=== PATIENT | female | born 1990 | race Caucasian/White ===

== ENCOUNTER 2017-10-30 00:32 | Emergency (ER) | payer BC, SELFPAY ==
[2017-10-30 00:45] VITALS: BP 144/80; PULSE 97; RESP 18; TEMP 36.6; O2SAT 97; BMI 18.4
--- NOTE | 2017-10-30 01:12 | HMH.EDANX ---
ED Disposition Clinical Impression: Acute anxiety Disposition: Home, Self-Care Condition on Discharge: Good Instructions: Anxiety and Panic Attacks (Alternative Therapy) Additional Instructions: call pcp for follow up Referrals: Tho Glover MD [Primary Care Provider] - - Critical Care Critical Care Time: No Attestation: On 10/30/17, the high probability of a clinically significant, sudden or life threatening deterioration of the following system(s) required my full and direct attention, intervention and personal management. The time I documented below is in addition to time spent performing reported procedures but includes the following listed in this critical care notation. Medical Decision Making - Medical Records Medical records reviewed: Yes: I reviewed the patient's medical records. Vital Signs: 10/30/17 00:45 Temperature 97.8 F Temperature Source Oral Pulse Rate [Right Brachial] 97 H Respiratory Rate 18 Blood Pressure [Right Arm] 144/80 Blood Pressure Mean [Right Arm] 101 Blood Pressure Source [Right Arm] Automatic Cuff Blood Pressure Position [Right Arm] Sitting 02 Sat by Pulse Oximetry 97 Oxygen Delivery Method Room Air - Lab Data Lab results reviewed: Yes: I reviewed the patient's lab results. Orders (Tests/Meds): ED MEDICATIONS Discontinued Medications Generic Name Dose Route Start Last Admin Trade Name Freq PRN Reason Stop Dose Admin Ondansetron HCl 4 mg 10/30/17 00:53 10/30/17 00:54 Zofran 4mg Odt SL 10/30/17 00:54 4 mg ONCE ONE Administration - River Inquiry Pt receiving controlled substance: No Anxiety HPI - General Chief Complaint: Anxiety Stated Complaint: Panic Attacks Time Seen by Provider: 10/30/17 00:50 Mode of Arrival: Ambulatory Limitations: No Limitations Description of Symptoms (Recalled from ER Triage Doc. by RN): anxiety attack started 2 hours ago. started a new job today, reports she thinks that is what brought it on. - History of Present Illness HPI narrative: hx of anxiety with acute episode complaint: anxiety Onset (ago): hour(s) Severity: similar to previous episodes Place: home History of similar episodes: Yes Provoking factors: work/job stress - Related Data Home Medications: Home Medications Medication Instructions Recorded Confirmed Esomeprazole Magnesium [Nexium] 20 mg PO DAILY 10/30/17 10/30/17 Fluoxetine HCl [Prozac 20mg 20 mg PO DAILY 10/30/17 10/30/17 Capsule] Allergies/Adverse Reactions: Allergies Allergy/AdvReac Type Severity Reaction Status Date / Time No Known Allergies Allergy Verified 10/30/17 00:51 [facility] History I have reviewed the patient's past medical history: Yes Medical History: Denies:: Cancer, Diabetes Mellitus Type 1, Diabetes Mellitus Type 2, MRSA Amputation: No Fractures: No - Social History Educational Level: Completed College Smoking Status: Never smoker Alcohol Intake: never - Psychiatric History Expresses thoughts of harming self/others: None Suicide Plan Description: No Plan ROS Obtained: Yes All systems reviewed & no additional complaints - Constitutional Constitutional: Denies fever(s) - Eyes Eyes: Denies change in vision - ENT Ears, Nose, Mouth, and Throat: Denies sore throat - Cardiovascular Cardiovascular: Denies chest pain - Respiratory Respiratory: No chest congestion - Gastrointestinal Gastrointestingal: Denies: abdominal pain - Musculoskeletal Musculoskeletal: Denies joint pain - Integumentary/Breasts Skin/Breast: Denies rash - Neurologic Neurologic: Denies seizure-like activity Physical Exam - General General appearance: in no apparent distress, anxious - Head Head exam: normocephalic - Eye Eye exam: Present: PERRL, EOMI - ENT ENT exam: Present: mucous membranes moist - Neck Neck exam: Present: trachea midline - Respiratory Respiratory exam: Absent: respiratory distress - Cardiov
--- NOTE | 2017-10-30 01:16 | ED_ITS ---
ED Disposition Clinical Impression: Acute anxiety Disposition: Home, Self-Care Condition on Discharge: Good Instructions: Anxiety and Panic Attacks (Alternative Therapy) Additional Instructions: call pcp for follow up Referrals: Tho Glover MD [Primary Care Provider] - - Critical Care Critical Care Time: No Attestation: On 10/30/17, the high probability of a clinically significant, sudden or life threatening deterioration of the following system(s) required my full and direct attention, intervention and personal management. The time I documented below is in addition to time spent performing reported procedures but includes the following listed in this critical care notation. Medical Decision Making - Medical Records Medical records reviewed: Yes: I reviewed the patient's medical records. Vital Signs: 10/30/17 00:45 Temperature 97.8 F Temperature Source Oral Pulse Rate [Right Brachial] 97 H Respiratory Rate 18 Blood Pressure [Right Arm] 144/80 Blood Pressure Mean [Right Arm] 101 Blood Pressure Source [Right Arm] Automatic Cuff Blood Pressure Position [Right Arm] Sitting 02 Sat by Pulse Oximetry 97 Oxygen Delivery Method Room Air - Lab Data Lab results reviewed: Yes: I reviewed the patient's lab results. Orders (Tests/Meds): ED MEDICATIONS Discontinued Medications Generic Name Dose Route Start Last Admin Trade Name Freq PRN Reason Stop Dose Admin Ondansetron HCl 4 mg 10/30/17 00:53 10/30/17 00:54 Zofran 4mg Odt SL 10/30/17 00:54 4 mg ONCE ONE Administration - [facility] Inquiry Pt receiving controlled substance: No Anxiety HPI - General Chief Complaint: Anxiety Stated Complaint: Panic Attacks Time Seen by Provider: 10/30/17 00:50 Mode of Arrival: Ambulatory Limitations: No Limitations Description of Symptoms (Recalled from ER Triage Doc. by RN): anxiety attack started 2 hours ago. started a new job today, reports she thinks that is what brought it on. - History of Present Illness HPI narrative: hx of anxiety with acute episode complaint: anxiety Onset (ago): hour(s) Severity: similar to previous episodes Place: home History of similar episodes: Yes Provoking factors: work/job stress - Related Data Home Medications: Home Medications Medication Instructions Recorded Confirmed Esomeprazole Magnesium [Nexium] 20 mg PO DAILY 10/30/17 10/30/17 Fluoxetine HCl [Prozac 20mg 20 mg PO DAILY 10/30/17 10/30/17 Capsule] Allergies/Adverse Reactions: Allergies Allergy/AdvReac Type Severity Reaction Status Date / Time No Known Allergies Allergy Verified 10/30/17 00:51 [facility] History I have reviewed the patient's past medical history: Yes Medical History: Denies:: Cancer, Diabetes Mellitus Type 1, Diabetes Mellitus Type 2, MRSA Amputation: No Fractures: No - Social History Educational Level: Completed College Smoking Status: Never smoker Alcohol Intake: never - Psychiatric History Expresses thoughts of harming self/others: None Suicide Plan Description: No Plan ROS Obtained: Yes All systems reviewed & no additional complaints - Constitutional Constitutional: Denies fever(s) - Eyes Eyes: Denies change in vision
--- NOTE | 2017-10-30 01:58 | PC.NURSE ---
ativan ,phenergan im and take home pack verified by Melinda Cosme
[2017-10-30 02:12] VITALS: BP 124/78; PULSE 80; RESP 20; TEMP 36.6; O2SAT 100
== END 2017-10-30 02:15 | disposition home or self-care (01) ==
PROVIDERS: Emergency Provider Emergency Medicine; PCP Family Medicine
DX: F41.0 Panic disorder [episodic paroxysmal anxiety] (principal)
CPT/HCPCS: 96372; 99281

== ENCOUNTER 2019-06-25 10:05 | Outpatient (CLI) | payer BC, SELFPAY ==
[2019-06-25 10:25] VITALS: BP 102/58; PULSE 86; RESP 18; O2SAT 97
[2019-06-25 10:55] VITALS: BP 104/66; PULSE 78; RESP 18
[2019-06-25 11:25] VITALS: BP 114/65; PULSE 84; RESP 18
[2019-06-25 11:55] VITALS: BP 104/55; PULSE 77; RESP 16
[2019-06-25 12:25] VITALS: BP 105/53; PULSE 80; RESP 18
== END 2019-06-25 12:35 | disposition home or self-care (01) ==
LOC: INF 10:05
PROVIDERS: Visit Provider Internal Medicine Hematology & Oncology
DX: Z45.2 Encounter for adjustment and management of vascular access device (principal); C50.211 Malignant neoplasm of upper-inner quadrant of right female breast; F41.9 Anxiety disorder, unspecified; R19.7 Diarrhea, unspecified
CPT/HCPCS: 96360; 96361; J1642

== ENCOUNTER → 2020-11-26 12:04 | Outpatient (CLI) | payer BC, SELFPAY | PROVIDERS: PCP Family Medicine; Visit Provider Plastic Surgery | DX: Z01.818 Encounter for other preprocedural examination (principal); Z20.822 Contact with and (suspected) exposure to COVID-19 | CPT/HCPCS: U0003 ==

== ENCOUNTER 2021-05-19 15:16 | Emergency (ER) | payer BC, SELFPAY ==
[2021-05-19 15:50] VITALS: BP 128/68; PULSE 80; RESP 18; TEMP 36.9; O2SAT 98; BMI 21.5
--- NOTE | 2021-05-19 16:42 | HMH.EDUTC ---
[facility] [place] Clinical Impression: Strep throat Disposition: Home, Self-Care Condition on Discharge: Good Instructions: Strep Throat, DI for Strep Throat, DI for COVID-19 (Suspected or Confirmed ), Preventing the Spread of Coronavirus Discharge Instructions Additional Instructions: *Monitor Temp, Over the counter Motrin or Tylenol as directed/as needed Tylenol every 4 hours and Motrin every 6 hours (as long as your family doctor has told you that you can take it) for fever or pain. and straight to ER if unable to lower temp less than 101.0 after medication given *Warm salt water gargles may help to soothe the throat *Throat Lozenges *Warm fluids like tea with honey may help to soothe the throat *Sleep elevated *Humidifier/Vaporizer *If you did not take Penicillin shot or was unable to, start taking antibiotic immediately and make sure that you take it for the FULL length of time although you should start to feel better in 24-48 hours *change toothbrush and toothpaste 24-48 hours after starting to take antibiotics so you do not reinfect yourself Monitor Temp. Tylenol and/or Ibuprofen as needed. ER if fever is no less than 101 despite alternating Tylenol and Ibuprofen * Encourage fluids, water, Gatorade, powerade, pedialyte if /toddler/or child *Cold fluids, popsicles and ice cream may feel good on his throat Follow up IMMEDIATELY for new or worsening symptoms or no Noticeable improvement over the next 48-72 hours. 911 for difficulty breathing or swallowing You were tested for today for COVID19 your test result should be back in the next 24-48 hours, you may call to the [facility] to see if your test results are back in the next 48 hours [phone] [facility] hours are 9am-9pm You was given a handout with instructions for Self Quarantine and Self isolation for while you wait on test results and what to do if they are positive If you are positive the Health Dept will be contacting you also Make sure to take your Vitamins Vit. C Vit D and Zinc if you can take them Prescriptions: Amoxicillin [Amoxicillin 500mg Cap] 500 mg PO BID 10 Days #20 cap Transmission Status: Pending to [id number] Referrals: Justin Izquierdo [Primary Care Provider] - Forms: Work/School Release Time of Disposition: 16:46 Medical Decision Making - River Inquiry Pt receiving controlled substance: No River was queried for this patient: No Vital Signs: 05/19/21 15:50 Temperature 98.4 F Temperature Source Oral Pulse Rate [Right Brachial] 80 Respiratory Rate 18 Blood Pressure [Right Arm] 128/68 Blood Pressure Mean [Right Arm] 88 Blood Pressure Source [Right Arm] Automatic Cuff Blood Pressure Position [Right Arm] Sitting 02 Sat by Pulse Oximetry 98 Oxygen Delivery Method Room Air - Lab Data Lab results reviewed: Yes: I reviewed the patient's lab results. Orders (Tests/Meds): ORDERS Category Date Time Status Covid-19 Nasal PCR ([facility]) Routine Lab 05/19/21 16:34 Ordered [facility] [place] HPI - General Stated complaint: congestion, runny nose, sore throat, chills Time Seen by Provider: 05/19/21 16:42 Mode of Arrival: Ambulatory Source of Information: Patient Limitations: No Limitations Description of Symptoms (Recalled from Triage Doc. by RN): PATIENT C/O SORE THROAT HEENT Symptoms (Recalled from RN notes): Yes Resp Symptoms (Recalled from RN notes): No Skin Symptoms (Recalled from RN notes): No MS Symptoms (Recalled from RN notes): No Functional Status (Recalled from RN notes): WNL - History of Present Illness Provider Complaint: Patient states that she has not felt well for a couple of days State that she has been having sore throat, cough, headache and body aches State that she is not sure if she may have COVID or strep throat so she wanted to get checked for both - Related Data Home Medications Medication Instructions Recorded Confirmed Buspirone HCl [Buspar 10mg 10 mg PO BID 06/25/19 05/31/20 tablet] LORazepam [A
[2021-05-19 16:49] VITALS: BP 128/68; PULSE 80; RESP 18; TEMP 36.9; O2SAT 98
[2021-05-19 16:51] LABS: UTC Strep Screen (Rapid) Positive (Negative)
== END 2021-05-19 16:51 | disposition home or self-care (01) ==
PROVIDERS: Emergency Provider Nurse Practitioner; PCP Family Medicine
DX: J02.0 Streptococcal pharyngitis (principal); F41.8 Other specified anxiety disorders; Z20.822 Contact with and (suspected) exposure to COVID-19
CPT/HCPCS: 87880; 99203; G0463; U0003

== ENCOUNTER 2021-05-24 08:11 | Emergency (ER) | payer BC, SELFPAY ==
[2021-05-24 08:13] VITALS: BP 116/75; PULSE 113; RESP 18; TEMP 36.8; O2SAT 98; BMI 23.0
--- NOTE | 2021-05-24 08:35 | HMH.EDGENADL ---
ED Disposition Clinical Impression: Dog bite of arm Qualifiers: Encounter type: initial encounter Laterality: right Qualified Code(s): S41.151A - Open bite of right upper arm, initial encounter Disposition: Home, Self-Care Condition on Discharge: Good Prescriptions: Amoxicillin/Potassium Clav [Augmentin 875-125 Tablet] 1 tab PO Q12H #14 tab Transmission Status: Received by [id number] Referrals: Justin Izquierdo [Primary Care Provider] - Time of Disposition: 08:42 - Critical Care Critical Care Time: No Attestation: On , the high probability of a clinically significant, sudden or life threatening deterioration of the following system(s) required my full and direct attention, intervention and personal management. The time I documented below is in addition to time spent performing reported procedures but includes the following listed in this critical care notation. Medical Decision Making - Medical Records Medical records reviewed: Yes: I reviewed the patient's medical records. - River Inquiry Pt receiving controlled substance: No Vital Signs: 05/24/21 08:13 Temperature 98.2 F Temperature Source Oral Pulse Rate [Right Radial] 113 H Respiratory Rate 18 Blood Pressure [Right Arm] 116/75 Blood Pressure Mean [Right Arm] 88 Blood Pressure Source [Right Arm] Automatic Cuff Blood Pressure Position [Right Arm] Sitting 02 Sat by Pulse Oximetry 98 Oxygen Delivery Method Room Air Orders (Tests/Meds): ED MEDICATIONS Discontinued Medications Generic Name Dose Route Start Last Admin Trade Name Freq PRN Reason Stop Dose Admin Tetanus/Reduced Diphtheria/Acell Pertussis 0.5 ml 05/24/21 08:35 Tet/Diphth/Pert-Adult 0.5ml Syringe IM 05/24/21 08:36 .ONCE ONE Medical Decision Narrative: 30yo F evaluated for dog bite wounds to her right forearm. Patient no acute distress. Wounds are small and not actively bleeding. They were irrigated and reapproximated with Steri-Strips to allow for better drainage and lower risk of significant infection. Patient home on antibiotics. Follow-up with PCP 3 to 4 days. General Adult HPI - General Stated complaint: [id number] dog bite to right arm Time Seen by Provider: 05/24/21 08:35 Mode of Arrival: Ambulatory - History of Present Illness HPI narrative: 30yo F presents the emergency department after a dog bite to her right forearm. Patient has 2 dogs that she was attempting to hold apart from fighting when one slipped out of her hand and bit her arm. Both dogs are up-to-date on their shots. Patient does not know last time she got tetanus shot. No other complaints at this time. - Related Data Home Medications Medication Instructions Recorded Confirmed Buspirone HCl [Buspar 10mg 10 mg PO BID 06/25/19 05/31/20 tablet] LORazepam [Ativan 0.5mg 0.5 mg PO Q4HP PRN 06/25/19 05/31/20 tablet] tamoxifen 20 mg tablet mg PO 11/03/19 05/31/20 venlafaxine 75 mg capsule,extended mg PO 11/03/19 05/31/20 release 24 hr Previous Rx's Medication Instructions Recorded nitrofurantoin 100 mg PO Q12H PRN 5 Days #10 cap 05/31/20 monohydrate/macrocrystals 100 mg capsule Amoxicillin [Amoxicillin 500mg 500 mg PO BID 10 Days #20 cap 05/19/21 Cap] Amoxicillin/Potassium Clav 1 tab PO Q12H #14 tab 05/24/21 [Augmentin 875-125 Tablet] Allergies Allergy/AdvReac Type Severity Reaction Status Date / Time No Known Allergies Allergy Verified 05/31/20 18:24 [facility] History - Hepatitis A Screen Drug use history?: No Attestation statement:: This patient has been screened for Hepatitis A risk factors. I have reviewed the patient's past medical history: Yes Medical History: Reports:: Anxiety, Cancer, Depression Denies:: Diabetes Mellitus Type 1, Diabetes Mellitus Type 2, MRSA Other Medical History: Reports: Chemotherapy, Sinus Problems Other Surgeries: Yes: , Diagnostic Lap, EGD, Hysterectomy-Total Amputation: N
--- NOTE | 2021-05-24 08:50 | PC.NURSE ---
Faxed animal bite form to health dept
[2021-05-24 09:50] VITALS: BP 117/77; PULSE 99; RESP 20; TEMP 36.8; O2SAT 98
== END 2021-05-24 09:51 | disposition home or self-care (01) ==
PROVIDERS: Emergency Provider Family Medicine; PCP Family Medicine
DX: S41.151A Open bite of right upper arm, initial encounter (principal); W54.0XXA Bitten by dog, initial encounter; Z23 Encounter for immunization; F41.8 Other specified anxiety disorders
CPT/HCPCS: 90471; 90715; 99281

== ENCOUNTER → 2021-10-03 15:05 | Outpatient (CLI) | payer BC, SELFPAY | PROVIDERS: Visit Provider Nurse Practitioner | DX: U07.1 COVID-19 (principal) | CPT/HCPCS: C9803; U0003; U0005 ==

== ENCOUNTER → 2022-12-20 13:11 | Outpatient (CLI) | payer BC, SELFPAY ==
[2022-12-20 15:32] LABS: 25-OH Vitamin D, Total 61.5 ng/mL (30-100)
[2022-12-20 16:33] LABS: Vitamin B12 278 pg/mL (239-931)
[2022-12-20 17:10] LABS: Iron 122 ug/dL (37-170)
[2022-12-20 17:57] LABS: Ferritin 34.6 ng/ml (6.24-137)
[2022-12-20 18:39] LABS: Total Iron Binding Capacity 349 ug/dL (265-497)
== END ==
PROVIDERS: PCP Family Medicine; Visit Provider Internal Medicine Hematology & Oncology
DX: D70.9 Neutropenia, unspecified (principal)
CPT/HCPCS: 36415; 82306; 82607; 82728; 82746; 83540; 83550

== ENCOUNTER → 2023-04-17 08:34 | Outpatient (POV) | payer BC, SELFPAY | PROVIDERS: Visit Provider Dermatology | DX: Z00.00 Encounter for general adult medical examination without abnormal findings (principal) ==

== ENCOUNTER 2023-06-10 17:37 | Emergency (ER) | payer BC, SELFPAY ==
[2023-06-10] VITALS (7 sets, daily range): BP systolic 119–147; BP diastolic 57–79; PULSE 61–96; RESP 18–20; TEMP 37.2; O2SAT 99–100; BMI 22.5
--- NOTE | 2023-06-10 17:57 | CT_ITS ---
PROCEDURE INFORMATION: Exam: CT Abdomen And Pelvis With Contrast Exam date and time: 06/10/2023 6:50 PM Age: 32 years old Clinical indication: Abdominal pain; Additional info: Epigastric/ruq pain TECHNIQUE: Imaging protocol: Computed tomography of the abdomen and pelvis with contrast. Radiation optimization: All CT scans at this facility use at least one of these dose optimization techniques: automated exposure control; mA and/or kV adjustment per patient size (includes targeted exams where dose is matched to clinical indication); or iterative reconstruction. Contrast material: ISOVUE; Contrast volume: 75 ml; Contrast route: IV; REPORTING DATA: Count of CT and Cardiac NM exams in prior 12 months: This patient has received 0 known CTs and 0 known cardiac nuclear medicine studies in the 12 months prior to the current study. COMPARISON: CR [id number] XR ribs LT min 3V w CXR1V 05/21/2018 9:03 PM FINDINGS: Lungs: There are areas of subpleural reticulation throughout the visualized lungs which are nonspecific. Liver: Normal. No mass. Gallbladder and bile ducts: There is cholelithiasis within an otherwise normal gallbladder. Pancreas: Normal. No ductal dilation. Spleen: Normal. No splenomegaly. Adrenal glands: Normal. No mass. Kidneys and ureters: There is a 2.1 x 1.7 cm lesion emanating from the upper pole of the left kidney (image 25 series 3), concerning for soft tissue mass. Stomach and bowel: Unremarkable. No obstruction. No mucosal thickening. Appendix: No evidence of appendicitis. Intraperitoneal space: Unremarkable. No free air. No significant fluid collection. Vasculature: Unremarkable. No abdominal aortic aneurysm. Lymph nodes: Unremarkable. No enlarged lymph nodes. Urinary bladder: Unremarkable as visualized. Reproductive: The patient has undergone prior hysterectomy. 1.7 cm left ovarian cyst. Bones/joints: Unremarkable. No acute fracture. Soft tissues: There are bilateral breast implants. There is a small fat containing umbilical hernia. IMPRESSION: 1. 2.1 cm left upper pole renal lesion. 2. Cholelithiasis without CT evidence for acute cholecystitis. COMMENTS: Consistent with the [place]'s Incidental Findings Committee white paper (J Am Jannie Radiol 2018): Any incidental renal lesion less than 1 cm or classified as too small to characterize, or any incidental cystic renal lesion characterized as simple-appearing, is likely benign. No follow-up imaging is recommended for these lesions per consensus recommendations based on imaging criteria.
--- NOTE | 2023-06-10 17:59 | XR_ITS ---
PROCEDURE INFORMATION: Exam: XR Chest Exam date and time: 06/10/2023 7:01 PM Age: 32 years old Clinical indication: Pain; Chest pressure; Additional info: Chest/epigastric pain TECHNIQUE: Imaging protocol: Radiologic exam of the chest. Views: 1 view. COMPARISON: CR [id number] XR ribs LT min 3V w CXR1V 05/21/2018 9:03 PM FINDINGS: Limitations: The patient is wearing a bra which minimally limits the study. Lungs: Unremarkable. No consolidation. Pleural spaces: Unremarkable. No pleural effusion. No pneumothorax. Heart/Mediastinum: Unremarkable. No cardiomegaly. Bones/joints: Unremarkable for patient age. IMPRESSION: No dense parenchymal consolidation, pleural effusion, or pneumothorax.
--- NOTE | 2023-06-10 18:07 | HMH.EDGENADL ---
Discharge Plan Disposition Patient Disposition: Home, Self-Care Condition: Good Prescriptions Prescriptions: New pantoprazole 40 mg tablet,delayed release (DR/EC) 40 mg PO DAILY Qty: 30 0RF famotidine [Pepcid] 20 mg tablet 20 mg PO BID Qty: 60 0RF No Action tamoxifen 20 mg tablet PO Patient Comments: TAKE 1 TABLET BY MOUTH ONCE DAILY venlafaxine 75 mg capsule,extended release 24hr PO Patient Comments: TAKE 1 CAPSULE BY MOUTH ONCE DAILY nitrofurantoin monohyd/m-cryst 100 mg capsule 100 mg PO Q12H PRN (Reason: uti) 5 Days Qty: 10 0RF Rx Instructions: must administer with a meal/food lorazepam 0.5 MG tablet 0.5 mg PO Q4HP PRN (Reason: Anxiety) buspirone 10 MG tablet 10 mg PO BID amoxicillin 500 MG capsule 500 mg PO BID 10 Days Qty: 20 0RF amoxicillin-pot clavulanate 1 EACH tablet 1 tab PO Q12H Qty: 14 0RF Referrals Follow up/Referrals: Justin Izquierdo [Primary Care Provider] - See instructions Activity Restrictions/Add. Instructions Additional Instructions/Restrictions: You were evaluated in the emergency department today. Please bead picker your prescriptions at the pharmacy and take them as prescribed. Stop taking your omeprazole. Follow-up closely with your primary care provider. I also recommend close follow-up with gastroenterology for management of your acid reflux. It may be worthwhile to be evaluated by a surgeon for evaluation of your hiatal hernia as well. You do have a lesion on your left kidney noted on CT scan. We are unsure what this is at this time, however I recommend following up with your oncologist and primary care provider for further work-up of this. Please return to the emergency department for any new or worsening symptoms. Clinical Impressions Clinical Impression: Hiatal hernia with GERD, Elevated lipase, Left kidney mass, Cholelithiasis Instructions Patient Instructions: DI for Gastroesophageal Reflux Disease (GERD) Discharge ED Provider: Samantha Hendricks General Adult HPI General Chief complaint: PAIN Stated complaint: Middle Abd Pain Time Seen by Provider: 06/10/23 17:48 History of Present Illness HPI narrative: This patient is a 32-year-old female with a history of hiatal hernia, GERD, breast cancer status post surgery as well as chemo/radiation, and hysterectomy who presented to the emergency department for evaluation with concern for epigastric pain, nausea, frequent belching, and loss of appetite. This has been going on for approximate 2 months now but is acutely worsened over the last 4 days. She states that she has been on omeprazole and has been trying Carafate at home without significant improvement. She denies any fevers, chills, vomiting, chest pain, shortness of breath, dysuria, or other concerns, but she does note that she has had nausea as well as diarrhea. Nothing seems to make her symptoms better or worse. Related Data Home Medications Medication Instructions Recorded Confirmed buspirone 10 mg tablet 10 mg PO BID Depression 06/25/19 05/31/20 lorazepam 0.5 mg tablet 0.5 mg PO Q4HP PRN Anxiety 06/25/19 05/31/20 tamoxifen 20 mg tablet mg PO 11/03/19 05/31/20 venlafaxine 75 mg capsule,extended mg PO 11/03/19 05/31/20 release 24 hr Previous Rx's Medication Instructions Recorded nitrofurantoin 100 mg PO Q12H PRN uti 5 days #10 05/31/20 monohydrate/macrocrystals 100 mg caps capsule amoxicillin 500 mg capsule 500 mg PO BID 10 days #20 caps 05/19/21 amoxicillin 875 mg-potassium 1 tab PO Q12H #14 tabs 05/24/21 clavulanate 125 mg tablet famotidine 20 mg tablet (Pepcid) 20 mg PO BID #60 tabs 06/10/23 pantoprazole 40 mg tablet,delayed 40 mg PO DAILY #30 tabs 06/10/23 release Allergies Allergy/AdvReac Type Severity Reaction Status Date / Time No Known Allergies Allergy Verified 05/31/20 18:24 [facility] Disclaimer: The information contained in this section may have been u
--- NOTE | 2023-06-10 18:09 | ECG_ITS ---
APPROVED REPORT Exam: Resting ECG HR:98 bpm ECG Measurements Heart Rate 98 AXES AK 120 P 56 QRSd 84 QRS 80 QT 383 T 54 QTc 438 Conclusion SINUS RHYTHM NORMAL ECG UNCONFIRMED REPORT Electronically signed by : Louis Mayo MD 06/11/2023 17:09:47
[2023-06-10 18:36] LABS: Alanine Aminotransferase 47 U/L (12-78); Albumin Level 4.9 g/dl (3.5-5.0); Albumin/Globulin Ratio 1.5 (1.1-1.8); Alkaline Phosphatase 39 U/L (38-126); Anion Gap 17.1 mEq/L (5-15); Aspartate Amino Transferase 50 U/L (14-36); Bilirubin,Total 1.1 mg/dl (0.2-1.3); Blood Urea Nitrogen 14 mg/dl (7-17); Calcium 9.4 mg/dl (8.4-10.2); Carbon Dioxide 21 mmol/L (22.0-30.0); Chloride 107 mmol/L (98-107); Creatinine Clearance Estimated 104 mL/min (50-200); Estimated Glomerular Filt Rate 83 ml/min (>60); GFR (African American) 101 ML/MIN (>60); Globulin 3.3 g/dL (1.3-3.2); Glucose 95 mg/dl (74-100); Lipase 362 U/L (23-300); Potassium 4.1 mmoL/L (3.5-5.1); Sodium 141 mmol/L (136-145); Total Protein,Serum 8.2 g/dl (6.3-8.2)
[2023-06-10 18:46] LABS: Basophils % 0.5 % (0.1-2.0); Eosinophils # 0.1 K/mm3 (0.0-0.4); Eosinophils % 2.2 % (0.1-12.0); Hematocrit 41.2 % (37.0-47.0); Hemoglobin 13.1 g/dL (12.2-16.2); Lymphocytes % 37.4 % (10-50); Mean Corpuscular HGB Conc 31.9 g/dL (31.8-35.4); Mean Corpuscular Hemoglobin 29.6 pg (27.0-31.2); Mean Corpuscular Volume 93.1 fl (81-99); Mean Platelet Volume 8.3 fl (7.4-10.4); Monocytes # 0.3 K/mm3 (0.1-1.0); Monocytes % 6.2 % (1.7-9.3); Neutrophils # 2.8 K/mm3 (1.8-7.8); Neutrophils % 53.7 % (37.0-80.0); Platelet Count 236 K/mm3 (142-424); Red Blood Count 4.43 M/mm3 (4.20-5.40); Red Cell Distribution Width 12.1 % (11.5-17.5); White Blood Count 5.3 K/mm3 (4.8-10.8)
== END 2023-06-10 20:17 | disposition home or self-care (01) ==
PROVIDERS: Emergency Provider Emergency Medicine; PCP Family Medicine
DX: K80.20 Calculus of gallbladder without cholecystitis without obstruction (principal); N28.9 Disorder of kidney and ureter, unspecified; K21.9 Gastro-esophageal reflux disease without esophagitis; K44.9 Diaphragmatic hernia without obstruction or gangrene; Z85.3 Personal history of malignant neoplasm of breast
CPT/HCPCS: 71045; 74177; 80053; 83690; 85025; 93005; 96361; 96374; 96375; 99285; J2405; Q9967

== ENCOUNTER 2024-07-22 14:15 | Outpatient (CLI) | payer BC, SELFPAY ==
[2024-07-22 15:01] LABS: Basophils # 0.1 K/mm3 (0-0.2); Eosinophils # 0.1 K/mm3 (0.0-0.4); Eosinophils % 1.7 % (0.1-12.0); Hematocrit 42.3 % (37.0-47.0); Hemoglobin 14.1 g/dL (12.2-16.2); Lymphocytes # 1.9 K/mm3 (0.7-4.5); Lymphocytes % 34.4 % (10-50); Mean Corpuscular HGB Conc 33.3 g/dL (31.8-35.4); Mean Corpuscular Hemoglobin 31.9 pg (27.0-31.2); Mean Corpuscular Volume 95.8 fl (81-99); Mean Platelet Volume 7.8 fl (7.4-10.4); Monocytes # 0.3 K/mm3 (0.1-1.0); Monocytes % 5.7 % (1.7-9.3); Neutrophils # 3.1 K/mm3 (1.8-7.8); Neutrophils % 57.2 % (37.0-80.0); Platelet Count 187 K/mm3 (142-424); Red Blood Count 4.41 M/mm3 (4.20-5.40); Red Cell Distribution Width 12.5 % (11.5-17.5); White Blood Count 5.5 K/mm3 (4.8-10.8)
[2024-07-22 15:10] LABS: Alanine Aminotransferase 15 U/L (12-78); Albumin Level 4.8 g/dl (3.5-5.0); Albumin/Globulin Ratio 1.8 (1.1-1.8); Alkaline Phosphatase 50 U/L (38-126); Amylase 74 U/L (30-110); Anion Gap 0.4 mEq/L (5-15); Aspartate Amino Transferase 27 U/L (14-36); Bilirubin,Total 0.7 mg/dl (0.2-1.3); Blood Urea Nitrogen 10 mg/dl (7-17); Calcium 9.3 mg/dl (8.4-10.2); Carbon Dioxide 28 mmol/L (22.0-30.0); Chloride 114 mmol/L (98-107); Estimated Glomerular Filt Rate 83 ml/min (>60); GFR (African American) 100 ML/MIN (>60); Globulin 2.6 g/dL (1.3-3.2); Glucose 87 mg/dl (74-100); Lipase 70 U/L (23-300); Potassium 3.4 mmoL/L (3.5-5.1); Sodium 139 mmol/L (136-145); Total Protein,Serum 7.4 g/dl (6.3-8.2)
[2024-07-22 15:20] LABS: Total Iron Binding Capacity 281 ug/dL (265-497)
[2024-07-22 15:45] LABS: Ferritin 42.3 ng/ml (6.24-137)
[2024-07-22 15:59] LABS: Vitamin B12 271 pg/mL (239-931)
[2024-07-22 16:12] LABS: Iron 127 ug/dL (37-170)
[2024-07-23 16:18] LABS: Deamidated Gliadin Abs, IgA 10 units (0-19); Deamidated Gliadin Abs, IgG 2 units (0-19); Endomysial IgA Antibody Negative (Negative); Tissue Transglutaminase IgA Ab <2 U/mL (0-3); Tissue Transglutaminase IgG Ab <2 U/mL (0-5)
[2024-07-25 08:22] LABS: Reticulin IgA Antibody Negative titer (Neg:<1:2.5)
[2024-08-06 06:19] LABS: 1,25 Dihydroxy Vitamin D 48 pg/mL (.); 1,25-Dihydroxy, Vitamin D-2 <10 pg/mL (.); 1,25-Dihydroxy, Vitamin D-3 48 pg/mL (.)
== END 2024-07-22 23:59 | disposition home or self-care (01) ==
LOC: LAB 14:16
PROVIDERS: PCP Nurse Practitioner; Visit Provider Internal Medicine Gastroenterology
DX: K85.90 Acute pancreatitis without necrosis or infection, unspecified (principal); R10.13 Epigastric pain; R14.0 Abdominal distension (gaseous); K74.69 Other cirrhosis of liver; B19.20 Unspecified viral hepatitis C without hepatic coma
CPT/HCPCS: 36415; 80053; 82150; 82607; 82652; 82728; 83516; 83540; 83550; 83690; 85025; 86255; 86256

== ENCOUNTER 2024-08-03 12:45 | Outpatient (CLI) | payer BC, SELFPAY ==
[2024-08-05 17:10] LABS: Pancreatic Elastase, Fecal >800 (>200)
== END 2024-08-03 23:59 | disposition home or self-care (01) ==
LOC: LAB 12:47
PROVIDERS: PCP Nurse Practitioner; Visit Provider Internal Medicine Gastroenterology
DX: K85.90 Acute pancreatitis without necrosis or infection, unspecified (principal); R10.13 Epigastric pain; R14.0 Abdominal distension (gaseous)
CPT/HCPCS: 82656

== ENCOUNTER 2024-08-19 13:48 | Outpatient (CLI) | payer BC, SELFPAY ==
[2024-08-19 14:42] VITALS: BMI 19.0
== END 2024-08-19 23:59 | disposition home or self-care (01) ==
LOC: DIETICIAN 13:48
PROVIDERS: PCP Nurse Practitioner; Visit Provider Internal Medicine Gastroenterology
DX: E74.31 Sucrase-isomaltase deficiency (principal)
CPT/HCPCS: 97802

== ENCOUNTER 2025-06-12 13:00 | Outpatient (CLI) | payer BC, SELFPAY ==
--- OUTSIDE RECORDS SUMMARY | 2025-06-12 13:03 | XMS_ITS | Encounter Summary ---
Author Organization [employer] ([place], [place], [place], [place]) Address [address] [place] [address] Care Team Providers Care Electroneurodiagnostic Technologist Name Role Phone Ida Manzo MD Primary Care Provider [phone] Encounter Details Date Type Department Care Team (Late st Contact Info) Description 08/17/2019 Transcribed Document [facility] [address] [place] [address] Feliz Goldberg MD [address] [facility] [place] [address] Social History Tobacco Use Types Packs/Day Years Used Date Smoking Tobacco: Never Assessed Comments Unknown Sex and Gender Information Value Date Recorded Sex Assigned at Not on file Legal Sex Female 6:39 PM CDT Gender Identity Not on file Sexual Orientation Not on file documented as of this encounter Miscellaneous Notes * Cerner Conversion Note - Feliz Goldberg MD - 08/17/2019 4:14 PM EST Electronically signed by Pato Jovel Conversion Family And Divorce Legal Assistant Cerner at 12/24/2022 11:29 PM CDT documented in this encounter Plan of Treatment Upcoming Encounters Date Type Department Care Team (Late st Contact Info) Description 06/15/2025 3:00 PM EDT Appointment [facility] Breast [facility] [address] [facility] [address] [place] [address] 08/10/2025 1:15 PM EST Office [facility] [address] [place] [phone] Ida Manzo MD [facility] [address] [place] [address] documented as of this encounter Visit Diagnoses Not on filedocumented in this encounter Care Teams Electroneurodiagnostic Technologist Relationship Specialty Start Date End Date Ida Manzo MD [facility] [address] [place] [address] PCP - General Hematology and Oncology 10/13/22 documented as of this encounter
--- OUTSIDE RECORDS SUMMARY | 2025-06-12 13:03 | XMS_ITS | Encounter Summary ---
Author Organization [employer] ([place], [place], [place], [place]) Address [address] [place] [address] Care Team Providers Care Merchandise Distributor Name Role Phone Ida Manzo MD Primary Care Provider [phone] Encounter Details Date Type Department Care Team (Late st Contact Info) Description 08/18/2019 Transcribed Document [facility] [place] [place] Family Medicine [facility] [place] [address] ProviderAdy MD [address] [place] [address] Social History Tobacco Use Types Packs/Day Years Used Date Smoking Tobacco: Never Assessed Comments Unknown Sex and Gender Information Value Date Recorded Sex Assigned at Not on file Legal Sex Female 6:39 PM CDT Gender Identity Not on file Sexual Orientation Not on file documented as of this encounter Miscellaneous Notes * Cerner Conversion Note - Historical ProviderMD - 08/18/2019 12:02 AM DIRECTOR OF STUDENT FINANCIAL SERVICES CR Chest 1 Vw Portable Ordered: 08/17/2019 Modified Reason for Exam: cp 08/17/2019 13:54 08/18/2019 00:02 (Steff Jacobs, Bulk Sugar Handler) No further action required documented in this encounter Plan of Treatment Upcoming Encounters Date Type Department Care Team (Late st Contact Info) Description 06/15/2025 3:00 PM EDT Appointment [address] [address] 08/10/2025 1:15 PM EST Office Visit [facility] - Vicki [address] [facility] [address] [place] [address] Ida Manzo MD [facility] [address] [place] [phone] documented as of this encounter Visit Diagnoses Not on filedocumented in this encounter Care Teams Merchandise Distributor Relationship Specialty Start Date End Date Ida Manzo MD [address] [facility] [address] [place] [address] PCP - General Hematology and Oncology 10/13/22 documented as of this encounter
--- OUTSIDE RECORDS SUMMARY | 2025-06-12 13:03 | XMS_ITS | Encounter Summary ---
Author Organization [employer] ([place], [place], [place], [place]) Address [address] [place] [address] Care Team Providers Care Reserve Officer Name Role Phone Ida Manzo MD Primary Care Provider [phone] Encounter Details Date Type Department Care Team (Late st Contact Info) Description 09/24/2019 Transcribed Document [facility] Surgery - [place] [place] [address] Travis Small MD [address] [place] [address] Social History Tobacco Use Types Packs/Day Years Used Date Smoking Tobacco: Never Assessed Comments Unknown Sex and Gender Information Value Date Recorded Sex Assigned at Not on file Legal Sex Female 6:39 PM CDT Gender Identity Not on file Sexual Orientation Not on file documented as of this encounter Miscellaneous Notes * Cerner Conversion Note - Travis Small MD - 09/24/2019 1:18 PM EST DATE OF PROCEDURE: 09/24/2019 SURGEON: Travis Small MD PREOPERATIVE DIAGNOSIS: Right breast cancer. POSTOPERATIVE DIAGNOSIS: Right breast cancer. PROCEDURE PERFORMED: 1. Right needle localized partial mastectomy. 2. Right axillary sentinel lymph node biopsy. ANESTHESIA: General. ESTIMATED BLOOD LOSS: Minimal. COMPLICATIONS: None. OPERATIVE INDICATIONS: Ms. Pollack is a 29-year-old female patient, who has recently completed neoadjuvant chemotherapy for an invasive right breast cancer. She has had an excellent clinical response. She requested breast conserving surgery and after the risks and benefits of operative intervention were explained to her, she wished to proceed. OPERATIVE FINDINGS: 1. She had a residual breast cancer and biopsy clip needle localized on the right. 2. The deep margin of the specimen was taken to the level of the pectoralis major muscle. 3. A single deep axillary sentinel lymph node was removed and sent to Pathology. OPERATIVE DESCRIPTION: After obtaining informed consent, Ms. Pollack was taken to the operative room, placed in supine position. General anesthesia was induced. Her right breast was prepped and draped in usual sterile fashion. Attention was turned to the needle localization wire. A small skin incision was made adjacent to the wire and dissection down into the breast tissue was achieved using electrocautery. Electrocautery was then used to excise the breast tissue surrounding the needle localization wire circumferentially and with adequate margins. The deep margin of the specimen was taken down to the level of the pectoralis major muscle. The implant capsule was not adjacent to this or in the area. The specimen was removed and oriented with a short stitch superiorly and a long stitch laterally. It was further marked with black ink deep and passed off to the Breast Center for specimen mammogram. Intraoperative confirmation confirmed that the residual abnormality and biopsy clip were contained within the specimen. Meticulous hemostasis was ensured using electrocautery. Attention was then turned to the right axilla where the gamma probe was used to identify the area of greatest uptake. A small skin incision was made overlying this area and dissection into the axillary tissue was achieved using electrocautery. Next, the gamma probe was used to identify single deep axillary sentinel lymph node. It was removed using electrocautery and surgical clips. It was passed off and sent to Pathology. There was no other significant uptake in the axilla. Meticulous hemostasis was ensured using electrocautery. Both skin incisions were then closed in 2 layers, followed by Dermabond. All sponge, needle, and instrument counts were correct at the end of the procedure. There were no complications. Ms. Pollack tolerated the procedure well. Finally, Ms. Pollack was extubated and taken to PACU in stable condition. /[id number] MD IDA Moe/AQ / IDA / MODL /[id number] CC: [facility] MD Travis Steele MD documented in this encounter Plan of Treatment Upcoming Encounters Date Type Department Care Team (Late st Contact Info) Description 06/15/2025 3:00 PM EDT Appointment [facility] [address] [facility] [address] [place] [address] 08/10/2025 1:15 PM EST [facility] [address] [place] [phone] Ida Manzo MD [address] [place] [address] [address] [place] [address] documented as of this encounter Visit Diagnoses Not on filedocumented in this encounter Care Teams Reserve Officer Relationship Specialty Start Date End Date Ida Manzo MD [address] [place] [address] [address] [place] [phone] PCP - General Hematology and Oncology 10/13/22 documented as of this encounter
--- OUTSIDE RECORDS SUMMARY | 2025-06-12 13:03 | XMS_ITS | Encounter Summary ---
Author Organization [employer] ([place], [place], [place], [place]) Address [address] [place] [address] Care Team Providers Care Corporate Technical Recruiter Name Role Phone Ida Manzo MD Primary Care Provider [phone] Encounter Details Date Type Department Care Team (Late st Contact Info) Description 09/24/2019 Transcribed Document [facility] [place] [address] ProviderAdy MD [address] [place], [place] [address] Social History Tobacco Use Types Packs/Day Years Used Date Smoking Tobacco: Never Assessed Comments Unknown Sex and Gender Information Value Date Recorded Sex Assigned at Not on file Legal Sex Female 6:39 PM CDT Gender Identity Not on file Sexual Orientation Not on file documented as of this encounter Miscellaneous Notes * Cerner Conversion Note - Ady ProviderMD - 09/24/2019 11:17 AM [facility] Main OR PostOp Summary Primary Physician: JULIA ESCALANTE MD-SUR Finalized Date/Time: 09/24/19 14:16:41 Pt. Name: MAGGI POLLACKDENISE Edwards D.O.B./Sex: 1990 Female Med Rec #: [id number] Physician: JULIA ESCALANTE MD-SUR Financial #: [id number] Pt. Type: O Room/Bed: [facility]/ Admit/Disch: 09/24/19 06:38:00 - Institution: [facility] Main OR PostOp Case Times Entry 1 In PACU II 09/24/19 13:02:00 Ready for PACU II 09/24/19 14:00:00 Discharge Discharge from PACU 09/24/19 14:00:00 II Last Modified By: Michelle Crain RN 09/24/19 14:16:38 [facility] Main OR PostOp Case Times Audit 09/24/19 14:16:38 Swamper: [id number] Modifier: [id number] <+> 1 Ready for PACU II Discharge <+> 1 Discharge from PACU II Finalized By: Michelle Crain, RN Document Signatures Signed By: Michelle Crain RN 09/24/19 14:16 documented in this encounter Plan of Treatment Upcoming Encounters Date Type Department Care Team (Late st Contact Info) Description 06/15/2025 3:00 PM EDT Appointment [address] [place] [address] 08/10/2025 1:15 PM EST Office Visit [place] [facility] - Vicki [facility] V[facility] [address] [place] [phone] Ida Manzo MD [address] [place] [address] [address] [place] [address] documented as of this encounter Visit Diagnoses Not on filedocumented in this encounter Care Teams Corporate Technical Recruiter Relationship Specialty Start Date End Date Ida Manzo MD [address] [place] [address] PCP - General Hematology and Oncology 10/13/22 documented as of this encounter
--- OUTSIDE RECORDS SUMMARY | 2025-06-12 13:03 | XMS_ITS | Encounter Summary ---
Author Organization [employer] ([place], [place], [place], [place]) Address [address] [place] [address] Care Team Providers Care Tanning Wheel Filler Name Role Phone Gregor Manzo MD Primary Care Provider [phone] Encounter Details Date Type Department Care Team (Late st Contact Info) Description 08/17/2019 Transcribed Document [facility] Family [place] [address] ProviderAdy MD [address] [place] [address] Social History Tobacco Use Types Packs/Day Years Used Date Smoking Tobacco: Never Assessed Comments Unknown Sex and Gender Information Value Date Recorded Sex Assigned at Not on file Legal Sex Female 6:39 PM CDT Gender Identity Not on file Sexual Orientation Not on file documented as of this encounter Miscellaneous Notes * Cerner Conversion Note - Ady Casillas MD - 08/17/2019 3:36 PM PEDIATRIC CARE COORDINATOR [address] [address] ARAM POLLACK :1990 Visit Time:08/17/2019 Your Visit Summary Your Care Team Primary Provider: ALKA ANNE Secondary Provider: Your Diagnosis Breast cancer Cough Fever Fever Medical Information You may obtain a copy of your Emergency Department visit from Medical Records by calling the hospital phone number listed above and asking to be directed to the Medical Records Department. If you had special tests, such as EKG???s or X-rays, the interpretation of your tests given to you by the Emergency Department Physician is a preliminary report. Some fractures and illnesses fail to show up on preliminary tests. These will be reviewed again and we will call you if there are any new suggestions. If your symptoms continue notify your physician. After you leave, you should follow the instructions provided. What to do next Follow-Up Appointments Follow Up with GREGOR MANZO When Within 2 to 3 days Where: [address] [place] [address]- [facility] (1) Follow Up with KATHRYN KIM When Within 2 to 3 days Where: [address] [place] [address]- [facility] (1) Allergies No Known Medication Allergies Immunizations This Visit No Immunizations Found Medications What How Much When Instructions Next Dose New azithromycin (Azithromycin 5 Day Dose Pack 250 mg oral tablet) See instructions as directed on package labeling Printed Prescription The home medications listed are only as accurate as the information you provided. Please continue taking all of your medications prescribed by your Primary Care Provider unless specifically told to change or discontinue the medication. Please direct any questions regarding your home medications to your Primary Care Provider. Take your medications faithfully. Do NOT skip medication. Do NOT stop taking medications without the direction of a physician. Carry a list of your medications with you at all times, and take this medication list with you to your first follow up visit. Report any side effects. Avoid herbal remedies unless discussed with your physician. As part of your treatment plan, your physician may have prescribed a limited course of a controlled substance. This medication may be given to help people with moderate or severe pain or for other medical conditions, but there are risks involved with treatment. Common side effects may include nausea, constipation, drowsiness, sweating, itching, dry mouth, and rash. More serious side effects may include cognitive and motor impairment, like problems with thinking, concentrating, alertness, and movement (e.g. slowed reflexes), and driving and operating heavy machinery can be dangerous. It is important for you to talk to your physician if you have these side effects or questions. These controlled substances can produce physical dependence and be habit-forming if taken for an extended period of time, which means that the body has gotten used to them and may experience withdrawal symptoms if they are abruptly stopped. Withdrawal symptoms can include runny nose, sweating, goose bumps, diarrhea, abdominal cramping, rapid heartbeat, difficulty sleeping, and nervousness. Please dispose of unused and medications per pharmacy guidance. Test Results Laboratory or Other Results This Visit (last charted value for your 08/17/2019 visit) Hematology 08/17/2019 1:00 PM WBC: 9.4 K/uL -- Normal range between ( 3.9 and 10.0 ) RBC: 3.40 Million/uL -- Normal range between ( 3.93 and 5.22 ) Hct: 35.8 % -- Normal range between ( 34.1 and 44.9 ) Hgb: 11.9 Gram/dL -- Normal range between ( 11.2 and 15.7 ) Platelet Count: 84 K/uL -- Normal range between ( 163 and 369 ) MCH: 35.0 pg -- Normal range between ( 25.6 and 32.2 ) MCHC: 33.2 Gram/dL -- Normal range between ( 32.3 and 36.5 ) MCV: 105.3 fL -- Normal range between ( 79.0 and 94.8 ) Slide Review: No Eos %: 0.0 % -- Normal range between ( 1.0 and 7.0 ) [place] #: 0.11 K/uL -- Normal range between ( 0.24 and 0.82 ) Eos #: 0.00 K/uL -- Normal range between ( 0.04 and 0.54 ) [place] %: 1.2 % -- Normal range between ( 4.7 and 12.5 ) Baso %: 0.1 % -- Normal range between ( 0.0 and 1.0 ) Baso #: 0.01 K/uL -- Normal range between ( 0.01 and 0.08 ) RDW: 15.1 % -- Normal range between ( 11.6 and 14.4 ) Neut %: 96.7 % -- Normal range between ( 34.0 and 71.0 ) Neut #: 9.04 K/uL -- Normal range between ( 1.56 and 6.13 ) Lymph %: 1.8 % -- Normal range between ( 19.3 and 53.0 ) Lymph #: 0.17 K/uL -- Normal range between ( 1.18 and 3.74 ) MPV: 10.4 fL -- Normal range between ( 9.4 and 12.4 ) IG#: 0 x10(3)/uL IG%: 0 % -- Normal range between ( 0 and 1 ) Immature Plt Fraction: 2.8 % -- Normal range between ( 1.0 and 7.0 ) Microbiology 08/17/2019 12:54 PM Influenza A: Not Detected Mycoplasma pneumoniae by PCR: Not Detected Respiratory Syncytial Virus: Not Detected Influenza B: Not Detected Influenza A H3: Not Detected Parainfluenza 3: Not Detected Influenza A H1: Not Detected Rhinovirus/Enterovirus: Not Detected Human Metapneumovirus: Not Detected Parainfluenza 1: Not Detected Parainfluenza 2: Not Detected Adenovirus: Not Detected Parainfluenza 4: Not Detected Coronavirus HKU1: Not Detected Coronavirus NL63: Not Detected Coronavirus OC43: Not Detected Coronavirus 229E: Not Detected Influenza A 2008 H1N1: Not Detected General Chemistry 08/17/2019 1:00 PM Creatinine Level: 0.66 mg/dL -- Normal range between ( 0.55 and 1.02 ) Sodium Level: 136 mmol/L -- Normal range between ( 136 and 146 ) Potassium Level: 3.1 mmol/L -- Normal range between ( 3.5 and 5.1 ) Chloride Level: 106 mmol/L -- Normal range between ( 102 and 112 ) Carbon Dioxide Level: 27 mmol/L -- Normal range between ( 21 and 32 ) Anion Gap: 6 -- Normal range between ( 9 and 20 ) Bilirubin Total: 0.6 mg/dL -- Normal range between ( 0.2 and 1.3 ) A/G Ratio: 1.1 -- Normal range between ( 1.1 and 2.5 ) ALT: 32 Units/Liter -- Normal range between ( 12 and 78 ) AST: 18 Units/Liter -- Normal range between ( 5 and 37 ) Globulin: 3.3 Gram/dL -- Normal range between ( 1.5 and 4.5 ) Alk Phos: 77 Units/Liter -- Normal range between ( 27 and 136 ) Bun/Creatinine: 19.7 -- Normal range between ( 8.0 and 20.0 ) Calcium Level: 8.9 mg/dL -- Normal range between ( 8.5 and 10.1 ) eGFR : >60 mL/min/1.73m2 eGFR NonAfrican: >60 mL/min/1.73m2 Glucose Level: 109 mg/dL -- Normal range between ( 74 and 106 ) Blood Urea Nitrogen: 13 mg/dL -- Normal range between ( 7 and 22 ) Lactic Acid Level: 1.0 mmol/L -- Normal range between ( 0.4 and 2.0 ) Protein Total: 6.9 Gram/dL -- Normal range between ( 6.4 and 8.2 ) Albumin Level: 3.6 Gram/dL -- Normal range between ( 3.4 and 5.0 ) Cardiac Specific Markers 08/17/2019 1:00 PM Troponin I Ultra: <0.015 ng/mL -- Normal range between ( 0.015 and 0.045 ) ProBNP: 56 pg/mL -- Normal range between ( 0 and 125 ) Infectious Disease 08/17/2019 12:54 PM Chlamydophila pneumoniae DNA PCR: Not Detected B. pertussis DNA: Not Detected Molecular Testing 08/17/2019 12:54 PM Group A Strep PCR: Negative Group C/G Strep PCR: Negative Diagnostic Radiology 08/17/2019 1:19 PM CR Chest 1 Vw Portable: CR Chest 1 Vw Portable Education Materials Thrombocytopenia Thrombocytopenia means that you have a low number of platelets in your blood. Platelets are tiny cells in the blood. When you bleed, they clump together at the cut or injury to stop the bleeding. This is called blood clotting. Not having enough platelets can cause bleeding problems. Follow these instructions at home: General instructions ??? Check your skin and inside your mouth for bruises or blood as told by your doctor. ??? Check to see if there is blood in your spit (sputum), pee (urine), and poop (stool). Do this as told by your doctor. ??? Ask your doctor if you can drink alcohol. ??? Take cdbk-awx-zzboqbz and prescription medicines only as told by your doctor. ??? Tell all of your doctors that you have this condition. Be sure to tell your dentist and eye doctor too. Activity ??? Do not do activities that can cause bumps or bruises until your doctor says it is okay. ??? Be careful not to cut yourself: ? When you shave. ? When you use scissors, needles, knives, or other tools. ??? Be careful not to burn yourself: ? When you use an iron. ? When you cook. Contact a doctor if: ??? You have bruises and you do not know why. Get help right away if: ??? You are bleeding anywhere on your body. ??? You have blood in your spit, pee, or poop. This information is not intended to replace advice given to you by your health care provider. Make sure you discuss any questions you have with your health care provider. Document Released: 08/15/2012 Document Revised: 04/29/2017 Document Reviewed: 02/28/2016 [employer] Patient Education ?? 2019 [employer]. Blood Culture Test Why am I having this test? A blood culture test is performed to see if you have an infection in your blood (septicemia). This test may be ordered if you have fever, chills, nausea, or fatigue, and your health care provider suspects septicemia. What is being tested? Your sample will be tested for the presence of bacteria or fungi that can cause septicemia. What kind of sample is taken? At least two blood samples from two different veins are required for this test. The blood samples are usually collected by inserting a needle into a blood vessel. Two samples are taken because: ??? There is a better chance of finding the infection with more than one sample. ??? There is a better chance of ruling out a false-positive result. Despite good cleaning, germs can remain on the skin where the blood is collected. This will result in a false-positive blood culture. How do I prepare for this test? Tell your health care provider if you are taking antibiotic medicine. It is recommended that blood samples be collected before starting this medicine. If blood cultures are performed while you are on an antibiotic, the blood samples should be collected shortly before you take a dose of the medicine. How are the results reported? Your test results will be reported as either positive or negative. For this test, a normal finding is a negative blood culture. A false-positive result can occur. A false positive is incorrect because it indicates that a condition is present when it is not. A false-negative result can occur. A false negative is incorrect because it indicates that a condition is not present when it is. What do the results mean? A positive blood culture test may mean that you have septicemia. Septicemia can indicate a serious infection. Talk with your health care provider about what your results mean. Questions to ask your health care provider Ask your health care provider, or the department that is doing the test: ??? When will my results be ready? How will I get my results? What are my treatment options? What other tests do I need? What are my next steps? Summary ??? A blood culture test is performed to see if you have an infection in your blood (septicemia). ??? At least two blood samples from two different veins are required for this test. This gives a better chance of finding an infection and ruling out a false-positive result. ??? The normal result for this test is a negative blood culture. A positive result may mean that you have septicemia. ??? Talk with your health care provider about what your results mean. This information is not intended to replace advice given to you by your health care provider. Make sure you discuss any questions you have with your health care provider. Document Released: 09/19/2005 Document Revised: 05/07/2018 Document Reviewed: 05/07/2018 [employer] Patient Education ?? 2019 [employer] Upper Respiratory Infection, Adult An upper respiratory infection (URI) affects the nose, throat, and upper air passages. URIs are caused by germs (viruses). The most common type of URI is often called the common cold. Medicines cannot cure URIs, but you can do things at home to relieve your symptoms. URIs usually get better within 7???10 days. Follow these instructions at home: Activity ??? Rest as needed. ??? If you have a fever, stay home from work or school until your fever is gone, or until your doctor says you may return to work or school. ? You should stay home until you cannot spread the infection anymore (you are not contagious). ? Your doctor may have you wear a face mask so you have less risk of spreading the infection. Relieving symptoms ??? Gargle with a salt-water mixture 3???4 times a day or as needed. To make a salt-water mixture, completely dissolve ?1 tsp of salt in 1 cup of warm water. ??? Use a cool-mist humidifier to add moisture to the air. This can help you breathe more easily. Eating and drinking ??? Drink enough fluid to keep your pee (urine) pale yellow. ??? Eat soups and other clear broths. General instructions ??? Take vnmc-oqa-xfnoecy and prescription medicines only as told by your doctor. These include cold medicines, fever reducers, and cough suppressants. ??? Do not use any products that contain nicotine or tobacco. These include cigarettes and e-cigarettes. If you need help quitting, ask your doctor. ??? Avoid being where people are smoking (avoid secondhand smoke). ??? Make sure you get regular shots and get the flu shot every year. ??? Keep all follow-up visits as told by your doctor. This is important. How to avoid spreading infection to others ??? Wash your hands often with soap and water. If you do not have soap and water, use hand brownfield redevelopment site manager. ??? Avoid touching your mouth, face, eyes, or nose. ??? Cough or sneeze into a tissue or your sleeve or elbow. Do not cough or sneeze into your hand or into the air. Contact a doctor if: ??? You are getting worse, not better. ??? You have any of these: ? A fever. ? Chills. ? Brown or red mucus in your nose. ? Yellow or brown fluid (discharge)coming from your nose. ? Pain in your face, especially when you bend forward. ? Swollen neck glands. ? Pain with swallowing. ? White areas in the back of your throat. Get help right away if: ??? You have shortness of breath that gets worse. ??? You have very bad or constant: ? Headache. ? Ear pain. ? Pain in your forehead, behind your eyes, and over your cheekbones (sinus pain). ? Chest pain. ??? You have long-lasting (chronic) lung disease along with any of these: ? Wheezing. ? Long-lasting cough. ? Coughing up blood. ? A change in your usual mucus. ??? You have a stiff neck. ??? You have changes in your: ? Vision. ? Hearing. ? Thinking. ? Mood. Summary ??? An upper respiratory infection (URI) is caused by a germ called a virus. The most common type of URI is often called the common cold. ??? URIs usually get better within 7???10 days. ??? Take bgbu-rds-moqzaqg and prescription medicines only as told by your doctor. This information is not intended to replace advice given to you by your health care provider. Make sure you discuss any questions you have with your health care provider. Document Released: 02/12/2009 Document Revised: 04/19/2018 Document Reviewed: 04/19/2018 [employer] Patient Education ?? 2019 [employer]. Emergency Awareness and Preventative Care STROKE is an EMERGENCY Every Minute Counts Act FAST and Check for these signs: FACE Does the face look uneven? ARM Does one arm drift down? SPEECH Does their speech sound strange? TIME Call at any sign of stroke Stroke Risk Factors Atrial Fibrillation (irregular heartbeat) Diabetes Family history of stroke Heart Disease Heavy alcohol use High Blood Pressure High Cholesterol Physical inactivity and obesity Smoking Cigarette Smoking The facts are clear, cigarette smoking will shorten your life. Smoking can cause many illnesses along the way. As a healthcare provider, we recommend that you stop smoking. Assistance with quitting is available by contacting 3-779-PZKG-NOW. This is a free resource providing counseling, support, and referral. Or you may contact your personal physician. National Suicide Prevention Lifeline: The National Suicide Prevention Lifeline is a national network of local crisis centers that provides free and confidential emotional support to people in suicidal crisis or emotional distress 24 hours a day, 7 days a week. Don't Wait! Stop a Heart Attack Before it Starts What is a heart attack? A heart attack is damage or to a part of the heart from severely decreased or lack of blood flow to the heart. Over time, arteries can become narrow from the buildup of fat and cholesterol, which is called plaque. The plaque can rupture causing a blood clot to form. When the blood clot forms, the artery can become severely narrowed or completely blocked, causing a heart attack. Heart attack is the leading cause of in the [place]. 85% of muscle damage occurs within the first 2 hours. Delay in the recognition of heart attack symptoms increases the chances of . Know the early symptoms of a heart attack: Nausea Feeling of fullness in chest Jaw Pain Pain that travels down one or both arms Fatigue/being tired Anxiety Back Pain Chest pressure, squeezing, or discomfort Shortness of breath Sweating, or a cold sweat Feeling of impending doom There are unusual signs of a heart attack, too! Women, the elderly, and diabetics may present with atypical symptoms: Fainting/dizziness Weakness Confusion Risk Factors for a Heart Attack Some heart disease risk factors, such as age and family history, cannot be changed. Others, like smoking and lack of exercise, can be changed. Smoking High Cholesterol High Blood Pressure Family History Obesity Age Gender (Males are at higher risk) Lack of Exercise Diabetes Diet Stress Excessive Alcohol Intake If you or someone you know is experiencing the signs and symptoms of a heart attack, DON???T DELAY. Call immediately and seek help. If someone collapses, perform CPR! Do not attempt to drive if you are having symptoms of heart attack. Hands-Only CPR Why Hands-Only CPR? Hands-Only CPR has been shown to be as effective as conventional CPR for cardiac arrests that occur outside of a hospital. Survival depends on immediately receiving CPR from someone nearby. How do you perform Hands-Only CPR? There are two easy steps: Call if you see a teen or adult collapse Push hard and fast in the center of the chest at a beat of 100 beats per minute. Save a life! 4 WAYS TO GET AHEAD OF SEPSIS SEPSIS is a MEDICAL EMERGENCY. Time matters! Infections put you and your family at risk for a life-threatening condition called sepsis. Sepsis is the body's extreme response to an infection. It is life-threatening, and without timely treatment, sepsis can rapidly lead to tissue damage, organ failure, and . Sepsis happens when an infection you already have-in your skin, lungs, urinary tract or somewhere else-triggers a chain reaction throughout your body. 1 PREVENT INFECTIONS Take good care of chronic conditions. Talk to your doctor about getting the recommended vaccines. 2 PRACTICE GOOD HYGIENE Wash your hands frequently. Keep cuts or open sores clean and covered until they are healed. 3 KNOW THE SYMPTOMS Confusion or disorientation Shortness of breath High heart rate Fever, shivering, or feeling very cold Extreme pain or discomfort Clammy or sweaty skin 4 ACT FAST Get medical care IMMEDIATELY if you suspect sepsis or if you have an infection that is not getting better or is getting worse. To learn more about sepsis and how to prevent infections, visit www.cdc.gov/sepsis. The examination and treatment you have received in the Emergency Department has been done to provide an appropriate evaluation and stabilizing treatment on an emergency basis only. Given the limited resources, it is not meant to be a substitute for complete medical care. The follow-up doctor you named will receive a copy of your records and all test reports. IT IS IMPORTANT THAT YOU SCHEDULE A FOLLOW-UP APPOINTMENT AND ARE RE-EVALUATED. You should report any new complaints, symptoms, or remaining problems at that time. IT IS IMPOSSIBLE FOR THE EMERGENCY DEPARTMENT TO RECOGNIZE AND TREAT ALL ELEMENTS OF INJURY OR ILLNESS IN A SINGLE VISIT. If you have been referred to a specialist physician, it means that we believe you may have a condition that requires the expertise of a specialist. These physicians work in partnership with the hospital and have agreed to see referred patients in their office for further evaluation. KEEP IN MIND THAT THE SPECIALIST HAS HIS/HER OWN OFFICE POLICIES WHICH MAY REQUIRE PROPER INSURANCE OR PAYMENT UP FRONT BEFORE THE SPECIALIST WILL SEE YOU. It is your responsibility to call the specialist physician to make an appointment. We do not have the ability to refer patients to specialists/physicians that work with specific insurance companies. Please be advised that all financial charges or billing practices are determined by that practice, not the hospital. If your insurance company requires that you see a specialist from their approved list, it is your responsibility to contact your insurance company to make those arrangements. It is also your responsibility to follow any other requirements of your insurance company necessary to obtain coverage for claims submitted. We will bill your insurance; however, you are responsible today for any co-pay amounts. You will receive a separate bill for any services you may have received including: emergency, radiology, or pathology physicians. Patient Name:KYMBERLY POLLACKYLAN Grace I have received this information and was given the opportunity to ask questions. Patient/Network Contract Manager Name: Patient/Network Contract Manager Signature: Relationship to Patient: Clinician/Hospital Network Contract Manager Signature: Please Provide a Telephone Number Where You Can Be Reached: Is it Permissible To Leave a Message? Date: documented in this encounter Plan of Treatment Upcoming Encounters Date Type Department Care Team (Late st Contact Info) Description 06/15/2025 3:00 PM EDT Appointment [address] [place] [address] 08/10/2025 1:15 PM EST Office Visit [place] [facility] - Vicki GUNDERSON [facility] [address] [place] [phone] Gregor Manzo MD [address] [place] [address] documented as of this encounter Visit Diagnoses Not on filedocumented in this encounter Care Teams Tanning Wheel Filler Relationship Specialty Start Date End Date Croley, Gregor, MD [address] [id number] PCP - General Hematology and Oncology 10/13/22 documented as of this encounter
--- OUTSIDE RECORDS SUMMARY | 2025-06-12 13:03 | XMS_ITS | Encounter Summary ---
Author Organization [employer] ([place], [place], [place], [place]) Address [address] [place] [address] Care Team Providers Care Hat Model Name Role Phone Ida Manzo MD Primary Care Provider [phone] Encounter Details Date Type Department Care Team (Late st Contact Info) Description 09/24/2019 Transcribed Document [facility] [place] Medicine [address] [place] [address] ProviderAdy MD [address] [place] [address] Social History Tobacco Use Types Packs/Day Years Used Date Smoking Tobacco: Never Assessed Comments Unknown Sex and Gender Information Value Date Recorded Sex Assigned at Not on file Legal Sex Female 6:39 PM CDT Gender Identity Not on file Sexual Orientation Not on file documented as of this encounter Miscellaneous Notes * Cerner Conversion Note - Historical ProviderMD - 09/24/2019 7:41 AM SWITCHBOARD WIRER Pediatric Growth Entered On: 09/24/2019 7:41 EST Performed On: 09/24/2019 7:41 EST by Salma Barlow Auto Wrecker-Health Unit Coord Height and Weight, Clinical Dosing Weight Source : Standing scale Weight Entry Format : [place] Clinical Dosing Weight : 54.09 kg Weight, Pounds : 119 lb Salma Barlow Auto Wrecker-Health Unit Coord - 09/24/2019 7:41 EST Electronically signed by [facility] Conversion Fitting Room Checker Cerner at 12/24/2022 11:50 PM CDT documented in this encounter Plan of Treatment Upcoming Encounters Date Type Department Care Team (Late st Contact Info) Description 06/15/2025 3:00 PM EDT Appointment [facility] Breast [facility] [place] [address] [place] [address] 08/10/2025 1:15 PM EST Office Visit [facility] - [facility] [address] [facility] [address] [place] [id number] Ida Manzo MD [address] [place] [address] [address] [place] [address] documented as of this encounter Visit Diagnoses Not on filedocumented in this encounter Care Teams Hat Model Relationship Specialty Start Date End Date Ida Manzo MD [address] [place] [address] [address] [place] [address] PCP - General Hematology and Oncology 10/13/22 documented as of this encounter
--- OUTSIDE RECORDS SUMMARY | 2025-06-12 13:03 | XMS_ITS | Encounter Summary ---
Author Organization [employer] ([place], [place], [place], [place]) Address [address] [place] [address] Care Team Providers Care Tensioning Machine Operator Name Role Phone Grgeor Manzo MD Primary Care Provider [phone] Encounter Details Date Type Department Care Team (Late st Contact Info) Description 08/17/2019 Transcribed Document [facility] Radiology [address] [place] [address] Feliz Anne MD [address] [place] [address] Dept. of Emergency Medicine [place] [id number] Social History Tobacco Use Types Packs/Day Years Used Date Smoking Tobacco: Never Assessed Comments Unknown Sex and Gender Information Value Date Recorded Sex Assigned at Not on file Legal Sex Female 6:39 PM CDT Gender Identity Not on file Sexual Orientation Not on file documented as of this encounter Miscellaneous Notes * Cerner Conversion Note - Feliz Anne MD - 08/17/2019 1:48 PM EST Patient: ARAM POLLACK Age: 28 years Sex: Female : 1990 Associated Diagnoses: Fever; Cough; Fever; Breast cancer Author: FELIZ ANNE MD-EMR Basic Information Additional information: Chief Complaint from Nursing Triage Note : Chief Complaint 08/17/2019 12:37 EST Chief Complaint PT statrted getting cold like symptoms 2 days ago and developed 100.5 temp this morning, ocologist told her to come to ED, is supposed to have chemo tomorrow . History of Present Illness The patient presents with fever and cough. The onset was 2 days ago and She is undergoing chemotherapy treatments for breast cancer, she has had a cough, dry, with bronchitis-type chest discomfort with cough, for 2-3 days, also temperature 100.5 this a.m. She called her physician's office and was advised to come to the emergency room. Therapy treatment tomorrow.. The course/duration of symptoms is constant. Associated symptoms: none. Risk factors consist of none. Prior episodes: none. Therapy today: none. Additional history: none. Review of Systems Additional review of systems information: All other systems reviewed and otherwise negative. Health Status Allergies: Allergic Reactions (Selected) No Known Medication Allergies. Medications: (Selected) Inpatient Medications Ordered Lactated Ringers Injection intravenous solution 1,000 mL: 20 mL/Hr, IntraVENous NaCl 0.9% bolus: 1,000 mL, 1,000 mL/Hr, IV Piggyback, 1-Time PACU fentaNYL: 25 mcg, IV Push, Q10Min, PRN: Pain (Severe 7-10) PACU morphine: 2 mg, IV Push, Q10Min, PRN: Pain (Severe 7-10) Percocet 5/325 oral tablet: 1 Tab, Oral, Q30Min, PRN: Pain (Moderate 4-6) Phenergan: 12.5 mg, Rectal, 1-Time, PRN: Nausea Transderm-Scop 1.5 mg transdermal film, extended release: 1 Patch, TransDermal, 1-Time, PRN: Motion Sickness Tylenol: 650 mg, Oral, 1-Time, PRN: Pain (Mild 1-3) lidocaine 1% injectable solution: 0.5 mL, IntraDermal, 1-Time, PRN: Other (See Comment) Documented Medications Documented LORazepam 0.5 mg oral tablet: 1 Tab, Oral, TID, 0 Refill(s) ZyrTEC 10 mg oral tablet: 1 Tab, Oral, Daily, 0 Refill(s) busPIRone 10 mg oral tablet: 1 Tab, Oral, BID, 0 Refill(s) multivitamin: Daily, 0 Refill(s) sertraline 100 mg oral tablet: 1 Tab, Oral, Daily, 0 Refill(s). Past Medical/ Family/ Social History Medical history Reviewed as documented in chart. Surgical history: breast augmentation. breast biopsy. cervical loop procedure. . exploratory lap. hysterectomy.. Family history: No family history items have been selected or recorded.. Social history: Social & Psychosocial Habits Alcohol 05/02/2019 Alcohol Use History, Social Habits No Substance Abuse 05/02/2019 Recreational Drug Use History No Recreational Drug Use Last 12 Months No Tobacco 05/02/2019 Smoking Status Never (less than 100 in l , Reviewed as documented in chart. Problem list: Per nurse's notes. Physical Examination Vital Signs Vital Signs/Vital Measures 08/17/2019 12:37 EST Systolic Blood Pressure 105 mmHg Diastolic Blood Pressure 58 mmHg LOW Temperature Source Oral Temperature Mode Fahrenheit Temperature, Fahrenheit 99.2 Deg F Clinical Temperature, C 37.3 Deg C Peripheral Pulse Rate 106 bpm HI Respiratory Rate 18 Breaths/Min Oxygen Saturation 100 % . Measurements 08/17/2019 12:37 EST Height Source Stated Height Entry Format [place] Height/Length, INDONESIAN (ft) 5 ft Height/Length INDONESIAN 7 Inch CLINICALHEIGHT 170.18 cm [place] Body Weight 61.16 kg Weight Source, ED Standing scale Weight Entry Format [place] Weight Taiwanese lb 128 lb CLINICALWEIGHT 58.18 kg Body Surface Area (BSA) 1.67 m2 Body Mass Index 20.1 kg/m2 . Oxygen Saturation 08/17/2019 12:37 EST Oxygen Saturation 100 % . General: No acute distress. Skin: No rash. Head: Normocephalic. Neck: Supple, trachea midline, no tenderness. Eye: Normal conjunctiva, vision grossly normal. Ears, nose, mouth and throat: Oral mucosa moist. Cardiovascular: Regular rate and rhythm, Normal peripheral perfusion. Respiratory: Lungs are clear to auscultation. Chest wall: No tenderness. Back: Nontender. Musculoskeletal: Normal ROM. Gastrointestinal: Soft, Tenderness: Mild, Guarding: Negative. Genitourinary: No tenderness. Neurological: Alert and oriented to person, place, time, and situation. Lymphatics: No lymphadenopathy. Psychiatric: Cooperative. Medical Decision Making Notes: Chest x-ray shows no pneumonia, respiratory panel is negative for influenza and other tested pathogens, her white blood cell count is 9, I was called by the lab due to abnormal clumping in the blood tubes, however I reviewed the CBC with Dr. Sibley and her platelets being 84 could be rechecked were reviewed and her clinic follow-up appointment. I did contact oncology on-call and spoke with Dr. Sibley, and we agreed that I would laced the patient on azithromycin for coverage for committing acquired pneumonia or atypical organisms., MIPS Bronchitis Antibiotics Avoidance of Antibiotic Treatment in Adults With Acute Bronchitis in patients 18-64 unless documented indication such as (f) Other documented reason= chemotherapy, pneumonia coverage. Impression and Plan Diagnosis Complaint of Fever - Reason For Visit, Emergency medicine, Medical Cough - Discharge, Emergency medicine, Medical Fever - Discharge, Emergency medicine, Medical Breast cancer - Discharge, Emergency medicine, Medical Plan Condition: Stable. Disposition: Discharged Pharmacy: Azithromycin 5 Day Dose Pack 250 mg oral tablet (Prescribe): See Instructions, as directed on package labeling, 6 Tab, 0 Refill(s) Admit/Transfer/Discharge: Discharge (Order): Start: 08/17/2019 15:13 EST, Discharge to: Home. Patient was given the following educational materials: Upper Respiratory Infection, Adult, [id number], Blood Culture Test, Thrombocytopenia, [id number]. Follow up with: KATHRYN KIM Within 2 to 3 days; GREGOR MANZO Within 2 to 3 days. Electronically signed by Pato Jovel Conversion Set Up Mechanic [employer] Machines Cerner at 12/24/2022 11:34 PM CDT documented in this encounter Plan of Treatment Upcoming Encounters Date Type Department Care Team (Late st Contact Info) Description 06/15/2025 3:00 PM EDT Appointment [address] [place] [address] 08/10/2025 1:15 PM EST Office [facility] [address] [place] [address] Gregor Manzo MD [facility] [address] [place] [address] documented as of this encounter Visit Diagnoses Not on filedocumented in this encounter Care Teams Tensioning Machine Operator Relationship Specialty Start Date End Date Gregor Manzo MD [facility] [address] [place] [address] PCP - General Hematology and Oncology 10/13/22 documented as of this encounter
--- OUTSIDE RECORDS SUMMARY | 2025-06-12 13:03 | XMS_ITS | Encounter Summary ---
Author Organization [employer] ([place], [place], [place], [place]) Address [address] [place] [address] Care Team Providers Care Longwall Machine Operator Helper Name Role Phone Ida Manzo MD Primary Care Provider [phone] Encounter Details Date Type Department Care Team (Late st Contact Info) Description 05/02/2019 Transcribed Document [facility] [place] [address] ProviderAdy MD [address] [place] [address] Social History Tobacco Use Types Packs/Day Years Used Date Smoking Tobacco: Never Assessed Comments Unknown Sex and Gender Information Value Date Recorded Sex Assigned at Not on file Legal Sex Female 6:39 PM CDT Gender Identity Not on file Sexual Orientation Not on file documented as of this encounter Miscellaneous Notes * Cerner Conversion Note - Ady ProviderMD - 05/02/2019 12:21 PM CDT [facility] Main OR IntraOp Summary Primary Physician: JULIA RAY MD-SUR Finalized Date/Time: 05/03/19 18:35:21 Pt. Name: MAGGI POLLACKDENISE Edwards D.O.B./Sex: 1990 Female Med Rec #: [id number] Physician: JULIA RAY MD-SUR Financial #: [id number] Pt. Type: O Room/Bed: Admit/Disch: 05/02/19 10:09:00 - Institution: [facility] IntraOp Case Attendance Entry 1 Entry 2 Entry 3 Case Attendee JULIA RAY MD-BRUNO GUERRERO CRNA BOWEN, JON B, MD Role Performed Surgeon/Proceduralist, COOKER LOADER/Nurse Accounting Methods Analyst Anesthesiologist of First Record Time In 05/02/19 12:04:00 05/02/19 12:04:00 05/02/19 12:04:00 Time Out 05/02/19 12:58:00 05/02/19 12:58:00 05/02/19 12:58:00 Procedure Vascular Access Vascular Access Vascular Access Insertion Insertion Insertion Other Attendee Superficial Wound Closed By: Last Modified By: Jose Rafael Oswald, Jose Rafael Friedman, Jose Rafael Friedman, BIANCA 05/02/19 12:58:26 05/02/19 12:58:26 05/02/19 12:58:26 Entry 4 Entry 5 Case Attendee Jose Rafael Oswald, Alexia Pratt, Edger Operator Role Performed Paper Folder, First Scrub, First Time In 05/02/19 12:04:00 05/02/19 12:04:00 Time Out 05/02/19 12:58:00 05/02/19 12:58:00 Procedure Vascular Access Vascular Access Insertion Insertion Other Attendee Superficial Wound Closed By: Last Modified By: Jose Rafael Oswald, Jose Rafael Friedman, BIANCA 05/02/19 12:58:26 05/02/19 12:58:26 [facility] IntraOp Case Attendance Audit 05/02/19 12:58:26 Manager Quality: SHERMAN Modifier: PANTANOS 1 <+> Time In 1 <+> Time Out 1 <*> Procedure Vascular Access Insertion 2 <+> Time In 2 <+> Time Out 2 <*> Procedure Vascular Access Insertion 3 <+> Time In 3 <+> Time Out 3 <*> Procedure Vascular Access Insertion 4 <+> Time In 4 <+> Time Out 4 <*> Procedure Vascular Access Insertion 5 <+> Time In 5 <+> Time Out 5 <*> Procedure Vascular Access Insertion 05/02/19 11:48:59 Manager Quality: SHERMAN Modifier: PANTANOS <+> 1 Procedure 2 <*> Procedure Vascular Access Insertion 3 <*> Procedure Vascular Access Insertion 4 <*> Procedure Vascular Access Insertion 5 <*> Procedure Vascular Access Insertion [facility] IntraOp Case Times Entry 1 Patient In Room Time 05/02/19 12:04:00 Out Room Time 05/02/19 12:58:00 Anesthesia Start Time 05/02/19 12:04:00 Stop Time 05/02/19 12:58:00 Surgery / Procedure Times Start Time 05/02/19 12:21:00 Stop Time 05/02/19 12:54:00 Last Modified By: Jose Rafael Oswald RN 05/02/19 12:58:11 [facility] IntraOp Case Times Audit 05/02/19 12:58:11 Manager Quality: PANTANOS Modifier: PANTANOS <+> 1 Out Room Time <+> 1 Stop Time <+> 1 Stop Time 05/02/19 12:21:56 Manager Quality: PANTANOS Modifier: PANTANOS <+> 1 Start Time [facility] IntraOp Cautery Entry 1 ESU Identification Cautery Type Monopolar ESU ID Number [id number] ID Type Hospital Number Cautery Settings Cut Setting 30 Coag Setting 30 ESU Grounding Pad Ground Pad Type Adult Grounding Pad Site Right thigh Grounding Pad Jose Rafael Oswald RN Applied By Grounding Pad Site Intact Skin Condition Before Cautery Grounding Pad Site Intact Skin Condition After Cautery Last Modified By: Jose Rafael Oswald RN 05/02/19 12:19:46 [facility] IntraOp Cautery Audit 05/02/19 12:19:46 Manager Quality: PANTANOS Modifier: PANTANOS <+> 1 ID Number [facility] IntraOp Communication Entry 1 Communication To Family/Significant other Communication By Jose Rafael Oswald RN Last Modified By: Jose Rafael Oswald RN 05/02/19 11:45:05 [facility] IntraOp Counts Verification Entry 1 Procedure Vascular Access Insertion Count Info Count Type Sponge, Sharps, Miscellaneous Counts Verification Baseline/pre-procedure Sequence Count Results Correct, surgeon notified Counts Performed By Count Performed By Alexia Rodriguez (Scrub) Edger Operator Count Performed By Jose Rafael Oswald RN (RN) Last Modified By: Jose Rafael Oswald RN 05/02/19 11:46:49 [facility] IntraOp Counts Final Entry 1 Procedure Vascular Access Insertion Final Count Info Count Type Sponge, Sharps, Miscellaneous Counts Verification Skin Closure/end of Sequence procedure Count Results Correct, surgeon notified Counts Performed By Count Performed By Alexia Rodriguez (Scrub) Edger Operator Count Performed By Jose Rafael Oswald RN (RN) Last Modified By: Jose Rafael Oswald RN 05/02/19 11:48:44 [facility] IntraOp Departure from OR Entry 1 Integumentary Assessment Transfer/Handoff Transfer to Ambulatory unit, Phase II Handoff Method Bedside/Face to face, Online nursing summary Post-op Transport Stretcher/Gurney Via Patient Transport Jose Rafael Oswald RN Accompanied by Last Modified By: Jose Rafael Oswald RN 05/02/19 11:53:05 [facility] IntraOp Dressing and Packing Entry 1 Type Dressing Location OPSITE Wound Dressing Item Skin Closure Glue Applied By JULIA RAY MD-CHRISTIANO Last Modified By: Jose Rafael Oswald RN 05/02/19 11:48:53 [facility] IntraOp Fire Risk Assessment Entry 1 Fire Info Surgical Site or 1- Yes Incision Above the Xyphoid Open O2 Source 1- Yes (Mask or Cannula) Available Ignition 1- Yes (ESU, Laser, Light Source) Fire Risk 3 Assessment Score Fire Score Fire Risk Yes Assessment Complete Fire Risk Jose Rafael Oswald RN Assessment Verified By Fire Risk 05/02/19 11:45:00 Assessment Verified Date/Time Fire Risk High Risk Protocol Yes Implemented Standard Fire Yes Safety Precautions Followed Last Modified By: Jose Rafael Oswald RN 05/02/19 11:46:24 [facility] IntraOp Fire Risk Assessment Audit 05/02/19 11:46:24 Manager Quality: PANTANOS Modifier: PANTANOS <+> 1 Fire Risk Assessment Complete [facility] IntraOp General Case Arboriculturist 1 Case Information OR OR 01 [facility] Case Level 1 Room Verified Yes Wound Class I - Clean Specialty SN General Anesthesia Type MAC ASA Class 2 Diagnosis Preop Diagnosis right breast ca Postop Same As Preop Yes Postop Diagnosis right breast ca Last Modified By: Jose Rafael Oswald RN 05/02/19 12:44:55 [facility] IntraOp General Case Data Audit 05/02/19 12:44:55 Manager Quality: PANTANOS Modifier: PANTANOS <+> 1 ASA Class 05/02/19 12:40:34 Manager Quality: PANTANOS Modifier: PANTANOS 1 <*> Preop Diagnosis breast ca 1 <*> Postop Diagnosis breast ca [facility] IntraOp Implant Log Entry 1 Type Implant (Synthetic) Implant Log Implant Type Catheter(s) Implant PORT POWER 9.5 Identification [id number] Description Implant Quantity 1 Implant Site left chest Implant [id number] Identification Lot Number Implant Cr Bard:Access Sys Identification Internal Grinder Set Up Operator Name: Implant [id number] Identification Catalog Number Implant Has an Yes Expiration Date Implant Expiration 08/09/20 Date Tissue Implant Last Modified By: Jose Rafael Oswald RN 05/02/19 12:27:53 [facility] IntraOp Intraoperative Assessment Entry 1 Handoff Method Bedside/Face to face, Online nursing summary Valid History / Yes Physical in Chart Preoperative Yes Checklist Reviewed/Evaluated Allergies Reviewed Yes Patient is Latex No Sensitive Level of WDL Consciousness (WDL = Alert, Oriented to Person, Place, and Time) Skin Assessment Yes Verified Present Upon IVs Arrival to OR Last Modified By: Jose Rafael Oswald RN 05/02/19 11:46:18 [facility] IntraOp Intraoperative Equipment Entry 1 Type Monitoring Equipment Intraop Monitoring Electrocardiogram Three lead placement (ECG) Electrode Placement Blood Pressure Non-Invasive BP Device Source Blood Pressure Arm, left upper Location Pulse Oximeter Hand, right Probe Site Antiembolic Devices Scopes Photo/Video Documentation Last Modified By: Jose Rafael Oswald RN 05/02/19 11:47:59 [facility] IntraOp Medication Admin Entry 1 Medication/Irrigant LIDOCAINE 1% WITH EPI 1:100,000 Time Administered 05/02/19 12:19:00 Route of LOCAL Administration Dose Dose 35 Unit of Measure ml Administered By JULIA RAY MD-SUR Procedure Irrigation Last Modified By: Jose Rafael Oswald RN 05/02/19 12:39:33 [facility] IntraOp Medication Admin Audit 05/02/19 12:39:33 Manager Quality: SHERMAN Modifier: SHERMAN <+> 1 Dose [facility] IntraOp Patient Positioning Entry 1 Procedure Vascular Access Insertion Body Position Supine Left Arm Position Tucked and padded at side Right Arm Position Tucked and padded at side Left Leg Position Uncrossed, parallel Right Leg Position Uncrossed, parallel Feet Uncrossed Yes Pressure Points Yes Checked Positioning Devices Head Rest, Safety Strap, Thighs, Roll, Shoulder Device Position UNP'S Positioned By JULIA RAY MD-SUR, BRUNO RENAE CRNA, Jose Rafael Oswald RN Position Verified Positioning Yes Verified by Anesthesia Positioning Yes Verified by Surgeon Last Modified By: Jose Rafael Oswald RN 05/02/19 12:40:00 [facility] IntraOp Patient Positioning Audit 05/02/19 12:40:00 Manager Quality: SHERMAN Modifier: PANTANOS 1 <*> Body Position Supine 1 <*> Right Arm Position Tucked and padded at side 1 <*> Left Arm Position Tucked and padded at side 1 <*> Right Leg Position Uncrossed, parallel 1 <*> Left Leg Position Uncrossed, parallel 1 <*> Feet Uncrossed Yes 1 <*> Pressure Points Checked Yes 1 <*> Procedure Vascular Access Insertion 1 <*> Positioning Devices Head Rest, Safety Strap, Thighs, Roll, Shoulder 1 <*> Device Position UNP'S 1 <*> Positioning Verified by Anesthesia Yes 1 <*> Positioning Verified by Surgeon Yes 1 <+> Positioned By Entry 2 was deleted. Higher numbered entries shifted one position to fill the gap. <-> 2 Body Position Prone <-> 2 Right Arm Position Tucked and padded at side <-> 2 Left Arm Position Tucked and padded at side <-> 2 Right Leg Position Uncrossed, parallel <-> 2 Left Leg Position Uncrossed, parallel <-> 2 Feet Uncrossed Yes <-> 2 Pressure Points Checked Yes <-> 2 Procedure Vascular Access Insertion <-> 2 Positioning Devices Pad, Elbow, Head Rest, Safety Strap, Thighs <-> 2 Positioning Verified by Anesthesia Yes <-> 2 Positioning Verified by Surgeon Yes <-> 2 Positioned By Jose Rafael Oswald RN 05/02/19 11:50:56 Manager Quality: SHERMAN Modifier: RYLANANOS <+> 2 Body Position <+> 2 Right Arm Position <+> 2 Left Arm Position <+> 2 Right Leg Position <+> 2 Left Leg Position <+> 2 Feet Uncrossed <+> 2 Pressure Points Checked <+> 2 Procedure <+> 2 Positioning Devices <+> 2 Positioning Verified by Anesthesia <+> 2 Positioning Verified by Surgeon <+> 2 Positioned By [facility] IntraOp Sign In Entry 1 Patient, Site, Yes Procedure Identified Surgical Consent Yes Confirmed Relevant Surgical Yes Documents Available Surgical Site N/A Marked by person performing procedure Anesthesia Machine Yes Check Completed Medication Checks Yes Completed Allergies No Airway Difficult Yes Airway/Aspiration Risk Difficult Yes Airway/Aspiration Intervention Equipment Available Blood Loss Risk No Blood Loss Yes Intervention Equipment Prepared and Ready Blood Identifiers Not applicable Verified Per Policy Hypothermia Risk Yes Warming Measures Yes Taken Last Modified By: Jose Rafael Oswald RN 05/02/19 11:51:11 [facility] IntraOp Sign Out Entry 1 RN Confirmation Surgical Yes Procedure(s) Identified Instrument, Sponge Yes and Sharps Counts Correct/Documented Equipment Problems N/A Documented Specimen Labeled N/A Correctly Urinary Catheter N/A Documented in IView Lugo Patient Yes Recovery Concerns Reviewed with Anesthesia Provider, Surgeon and RN Lugo Patient Yes Management Concerns Reviewed with Anesthesia Provider, Surgeon and RN Safety Checklist Yes Elements Complete? RN Sign Out Jose Rafael Oswald RN Signature RN Sign Out 05/02/19 12:58:00 Signature Date/Time Plan of Care Outcome - Fire Risk OUTCOME STATEMENT: Goal met Patient is free from injury related to surgical fire Plan of Care Outcome - Pt Positioning OUTCOME STATEMENT: Goal met Absence of signs and symptoms of positioning injury. Plan of Care Outcome - Skin Prep OUTCOME STATEMENT: Goal met Intraoperative care is consistent with measures to prevent infection Plan of Care Outcome - Xray/Images OUTCOME STATEMENT: Goal met Absence of observable signs or symptoms of radiation injury Plan of Care Outcome - Counts OUTCOME STATEMENT: Goal met Absence of signs and symptoms of injury related to extraneous objects Last Modified By: Jose Rafael Oswald RN 05/02/19 12:58:23 [facility] IntraOp Sign Out Audit 05/02/19 12:58:23 Manager Quality: SHERMAN Modifier: PANTANOS <+> 1 RN Sign Out Signature Date/Time [facility] IntraOp Skin Prep Entry 1 Procedure Vascular Access Insertion Prescribed N/A Pre-Surgical Prep Completed Prep Area CHIN THRU CHEST INCLUDE BILATERAL SHOULDERS Intraop Prep Integumentary WDL Assessment WDL Prep Agents Chloraprep Prep by JULIA RAY MD-CHRISTIANO Hair Removal Last Modified By: Jose Rafael Oswald RN 05/02/19 12:43:17 [facility] IntraOp Skin Prep Audit 05/02/19 12:43:17 Manager Quality: ADAS Modifier: PANTANOS 1 <*> Procedure Vascular Access Insertion 1 <+> Prep by 05/02/19 12:43:03 Manager Quality: SHERMAN Modifier: PANTANOS 1 <*> Procedure Vascular Access Insertion 1 <+> Integumentary Assessment WDL [facility] IntraOp Surgical Procedures Entry 1 Procedure Vascular Access Insertion Additional (LT SUBCLAVIAN POWER Procedure PORT PLACEMENT) Description Primary Procedure Yes Primary Surgeon JULIA RAY MD-CHRISTIANO Start 05/02/19 12:21:00 Stop 05/02/19 12:54:00 Anesthesia Type MAC Specialty SN General Wound Class I - Clean Last Modified By: Jose Rafael Oswald RN 05/02/19 12:58:16 [facility] IntraOp Surgical Procedures Audit 05/02/19 12:58:16 Manager Quality: SHERMAN Modifier: PANTANOS <+> 1 Stop 05/02/19 12:40:03 Manager Quality: SHERMAN Modifier: RYLANANOS <+> 1 Start [facility] IntraOp Temp Regulation Devices Entry 1 Temp Regulation Temperature Warm blankets Regulation Device Temperature Full body Regulation Site Last Modified By: Jose Rafael Oswald RN 05/02/19 11:48:05 [facility] IntraOP Time Out Entry 1 Procedure to be Vascular Access Performed Insertion Time Out Time Out Pause Time 05/02/19 12:21:00 All activity Yes suspended (unless life threatening emergency) Team Verbally Correct patient Confirms Information identity, Correct side and site are marked, Consent form is present and accurate, Agreement on the procedure to be done, Correct patient position, Relevant images/results properly labeled/appropriately displayed, Confirm antibiotics have been administered, Confirm the skin prep has dried, Confirm prosthesis/implant/devic e is present, Performed in location of procedure after prepped/draped Antibiotic Yes Prophylaxis Administered Or In Progress Within the Last 60 Minutes Beta Coco N/A Administered Venous N/A Thromboembolism Prophylaxis Required Anticipated Critical Events Surgeon None expected, Critical or unexpected steps, Anticipated blood loss, Special equipment need Anesthesia Provider Patient specific concerns, None expected Nursing Assures Sterility of instruments, Equipment concerns or issues, Implant Availability Essential Imaging Yes Labeled and Displayed Last Modified By: Jose Rafael Oswald RN 05/02/19 12:22:46 [facility] IntraOP Time Out Audit 05/02/19 12:22:46 Manager Quality: SHERMAN Modifier: SHERMAN 1 <+> Time Out Pause Time 1 <*> Procedure to be Performed Vascular Access Insertion [facility] IntraOp X-Ray and Images Entry 1 X-Ray/Imaging Type Fluoroscopy Fluoroscopy Type C-Arm Site chest/abdomen Investment Underwriter Name PB KAPLAN Protective Devices Yes Used Exposure Time 3min Last Modified By: Jose Rafael Oswald RN 05/02/19 12:44:43 Case Comments <None> Finalized By: GINA KOROMA Document Signatures Signed By: Jose Rafael Oswald RN 05/02/19 12:58 KOROMAGINA 05/03/19 18:34 KOROMAGINA 05/03/19 18:35 Unfinalized History Date/Time Username Reason for Unfinalizing Freetext Reason for Unfinalizing 05/03/19 18:34 WATTSDR Correct Documentation 05/03/19 18:34 WATTSDR Correct Billing Electronically signed by Med, [facility] Conversion Airport Security Screener Cerner at 12/24/2022 11:20 PM CDT documented in this encounter Plan of Treatment Upcoming Encounters Date Type Department Care Team (Late st Contact Info) Description 06/15/2025 3:00 PM EDT Appointment [address] [place] [address] 08/10/2025 1:15 PM EST Office Visit [facility] [address] [facility] [address] [place] [address] Ida Manzo MD [address] [place] [address] [address] [place] [address] documented as of this encounter Visit Diagnoses Not on filedocumented in this encounter Care Teams Longwall Machine Operator Helper Relationship Specialty Start Date End Date Ida Manzo MD [address] [place] [address] [address] [place] [id number] PCP - General Hematology and Oncology 10/13/22 documented as of this encounter
--- OUTSIDE RECORDS SUMMARY | 2025-06-12 13:03 | XMS_ITS | Encounter Summary ---
Author Organization [employer] ([place], [place], [place], [place]) Address [address] [place] [address] Care Team Providers Care Broadcast Operations Director Name Role Phone Ida Manzo MD Primary Care Provider [phone] Encounter Details Date Type Department Care Team (Late st Contact Info) Description 09/24/2019 Transcribed Document [facility] [place] [address] Ady Casillas MD [address] [place], [place] [id number] Social History Tobacco Use Types Packs/Day Years Used Date Smoking Tobacco: Never Assessed Comments Unknown Sex and Gender Information Value Date Recorded Sex Assigned at Not on file Legal Sex Female 6:39 PM CDT Gender Identity Not on file Sexual Orientation Not on file documented as of this encounter Miscellaneous Notes * Cerner Conversion Note - Ady Casillas MD - 09/24/2019 12:59 PM [employer]SH [employer] Patient Education Materials Follows: General Anesthesia, Adult, Care After This sheet gives you information about how to care for yourself after your procedure. Your health care provider may also give you more specific instructions. If you have problems or questions, contact your health care provider. What can I expect after the procedure? After the procedure, the following side effects are common: ??? Pain or discomfort at the IV site. ??? Nausea. ??? Vomiting. ??? Sore throat. ??? Trouble concentrating. ??? Feeling cold or chills. ??? Weak or tired. ??? Sleepiness and fatigue. ??? Soreness and body aches. These side effects can affect parts of the body that were not involved in surgery. Follow these instructions at home: For at least 24 hours after the procedure: ??? Have a responsible adult stay with you. It is important to have someone help care for you until you are awake and alert. ??? Rest as needed. ??? Do not: ? Participate in activities in which you could fall or become injured. ? Drive. ? Use heavy machinery. ? Drink alcohol. ? Take sleeping pills or medicines that cause drowsiness. ? Make important decisions or sign legal documents. ? Take care of children on your own. Eating and drinking ??? Follow any instructions from your health care provider about eating or drinking restrictions. ??? When you feel hungry, start by eating small amounts of foods that are soft and easy to digest (bland), such as toast. Gradually return to your regular diet. ??? Drink enough fluid to keep your urine pale yellow. ??? If you vomit, rehydrate by drinking water, juice, or clear broth. General instructions ??? If you have sleep apnea, surgery and certain medicines can increase your risk for breathing problems. Follow instructions from your health care provider about wearing your sleep device: ? Anytime you are sleeping, including during daytime naps. ? While taking prescription pain medicines, sleeping medicines, or medicines that make you drowsy. ??? Return to your normal activities as told by your health care provider. Ask your health care provider what activities are safe for you. ??? Take shgc-ufe-xhubhre and prescription medicines only as told by your health care provider. ??? If you smoke, do not smoke without supervision. ??? Keep all follow-up visits as told by your health care provider. This is important. Contact a health care provider if: ??? You have nausea or vomiting that does not get better with medicine. ??? You cannot eat or drink without vomiting. ??? You have pain that does not get better with medicine. ??? You are unable to pass urine. ??? You develop a skin rash. ??? You have a fever. ??? You have redness around your IV site that gets worse. Get help right away if: ??? You have difficulty breathing. ??? You have chest pain. ??? You have blood in your urine or stool, or you vomit blood. Summary ??? After the procedure, it is common to have a sore throat or nausea. It is also common to feel tired. ??? Have a responsible adult stay with you for the first 24 hours after general anesthesia. It is important to have someone help care for you until you are awake and alert. ??? When you feel hungry, start by eating small amounts of foods that are soft and easy to digest (bland), such as toast. Gradually return to your regular diet. ??? Drink enough fluid to keep your urine pale yellow. ??? Return to your normal activities as told by your health care provider. Ask your health care provider what activities are safe for you. This information is not intended to replace advice given to you by your health care provider. Make sure you discuss any questions you have with your health care provider. Document Released: 12/03/2001 Document Revised: 04/12/2018 Document Reviewed: 04/12/2018 [employer] Interactive Patient Education ? 2019 [employer]. Lumpectomy, Care After This sheet gives you information about how to care for yourself after your procedure. Your health care provider may also give you more specific instructions. If you have problems or questions, contact your health care provider. What can I expect after the procedure? After the procedure, it is common to have: ??? Breast swelling. ??? Breast tenderness. ??? Stiffness in your arm or shoulder. ??? A change in the shape and feel of your breast. ??? Scar tissue that feels hard to the touch in the area where the lump was removed. Follow these instructions at home: Bathing ??? Take sponge baths until your health care provider says that you can start showering or bathing. ??? Do not take baths, swim, or use a hot tub until your health care provider approves. Incision care ??? Follow instructions from your health care provider about how to take care of your incision. Make sure you: ? Wash your hands with soap and water before you change your bandage (dressing). If soap and water are not available, use hand grooving machine operator. ? Change your dressing as told by your health care provider. ? Leave stitches (sutures), skin glue, or adhesive strips in place. These skin closures may need to stay in place for 2 weeks or longer. If adhesive strip edges start to loosen and curl up, you may trim the loose edges. Do not remove adhesive strips completely unless your health care provider tells you to do that. ??? Check your incision area every day for signs of infection. Check for: ? More redness, swelling, or pain. ? More fluid or blood. ? Warmth. ? Pus or a bad smell. ??? Keep your dressing clean and dry. ??? If you were sent home with a surgical drain in place, follow instructions from your health care provider about emptying it. Activity ??? Return to your normal activities as told by your health care provider. Ask your health care provider what activities are safe for you. ??? Avoid activities that require a lot of energy (are strenuous). ??? Be careful to avoid any activities that could cause an injury to your arm on the side of your surgery. ??? Do not lift anything that is heavier than 10 lb (4.5 kg). Avoid lifting with the arm that is on the side of your surgery. ??? Do not carry heavy objects on your shoulder. ??? After your drain is removed, you should perform exercises to keep your arm from getting stiff and swollen. Talk with your health care provider about which exercises are safe for you. General instructions ??? Take tbgx-pmj-cxyeefd and prescription medicines only as told by your health care provider. ??? You may eat what you usually do. ??? Wear a supportive bra as told by your health care provider. ??? Raise (elevate) your arm above the level of your heart while you are sitting or lying down. ??? Do not wear tight jewelry on your arm, wrist, or fingers on the side of your surgery. Follow-up ??? Keep all follow-up visits as told by your health care provider. This is important. ??? You may need to be screened for extra fluid around the lymph nodes (lymphedema). Follow instructions from your health care provider about how often you should be checked. ??? If you had any lymph nodes removed during your procedure, be sure to tell all of your health care providers. This is important information to share before you are involved in certain procedures, such as giving blood or having your blood pressure taken. Contact a health care provider if: ??? You develop a rash. ??? You have a fever. ??? Your pain medicine is not working. ??? Your swelling, weakness, or numbness in your arm has not improved after a few weeks. ??? You have new swelling in your breast or arm. ??? You have more redness, swelling, or pain in your incision area. ??? You have more fluid or blood coming from your incision. ??? Your incision feels warm to the touch. ??? You have pus or a bad smell coming from your incision. Get help right away if: ??? You have very bad pain in your breast or arm. ??? You have chest pain. ??? You have difficulty breathing. This information is not intended to replace advice given to you by your health care provider. Make sure you discuss any questions you have with your health care provider. Document Released: 09/12/2007 Document Revised: 05/09/2017 Document Reviewed: 05/09/2017 [employer] Interactive Patient Education ? 2019 [employer]. documented in this encounter Plan of Treatment Upcoming Encounters Date Type Department Care Team (Late st Contact Info) Description 06/15/2025 3:00 PM EDT Appointment [facility] [address] [facility] [address] [place] [address] 08/10/2025 1:15 PM EST Office Visit [facility] [place] [address] [facility] [address] [place] [phone] Ida Manzo MD [address] [place] [address] [address] [place] [address] documented as of this encounter Visit Diagnoses Not on filedocumented in this encounter Care Teams Broadcast Operations Director Relationship Specialty Start Date End Date Ida Manzo MD [address] [facility] [address] [place] [address] PCP - General Hematology and Oncology 10/13/22 documented as of this encounter
--- OUTSIDE RECORDS SUMMARY | 2025-06-12 13:03 | XMS_ITS | Encounter Summary ---
Author Organization [employer] ([place], [place], [place], [place]) Address [address] [place] [address] Care Team Providers Care Photonics Engineering Technician Name Role Phone Ida Manzo MD Primary Care Provider [phone] Encounter Details Date Type Department Care Team (Late st Contact Info) Description 09/24/2019 Transcribed Document [facility] [place] Family Medicine [address] [place] [address] ProviderAdy MD [address] [place] [address] Social History Tobacco Use Types Packs/Day Years Used Date Smoking Tobacco: Never Assessed Comments Unknown Sex and Gender Information Value Date Recorded Sex Assigned at Not on file Legal Sex Female 6:39 PM CDT Gender Identity Not on file Sexual Orientation Not on file documented as of this encounter Miscellaneous Notes * Cerner Conversion Note - Ady ProviderMD - 09/24/2019 1:28 PM SHOP LEAD [address] [address] ARAM POLLACK :1990 Visit Time:09/24/2019 What to do next Your Diagnosis Malignant neoplasm of upper-inner quadrant of right female breast, Malignant neoplasm of upper-inner quadrant of right female breast Instructions From Your Care Team May shower in 24 hours, no tub baths. Wear supportive bra without wires until follow-up appointment. Usual diet and activity as tolerated. Percocet 5/325 mg 1-2 tablets every 4 hours as needed for pain, next dose due @ 4:45 pm today 09/24/19, take with food. Follow-Up Appointments Follow Up with JULIA ESCALANTE MD-CHRISTIANO When 10/02/2019 11:45 AM EST Where: Medications What How Much When Instructions Next Dose biotin (Hair, Skin & Nails) 1 Tablet(s) Oral Every Day busPIRone (busPIRone 10 mg oral tablet) 1 Tablet(s) Oral Two Times A Day cetirizine (ZyrTEC 10 mg oral tablet) 1 Tablet(s) Oral Every Day LORazepam (LORazepam 0.5 mg oral tablet) 1 Tablet(s) Oral Three Times A Day prn multivitamin Every Day venlafaxine (Effexor XR 37.5 mg oral capsule, extended release) 1 Capsule(s) Oral Every Day Take your medications faithfully. Do NOT skip [...] of unused and medications per pharmacy guidance. Education Materials General Anesthesia, Adult, Care After This sheet [...] activities are safe for you. ??? Take tmle-bdr-oywznaq and prescription medicines only as told by [...] 12/03/2001 Document Revised: 04/12/2018 Document Reviewed: 04/12/2018 [employer] Interactive Patient Education ?? 2019 [employer] Lumpectomy, Care After This sheet gives you [...] and water are not available, use hand head golf professional. ? Change your dressing as told by [...] safe for you. General instructions ??? Take pjjz-tnp-itenyoo and prescription medicines only as told by [...] 09/12/2007 Document Revised: 05/09/2017 Document Reviewed: 05/09/2017 [employer] Interactive Patient Education ?? 2019 [employer]. acetaminophen and oxycodone (a SEET a MIN oh fen and OX i KOE done) Endocet 10/325, Endocet 2.5/325, Endocet 5/325, Endocet 7.5/325, Nalocet, Percocet 10/325, Percocet 2.5/325, Percocet 5/325, Percocet 7.5/325, Primalev, Primlev, Roxicet, Xartemis XR What is the most important information I should know about acetaminophen and oxycodone? MISUSE OF OPIOID MEDICINE CAN CAUSE ADDICTION, OVERDOSE, OR . Keep the medication in a place where others cannot get to it. An overdose of acetaminophen can damage your liver or cause . Call your doctor at once if you have pain in your upper stomach, loss of appetite, dark urine, or jaundice (yellowing of your skin or eyes). Taking opioid medicine during may cause life-threatening withdrawal symptoms in the . Fatal side effects can occur if you use opioid medicine with alcohol, or with other drugs that cause drowsiness or slow your breathing. Stop taking this medicine and call your doctor right away if you have skin redness or a rash that spreads and causes blistering and peeling. What is acetaminophen and oxycodone? Oxycodone is an opioid pain medication, sometimes called a narcotic. Acetaminophen is a less potent pain reliever that increases the effects of oxycodone. Acetaminophen and oxycodone is a combination medicine used to relieve moderate to severe pain. Acetaminophen and oxycodone may also be used for purposes not listed in this medication guide. What should I discuss with my healthcare provider before taking acetaminophen and oxycodone? You should not use this medicine if you are allergic to acetaminophen or oxycodone, or if you have: ?? severe asthma or breathing problems; or ?? a blockage in your stomach or intestines. Tell your doctor if you have ever had: ?? liver disease; ?? a drug or alcohol addiction; ?? kidney disease; ?? a head injury or seizures; ?? urination problems; or ?? problems with your thyroid, pancreas, or gallbladder. If you use opioid medicine while you are , your baby could become dependent on the drug. This can cause life-threatening withdrawal symptoms in the baby after it is born. Babies born dependent on opioids may need medical treatment for several weeks. Do not breast-feed. This medicine can pass into breast milk and cause drowsiness, breathing problems, or in a nursing baby. How should I take acetaminophen and oxycodone? Follow all directions on your prescription label. Never take this medicine in larger amounts, or for longer than prescribed. An overdose can damage your liver or cause . Tell your doctor if the medicine seems to stop working as well in relieving your pain. Never share this medicine with another person, especially someone with a history of drug abuse or addiction. MISUSE CAN CAUSE ADDICTION, OVERDOSE, OR . Keep the medicine in a place where others cannot get to it. Selling or giving away acetaminophen and oxycodone is against the law. Measure liquid medicine carefully. Use the dosing syringe provided, or use a medicine dose-measuring device (not a kitchen spoon). If you need surgery or medical tests, tell the doctor ahead of time that you are using this medicine. You should not stop using this medicine suddenly. Follow your doctor's instructions about tapering your dose. Store at room temperature away from moisture and heat. Keep track of your medicine. You should be aware if anyone is using it improperly or without a prescription. Do not keep leftover opioid medication. Just one dose can cause in someone using this medicine accidentally or improperly. Ask your pharmacist where to locate a drug take-back disposal program. If there is no take-back program, flush the unused medicine down the toilet. What happens if I miss a dose? Since this medicine is used for pain, you are not likely to miss a dose. Skip any missed dose if it is almost time for your next dose. Do not use two doses at one time. What happens if I overdose? Seek emergency medical attention or call the Poison Help line at . An overdose of acetaminophen and oxycodone can be fatal. The first signs of an acetaminophen overdose include loss of appetite, nausea, vomiting, stomach pain, sweating, and confusion or weakness. Later symptoms may include pain in your upper stomach, dark urine, and yellowing of your skin or the whites of your eyes. Overdose can also cause severe muscle weakness, pinpoint pupils, very slow breathing, extreme drowsiness, or coma. What should I avoid while taking acetaminophen and oxycodone? Avoid driving or operating machinery until you know how this medicine will affect you. Dizziness or drowsiness can cause falls, accidents, or severe injuries. Do not drink alcohol. Dangerous side effects or could occur. Ask a doctor or pharmacist before using any other medicine that may contain acetaminophen (sometimes abbreviated as APAP). Taking certain medications together can lead to a fatal overdose. What are the possible side effects of acetaminophen and oxycodone? Get emergency medical help if you have signs of an allergic reaction: hives; difficulty breathing; swelling of your face, lips, tongue, or throat. Opioid medicine can slow or stop your breathing, and may occur. A person caring for you should seek emergency medical attention if you have slow breathing with long pauses, blue colored lips, or if you are hard to wake up. In rare cases, acetaminophen may cause a severe skin reaction that can be fatal. This could occur even if you have taken acetaminophen in the past and had no reaction. Stop taking this medicine and call your doctor right away if you have skin redness or a rash that spreads and causes blistering and peeling. Call your doctor at once if you have: ?? noisy breathing, sighing, shallow breathing; ?? a light-headed feeling, like you might pass out; ?? weakness, tiredness, fever, unusual bruising or bleeding; ?? confusion, unusual thoughts or behavior; ?? problems with urination; ?? liver problems--nausea, upper stomach pain, tiredness, loss of appetite, dark urine, sloan-colored stools, jaundice (yellowing of the skin or eyes); or ?? low cortisol levels-- nausea, vomiting, loss of appetite, dizziness, worsening tiredness or weakness. Seek medical attention right away if you have symptoms of serotonin syndrome, such as: agitation, hallucinations, fever, sweating, shivering, fast heart rate, muscle stiffness, twitching, loss of coordination, nausea, vomiting, or diarrhea. Serious side effects may be more likely in older adults and those who are overweight, malnourished, or debilitated. Long-term use of opioid medication may affect fertility (ability to have children) in men or women. It is not known whether opioid effects on fertility are permanent. Common side effects include: ?? dizziness, drowsiness, feeling tired; ?? feelings of extreme happiness or sadness; ?? nausea, vomiting, stomach pain; ?? constipation; or ?? headache. This is not a complete list of side effects and others may occur. Call your doctor for medical advice about side effects. You may report side effects to FDA at 0-125-HBH-2717. What other drugs will affect acetaminophen and oxycodone? You may have breathing problems or withdrawal symptoms if you start or stop taking certain other medicines. Tell your doctor if you also use an antibiotic, antifungal medication, heart or blood pressure medication, seizure medication, or medicine to treat HIV or hepatitis C. Opioid medication can interact with many other drugs and cause dangerous side effects or . Be sure your doctor knows if you also use: ?? cold or allergy medicines, bronchodilator asthma/COPD medication, or a diuretic ('water pill'); ?? medicines for motion sickness, irritable bowel syndrome, or overactive bladder; ?? other narcotic medications--opioid pain medicine or prescription cough medicine; ?? a sedative like Valium--diazepam, alprazolam, lorazepam, Xanax, Klonopin, Versed, and others; ?? drugs that make you sleepy or slow your breathing--a sleeping pill, muscle relaxer, medicine to treat mood disorders or mental illness; ?? drugs that affect serotonin levels in your body--a stimulant, or medicine for depression, Parkinson's disease, migraine headaches, serious infections, or nausea and vomiting. This list is not complete. Other drugs may affect acetaminophen and oxycodone, including prescription and byxm-iok-bnsphgz medicines, vitamins, and herbal products. Not all possible interactions are listed here. Where can I get more information? Your doctor or pharmacist can provide more information about acetaminophen and oxycodone. Remember, keep this and all other medicines out of the reach of children, never share your medicines with others, and use this medication only for the indication prescribed. Every effort has been made to ensure that the information provided by [employer] ('[employer]') is accurate, up-to-date, and complete, but no guarantee is made to that effect. Drug information contained herein may be time sensitive. [employer] information has been compiled for use by healthcare practitioners and consumers in the [place] and therefore [employer] does not warrant that uses outside of the [place] are appropriate, unless specifically indicated otherwise. [employer]'s drug information does not endorse drugs, diagnose patients or recommend therapy. [employer] drug information is an informational resource designed to assist licensed healthcare practitioners in caring for their patients and/or to serve consumers viewing this service as a supplement to, and not a substitute for, the expertise, skill, knowledge and judgment of healthcare practitioners. The absence of a warning for a given drug or drug combination in no way should be construed to indicate that the drug or drug combination is safe, effective or appropriate for any given patient. [employer] does not assume any responsibility for any aspect of healthcare administered with the aid of information [employer] provides. The information contained herein is not intended to cover all possible uses, directions, precautions, warnings, drug interactions, allergic reactions, or adverse effects. If you have questions about the drugs you are taking, check with your doctor, nurse or pharmacist. Copyright 9448-8568 [employer] Version: 18.02. Revision Date: 08/07/2018. Emergency Awareness and Preventative Care STROKE is [...] Assistance with quitting is available by contacting 3-971-EIFE-NOW. This is a free resource providing counseling, support, and referral. Or you may contact your personal physician. [employer] Suicide Prevention Lifeline: The National Suicide Prevention [...] and how to prevent infections, visit www.cdc.gov/sepsis. Test Results Laboratory or Other Results This Visit (last charted value for your 09/24/2019 visit) Mammography 09/24/2019 11:47 AM MY Surgical Specimen: MY Surgical Specimen 09/24/2019 9:24 AM MY Digital Dx Unilat RT: MY Digital Dx Unilat RT 09/24/2019 8:50 AM MY US GD Ndl Loc RT: MY US GD Ndl Loc RT Nuclear Medicine 09/24/2019 10:10 AM NM Clyde Node Inj: NM Clyde Node Inj Patient Name:ARAM POLLACK I have received this information and was given the opportunity to ask questions. Patient/Integration Solution Architect Name: Patient/Integration Solution Architect Signature: Relationship to Patient: Clinician/Hospital Integration Solution Architect Signature: Date: documented in this encounter Plan of Treatment Upcoming Encounters Date Type Department Care Team (Late st Contact Info) Description 06/15/2025 3:00 PM EDT Appointment [facility] [address] [place] [address] 08/10/2025 1:15 PM EST Office Visit [facility] - [address] [facility] [address] [place] [address] Ida Manzo MD [address] [place] [address] documented as of this encounter Visit Diagnoses Not on filedocumented in this encounter Care Teams Photonics Engineering Technician Relationship Specialty Start Date End Date Ida Manzo MD [address] [facility] [address] [place] [address] PCP - General Hematology and Oncology 10/13/22 documented as of this encounter
--- OUTSIDE RECORDS SUMMARY | 2025-06-12 13:03 | XMS_ITS | Encounter Summary ---
Author Organization [employer] ([place], [place], [place], [place]) Address [address] [place] [address] Care Team Providers Care Asbestos Removal Worker Name Role Phone Ida Manzo MD Primary Care Provider [phone] Encounter Details Date Type Department Care Team (Late st Contact Info) Description 09/24/2019 Transcribed Document [facility] [place] [facility] [place] [address] ProviderAdy MD [address] [place], [place] [id number] Social History Tobacco Use Types Packs/Day Years Used Date Smoking Tobacco: Never Assessed Comments Unknown Sex and Gender Information Value Date Recorded Sex Assigned at Not on file Legal Sex Female 6:39 PM CDT Gender Identity Not on file Sexual Orientation Not on file documented as of this encounter Miscellaneous Notes * Cerner Conversion Note - Ady ProviderMD - 09/24/2019 9:57 AM AUTOMOBILE SALES CONSULTANT Procedural Documentation Entered On: 09/24/2019 10:09 EST Performed On: 09/24/2019 9:57 EST by Nighat Francis RN Procedure Documentation Procedure to be Performed : right breast sentinel node biopsy Time Out Pause Time : 09/24/2019 9:57 EST All Activity Suspended : Yes Team Verbally Confirms Information : Correct patient identity, Correct side and site are marked, Consent form is present and accurate, Agreement on the procedure to be done, Correct patient position Procedure Case Attendee : AVERY BARLOW PA-C Procedure Case Attendee Role : Physician cook's assistant Procedure Case Attendee Role 2 : senior controls technician Procedure Case Attendee 2 : KYLER VIDAL Procedure Case Attendee Role 3 : advertising specialist Case Attendee 3 : Nighat Francis, RN Nighat Francis, RN - 09/24/2019 10:08 EST Electronically signed by Med [facility] Conversion Gore Inserter Cerner at 12/24/2022 11:51 PM CDT documented in this encounter Plan of Treatment Upcoming Encounters Date Type Department Care Team (Late st Contact Info) Description 06/15/2025 3:00 PM EDT Appointment [facility] Breast [address] [place] [address] 08/10/2025 1:15 PM EST Office Visit [facility] - Nept[facility] [address] [place] [address] Ida Manzo MD [address] [place] [address] [address] [place] [address] documented as of this encounter Visit Diagnoses Not on filedocumented in this encounter Care Teams Asbestos Removal Worker Relationship Specialty Start Date End Date I[place] Manzo MD [facility] [address] [place] [address] PCP - General Hematology and Oncology 10/13/22 documented as of this encounter
--- OUTSIDE RECORDS SUMMARY | 2025-06-12 13:03 | XMS_ITS | Encounter Summary ---
Author Organization [employer] ([place], [place], [place], [place]) Address [address] [place] [address] Care Team Providers Care Mountain Or Glacier Guide Name Role Phone Ida Manzo MD Primary Care Provider [phone] Encounter Details Date Type Department Care Team (Late st Contact Info) Description 05/02/2019 Transcribed Document [facility] [place] Family [place] [facility] [place] [address] ProviderAdy MD [address] [place] [address] Social History Tobacco Use Types Packs/Day Years Used Date Smoking Tobacco: Never Assessed Comments Unknown Sex and Gender Information Value Date Recorded Sex Assigned at Not on file Legal Sex Female 6:39 PM CDT Gender Identity Not on file Sexual Orientation Not on file documented as of this encounter Miscellaneous Notes * Cerner Conversion Note - Ady ProviderMD - 05/02/2019 12:21 PM CDT [facility] Main OR Preop Summary Primary Physician: JULIA RAY MD-SUR Finalized Date/Time: 05/02/19 14:26:54 Pt. Name: MAGGI POLLACKDENISE Edwards D.O.B./Sex: 1990 Female Med Rec #: [id number] Physician: JULIA RAY MD-SUR Financial #: [id number] Pt. Type: O Room/Bed: Admit/Disch: 05/02/19 10:09:00 - Institution: [facility] PreOp Case Times Entry 1 In Preop 05/02/19 10:18:00 Ready for Holding n/a Room Patient Ready for 05/02/19 11:08:00 Surgery Patient Out of Preop 05/02/19 12:01:00 Patient Out of n/a Holding Room Last Modified By: JAC LERNER RN 05/02/19 14:26:51 [facility] PreOp Case Times Audit 05/02/19 14:26:51 Mail Distributor: [email or web address] Modifier: [email or web address] <+> 1 Patient Out of Preop Finalized By: JAC LERNER, RN Document Signatures Signed By: JAC LERNER RN 05/02/19 14:26 Electronically signed by Med [facility] Conversion Top Dyeing Machine Tender Cerner at 12/24/2022 11:27 PM CDT documented in this encounter Plan of Treatment Upcoming Encounters Date Type Department Care Team (Late st Contact Info) Description 06/15/2025 3:00 PM EDT Appointment [address] [place] [address] 08/10/2025 1:15 PM EST Office [facility] [address] [facility] [address] [place] [address] Ida Manzo MD [address] [place] [address] [address] [place] [address] documented as of this encounter Visit Diagnoses Not on filedocumented in this encounter Care Teams Mountain Or Glacier Guide Relationship Specialty Start Date End Date Ida Manzo MD [facility] [address] [place] [address] PCP - General Hematology and Oncology 10/13/22 documented as of this encounter
--- OUTSIDE RECORDS SUMMARY | 2025-06-12 13:03 | XMS_ITS | Encounter Summary ---
Author Organization [employer] ([place], [place], [place], [place]) Address [address] [place] [address] Care Team Providers Care General Road Production Manager Name Role Phone Ida Manzo MD Primary Care Provider [phone] Encounter Details Date Type Department Care Team (Late st Contact Info) Description 05/05/2019 Transcribed Document [facility] [place] [address] ProviderAdy MD [address] [place] [id number] Social History Tobacco Use Types Packs/Day Years Used Date Smoking Tobacco: Never Assessed Comments Unknown Sex and Gender Information Value Date Recorded Sex Assigned at Not on file Legal Sex Female 6:39 PM CDT Gender Identity Not on file Sexual Orientation Not on file documented as of this encounter Miscellaneous Notes * [employer] Conversion Note - Ady Casillas MD - 05/05/2019 8:41 AM CDT [facility] Consultation Note RE: MAGGI POLLACKAN : 1990 Date of Service: 05/05/2019 Referring Provider: JULIA BELLAMY Reason for Referral: Breast cancer CC: Anxiety Cancer History: 1. 2 cm palpable mass in the upper inner quadrant of the right breast. 2. Biopsy 03/28 performed at outside hospital with grade 2 invasive ductal carcinoma, ER/PA/HER-2+. 3. Starting neoadjuvant Taxotere, carboplatin, trastuzumab and Pertuzumab today. HPI: Ms. Pollack returns for follow-up for breast cancer. She is doing well other than anxiety over starting therapy. She had her port placed and some tenderness and bruising to left chest from insertion. Full ADLs with ECOG PS 0. Past Medical History: Hypertension Irritable Bowel Anxiety Allergies Past Surgical History: breast augmentation, 01/2018 urethral dilation, 11/2017 C section, exploratory lap, partial hysterectomy, 08/2013 leep surgery, 2008 Social History: Denies alcohol, tobacco or illicit drug use. Family History: Mother with lung cancer, no breast or ovarian cancer. Allergies: No Known Drug Allergies Medication List: Sancuso (granisetron) [granisetron (Sancuso)] 1 Patch Transdermal as directed 04/25/2019 dexamethasone 2 Tablet Oral twice daily 04/25/2019 EMLA (lidocaine-prilocaine) [lidocaine-prilocaine (EMLA)] 1 Application Topical once a day 04/25/2019 Compazine (prochlorperazine maleate) [prochlorperazine maleate (Compazine)] 1 Tablet Oral 1 tab every 6 hours 04/25/2019 Phenergan (promethazine) [promethazine (Phenergan)] 1 Tablet Oral every 6 hours 04/25/2019 lorazepam 1 Tablet Oral Twice a Day PRN BuSpar (buspirone) [buspirone (BuSpar)] 1 Tablet Oral Twice a Day sertraline 1 Tablet Oral Daily Zyrtec (cetirizine) [cetirizine (Zyrtec)] 1 Tablet Oral Daily Decadron PO (dexamethasone PO) [dexamethasone PO (Decadron PO)] 8 mg Oral as directed 05/05/2019 Review of Systems: A complete 14 pt ROS completed and negative unless otherwise mentioned in HPI. Vital Signs: Vital Signs & Weight; Pulse - 93; B/P - 107/62; Pulse Ox - 96%; Weight (lb) (lb) - 133.16; BSA(D) (m*2) - 1.7 Physical Examination: Gen-NAD, alert and oriented x3. Eyes-PER, EOMI, no scleral icterus. ENT-Oropharynx clear without lesions or exudate. Neck-Supple without JVD or thyromegaly. Lymph-No cervical, supraclavicular adenopathy. CV-RRR, no murmurs, rubs or gallops. Lungs-CTAB, no wheezes, rales, or rhonchi. Abd-soft, ntnd, positive bowel sounds, no mass, no hepatosplenomegaly. Extremities-no cyanosis, clubbing, or edema. Skin-No rashes or jaundice. Heme-No petechiae or ecchymoses. Neuro-Normal speech and gait. Strength and sensation intact upper and lower extremities. Psych-Normal mood and affect. Breast- 2cm RUIQ mass. No skin or nipple changes. No axillary adenopathy. Access-left port- CDI Radiology: MRI of the breasts 04/28 2.0 x 1.7 cm enhancing mass posterior upper inner quadrant of the right breast. Otherwise unremarkable. Pathology: Biopsy 04/07/19 Breast, biopsy, needle cores, right, 1:00 Invasive ductal carcinoma. Waldo combined histologic grade 2, 0.4cm in greatest measured dimensions. Tubule formation: 2 points. Nuclear pleomorphism: 3 points. Mitotic rate: 2 points. ER: Positive PA: positive HER-2/darrel: Positive. Cancer Diagnosis and Staging: Dx Code Description\.[email or web address]&.[email or web address]\M Stage [ICD10] C50.211 Malignant neoplasm of upper-inner quadrant of right female breast Assessment/Plan: 28 YO with clinical stage I ductal carcinoma of the breast. Starting neoadjuvant Taxotere, carboplatin, trastuzumab and Pertuzumab today. Port placed. She is interested in breast conserving surgery, which seems reasonable. It is likely that her tumor receive will diminish with preoperative therapy, clip placed for localization at time of lumpectomy. Previously discussed adjuvant therapy, which will depend upon the degree of pathologic response. She will need either Herceptin and Perjeta or Kadcyla to complete one year after surgery. She will also need adjuvant endocrine therapy such as tamoxifen or aromatase inhibitor, as well as adjuvant radiation. Previously discussed the SOFT/TEXT data for young women with high-grade tumors requiring chemotherapy, demonstrating a survival advantage for ovarian suppression or oophorectomy, will delay oophorectomy until after completion of chemotherapy and surgery. ECHO with EF 65% and no structural abnormalities. Repeat ECHO in 3 months; 07/29. Genetic testing did not reveal a pathogenic mutation. She has received genetic counseling. Continue anti-emetics as needed for nausea. Continue Ativan to take as needed for anxiety. Thank you for allowing me to participate in the care of this patient. Please call with any additional questions or concerns that may arise. CC: Julia Bellamy [facility] Ida Manzo MD [address], [address] , [place] [address] 2 Electronically signed by [facility], [facility] Conversion Manager Services [employer] at 12/24/2022 11:17 PM CDT documented in this encounter Plan of Treatment Upcoming Encounters Date Type Department Care Team (Late st Contact Info) Description 06/15/2025 3:00 PM EDT Appointment [facility] Breast [facility] [address] [place] [address] 08/10/2025 1:15 PM EST Office Visit [facility] - [place] [address] [place] [id number] Ida Manzo MD [address] [place] [address] [address] [place] [address] documented as of this encounter Visit Diagnoses Not on filedocumented in this encounter Care Teams General Road Production Manager Relationship Specialty Start Date End Date Ida Manzo MD [address] [place], [place] [id number] PCP - General Hematology and Oncology 10/13/22 documented as of this encounter
--- OUTSIDE RECORDS SUMMARY | 2025-06-12 13:03 | XMS_ITS | Encounter Summary ---
Author Organization [employer] ([place], [place], [place], [place]) Address [address] [place] [address] Care Team Providers Care Property Utilization Officer Name Role Phone Ida Manzo MD Primary Care Provider [phone] Encounter Details Date Type Department Care Team (Late st Contact Info) Description 09/24/2019 Transcribed Document [facility] Family Medicine [facility] [place] [address] ProviderAdy MD [address], [place] [address] Social History Tobacco Use Types Packs/Day Years Used Date Smoking Tobacco: Never Assessed Comments Unknown Sex and Gender Information Value Date Recorded Sex Assigned at Not on file Legal Sex Female 6:39 PM CDT Gender Identity Not on file Sexual Orientation Not on file documented as of this encounter Miscellaneous Notes * Cerner Conversion Note - Ady ProviderMD - 09/24/2019 11:17 AM [facility] Main OR IntraOp Summary Primary Physician: JULIA ESCALANTE MD-SUR Finalized Date/Time: 09/24/19 12:12:30 Pt. Name: MAGGI POLLACKDENISE Edwards D.O.B./Sex: 1990 Female Med Rec #: [id number] Physician: JULIA ESCALANTE MD-SUR Financial #: [id number] Pt. Type: O Room/Bed: [facility]/ Admit/Disch: 09/24/19 06:38:00 - Institution: [facility] Case Attendance Entry 1 Entry 2 Entry 3 Case Attendee JULIA ESCALANTE GARNER, ANGELA, QUALITY ASSURANCE ENGINEER Daphne Oquendo Rn MD-CHRISTIANO Role Performed Surgeon/Proceduralist, QUALITY ASSURANCE ENGINEER/Nurse Toolmaker Wheel Molder, First First Time In 09/24/19 11:11:00 09/24/19 10:58:00 09/24/19 10:58:00 Time Out 09/24/19 12:12:00 09/24/19 12:12:00 09/24/19 12:12:00 Procedure Breast Lumpectomy, Breast Lumpectomy, Breast Lumpectomy, Breast Biopsy FS Needle Breast Biopsy FS Needle Breast Biopsy FS Needle Localization, Breast Localization, Breast Localization, Breast Lumpectomy [place] Lumpectomy [place] Lumpectomy [place] Node Map Biop Node Map Biop Node Map Biop Other Attendee Superficial Wound Closed By: Last Modified By: Daphne Oquendo Rn Maxwell, Kristi, Rn Maxwell, Kristi, Rn 09/24/19 12:12:26 09/24/19 12:12:26 09/24/19 12:12:26 Entry 4 Entry 5 Entry 6 Case Attendee JILL SOSA Rosalie, LEVITSKY, BENJAMIN P Therapeutic Recreation Specialist Role Performed Scrub, Application Administrator, First Scrub, First Time In 09/24/19 10:58:00 09/24/19 10:58:00 09/24/19 11:07:00 Time Out 09/24/19 11:09:00 09/24/19 12:12:00 09/24/19 12:12:00 Procedure Breast Lumpectomy, Breast Lumpectomy, Breast Lumpectomy, Breast Biopsy FS Needle Breast Biopsy FS Needle Breast Biopsy FS Needle Localization, Breast Localization, Breast Localization, Breast Lumpectomy [place] Lumpectomy [place] Lumpectomy [place] Node Map Biop Node Map Biop Node Map Biop Other Attendee Superficial Wound Closed By: Last Modified By: Daphne Oquendo Rn Maxwell, Kristi, Rn Maxwell, Kristi, Rn 09/24/19 12:12:26 09/24/19 12:12:26 09/24/19 12:12:26 Entry 7 Case Attendee ADRIAN MALHOTRA RN Role Performed Wheel Molder, Second Time In 09/24/19 11:56:00 Time Out 09/24/19 12:12:00 Procedure Breast Lumpectomy, Breast Biopsy FS Needle Localization Other Attendee scientific informatics analyst lunch rel;ief Superficial Wound Closed By: Last Modified By: Daphne Oquendo Rn 09/24/19 12:12:26 [facility] Case Attendance Audit 09/24/19 12:12:26 Ios Architect: [id number] Modifier: [id number] <+> Time Out 1 <*> Procedure Breast Lumpectomy, Breast Biopsy FS Needle Localization, Breast Lumpectomy [place] Node Map Biop 2 <+> Time Out 2 <*> Procedure Breast Lumpectomy, Breast Biopsy FS Needle Localization, Breast Lumpectomy [place] Node Map Biop 3 <+> Time Out 3 <*> Procedure Breast Lumpectomy, Breast Biopsy FS Needle Localization, Breast Lumpectomy [place] Node Map Biop 4 <*> Procedure Breast Lumpectomy, Breast Biopsy FS Needle Localization, Breast Lumpectomy [place] Node Map Biop 5 <+> Time Out 5 <*> Procedure Breast Lumpectomy, Breast Biopsy FS Needle Localization, Breast Lumpectomy [place] Node Map Biop 6 <+> Time Out 6 <*> Procedure Breast Lumpectomy, Breast Biopsy FS Needle Localization, Breast Lumpectomy [place] Node Map Biop 7 <+> Time Out 7 <*> Procedure Breast Lumpectomy, Breast Biopsy FS Needle Localization 09/24/19 11:58:55 Ios Architect: [id number] Modifier: [id number] <+> 7 Case Attendee <+> 7 Role Performed <+> 7 Time In <+> 7 Procedure <+> 7 Other Attendee 09/24/19 11:27:58 Ios Architect: [id number] Modifier: [id number] 1 <*> Procedure Breast Lumpectomy, Breast Biopsy FS Needle Localization 2 <*> Procedure Breast Lumpectomy, Breast Biopsy FS Needle Localization 3 <*> Procedure Breast Lumpectomy, Breast Biopsy FS Needle Localization 4 <*> Procedure Breast Lumpectomy, Breast Biopsy FS Needle Localization 5 <*> Procedure Breast Lumpectomy, Breast Biopsy FS Needle Localization 6 <*> Procedure Breast Lumpectomy, Breast Biopsy FS Needle Localization 09/24/19 11:27:26 Ios Architect: [id number] Modifier: [id number] 1 <*> Procedure Breast Lumpectomy, Breast Biopsy FS Needle Localization, Breast Lumpectomy [place] Node Map Biop 2 <*> Procedure Breast Lumpectomy, Breast Biopsy FS Needle Localization, Breast Lumpectomy [place] Node Map Biop 3 <*> Procedure Breast Lumpectomy, Breast Biopsy FS Needle Localization, Breast Lumpectomy [place] Node Map Biop 4 <*> Procedure Breast Lumpectomy, Breast Biopsy FS Needle Localization, Breast Lumpectomy [place] Node Map Biop 5 <*> Procedure Breast Lumpectomy, Breast Biopsy FS Needle Localization, Breast Lumpectomy [place] Node Map Biop 6 <*> Procedure Breast Lumpectomy, Breast Biopsy FS Needle Localization, Breast Lumpectomy [place] Node Map Biop 09/24/19 11:26:42 Ios Architect: [id number] Modifier: [id number] 1 <*> Procedure Breast Lumpectomy, Breast Biopsy FS Needle Localization 2 <*> Procedure Breast Lumpectomy, Breast Biopsy FS Needle Localization 3 <*> Procedure Breast Lumpectomy, Breast Biopsy FS Needle Localization 4 <*> Procedure Breast Lumpectomy, Breast Biopsy FS Needle Localization 5 <*> Procedure Breast Lumpectomy, Breast Biopsy FS Needle Localization 6 <*> Procedure Breast Lumpectomy, Breast Biopsy FS Needle Localization 09/24/19 11:12:03 Ios Architect: [id number] Modifier: [id number] <+> Time Out 4 <*> Procedure Breast Lumpectomy, Breast Biopsy FS Needle Localization <+> 6 Case Attendee <+> 6 Role Performed <+> 6 Time In <+> 6 Procedure 09/24/19 11:11:21 Ios Architect: [id number] Modifier: [id number] 1 <+> Time In 1 <*> Procedure Breast Lumpectomy, Breast Biopsy FS Needle Localization 2 <+> Time In 2 <*> Procedure Breast Lumpectomy, Breast Biopsy FS Needle Localization 3 <+> Time In 3 <*> Procedure Breast Lumpectomy, Breast Biopsy FS Needle Localization 4 <+> Time In 4 <*> Procedure Breast Lumpectomy, Breast Biopsy FS Needle Localization 5 <+> Time In 5 <*> Procedure Breast Lumpectomy, Breast Biopsy FS Needle Localization 09/24/19 09:57:50 Ios Architect: [id number] Modifier: [id number] <+> 1 Procedure <+> 2 Procedure <+> 3 Procedure <+> 4 Procedure <+> 5 Procedure [facility] Case Times Entry 1 Patient In Room Time 09/24/19 10:58:00 Out Room Time 09/24/19 12:12:00 Anesthesia Start Time 09/24/19 10:58:00 Stop Time 09/24/19 12:12:00 Anesthesia Ready 09/24/19 10:58:00 Surgery / Procedure Times Start Time 09/24/19 11:17:00 Stop Time 09/24/19 12:02:00 Last Modified By: Daphne Oquendo Rn 09/24/19 12:12:09 [facility] Case Times Audit 09/24/19 12:12:09 Ios Architect: [id number] Modifier: [id number] <+> 1 Out Room Time <+> 1 Stop Time <+> 1 Stop Time 09/24/19 11:19:09 Ios Architect: [id number] Modifier: [id number] <+> 1 Start Time [facility] Cautery Entry 1 ESU Identification Cautery Type Monopolar ESU ID Number [id number] ID Type Hospital Number Cautery Settings Cut Setting 30 Coag Setting 30 ESU Grounding Pad Ground Pad Type Adult Grounding Pad Site Right thigh Grounding Pad Daphne Oquendo Rn Applied By Grounding Pad Site Intact Skin Condition Before Cautery Grounding Pad Site Unchanged Skin Condition After Cautery Last Modified By: Daphne Oquendo Rn 09/24/19 09:53:31 [facility] Communication Entry 1 Communication To Family/Significant other Comment PROCEDURE START Communication By Daphne Oquendo Rn Date and Time 09/24/19 11:19:00 Last Modified By: Daphne Oquendo Rn 09/24/19 11:22:06 [facility] Counts Verification Entry 1 Procedure Breast Lumpectomy, Breast Biopsy FS Needle Localization, Breast Lumpectomy [place] Node Map Biop Count Info Count Type Sponge, Sharps, Miscellaneous Counts Verification Baseline/pre-procedure Sequence Counts Performed By Count Performed By JILL SOSA (Scrub) Count Performed By Daphne Oquendo Rn (RN) Last Modified By: Daphne Oquendo Rn 09/24/19 11:28:00 [facility] Counts Verification Audit 09/24/19 11:28:00 Ios Architect: [id number] Modifier: [id number] 1 <*> Procedure Breast Lumpectomy, Breast Biopsy FS Needle Localization 09/24/19 11:27:26 Ios Architect: [id number] Modifier: [id number] 1 <*> Procedure Breast Lumpectomy, Breast Biopsy FS Needle Localization [facility] Counts Final Entry 1 Procedure Breast Lumpectomy, Breast Biopsy FS Needle Localization, Breast Lumpectomy [place] Node Map Biop Final Count Info Count Type Sponge, Sharps, Miscellaneous Counts Verification Skin Closure/end of Sequence procedure Counts Performed By Count Performed By JILL SOSA (Scrub) Count Performed By Daphne Oquendo Rn (RN) Last Modified By: Daphne Oquendo Rn 09/24/19 11:28:02 [facility] Counts Final Audit 09/24/19 11:28:02 Ios Architect: [id number] Modifier: [id number] 1 <*> Procedure Breast Lumpectomy, Breast Biopsy FS Needle Localization 09/24/19 11:27:28 Ios Architect: [id number] Modifier: [id number] 1 <*> Procedure Breast Lumpectomy, Breast Biopsy FS Needle Localization [facility] Cultures and Spec Summary Entry 1 Cultrures and Specimens Specimen Ordered: Yes Test(s) Fresh/Path-Lab, Other: Requested/Final Segment text Disposition Last Modified By: Daphne Oquendo Rn 09/24/19 11:39:06 General Comments: SPECIMEN TO BREAST CENTER FIRST; THEN PATHOLOGY [facility] Cultures and Spec Summary Audit 09/24/19 11:39:06 Ios Architect: [id number] Modifier: [id number] 1 <*> Test(s) Requested/Final Disposition Other: Segment text 09/24/19 09:54:38 Ios Architect: [id number] Modifier: [id number] 1 <*> Specimen Ordered: [facility] Departure from OR Entry 1 Integumentary Assessment Integumentary WDL Assessment WDL Transfer/Handoff Transfer to PACU Phase I Handoff Method Bedside/Face to face Post-op Transport Stretcher/Gurney Via Patient Transport Daphne Oquendo Rn, Accompanied by ANAT MCCOY CRNA Last Modified By: Daphne Oquendo Rn 09/24/19 09:54:33 [facility] Dressing and Packing Entry 1 Type Dressing Location BREAST Wound Dressing Item Skin Closure Glue Applied By Lizette Diana Therapeutic Recreation Specialist Last Modified By: Daphne Oquendo Rn 09/24/19 09:54:57 [facility] Fire Risk Assessment Entry 1 Fire Info Surgical Site or 1- Yes Incision Above the Xyphoid Open O2 Source 0- No (Mask or Cannula) Available Ignition 1- Yes (ESU, Laser, Light Source) Fire Risk 2 Assessment Score Fire Score Fire Risk Yes Assessment Complete Fire Risk Daphne Oquendo Rn Assessment Verified By Fire Risk 09/24/19 09:54:00 Assessment Verified Date/Time Fire Risk Standard Fire Yes Safety Precautions Followed Last Modified By: Daphne Oquendo Rn 09/24/19 09:55:11 [facility] General Case Plaster Helper 1 Case Information OR OR 01 [facility] Case Level 1 Room Verified Yes Wound Class I - Clean Specialty SN General Anesthesia Type General ASA Class 2 Diagnosis Preop Diagnosis BREAST CANCER Postop Same As Preop No Postop Diagnosis DICTATED BY MD Last Modified By: Daphne Oquendo Rn 09/24/19 11:22:36 [facility] General Case Data Audit 09/24/19 11:22:36 Ios Architect: [id number] Modifier: [id number] <+> 1 ASA Class <+> 1 Room Verified [facility] Intraoperative Assessment Entry 1 Handoff Method Other Valid History / Yes Physical in Chart Preoperative Yes Checklist Reviewed/Evaluated Allergies Reviewed Yes Patient is Latex No Sensitive Isolation Not applicable Precautions Noted Level of WDL Consciousness (WDL = Alert, Oriented to Person, Place, and Time) Skin Assessment Yes Verified Present Upon IVs Arrival to OR Last Modified By: Daphne Oquendo Rn 09/24/19 09:55:57 [facility] Intraoperative Assessment Audit 09/24/19 09:55:57 Ios Architect: [id number] Modifier: [id number] <+> 1 Patient is Latex Sensitive [facility] Intraoperative Equipment Entry 1 Equipment Intraop Monitoring Electrocardiogram Three lead placement (ECG) Electrode Placement Blood Pressure Non-Invasive BP Device Source Antiembolic Devices Antiembolic Devices Sequential compression device, knee high Antiembolic Device Bilateral Location Scopes Photo/Video Documentation Photo No Video No Intraop Equipment SCD'S ON AND Comment OPERATIONAL BEFORE PATIENT ASLEEP Last Modified By: Daphne Oquendo Rn 09/24/19 09:56:25 [facility] Medication Admin Entry 1 Medication/Irrigant Xylocaine 1% w/ epinephrine 1:200,000 30ml vial - [id number] Route of LOCAL INJECTION Administration Dose Dose 30 Unit of Measure ml Volume QS Administered By JULIA ESCALANTE MD-SUR Procedure Irrigation Last Modified By: Daphne Oquendo Rn 09/24/19 09:56:55 [facility] Patient Positioning Entry 1 Procedure Breast Biopsy FS Needle Localization, Breast Lumpectomy [place] Node Map Biop Body Position Supine Left Arm Position Secured on padded arm board Right Arm Position Secured on padded arm board Left Leg Position Uncrossed, parallel Right Leg Position Uncrossed, parallel Feet Uncrossed Yes Pressure Points Yes Checked Positioning Devices Arm Board, Safety Strap, Thighs, Pillows Positioned By Daphne Oquendo Rn, Le[place], Lizette, Therapeutic Recreation Specialist, ANAT MCCOY, RONA, JULIA ESCALANTE MD-SUR Position Verified Positioning Yes Verified by Anesthesia Positioning Yes Verified by Surgeon Last Modified By: Daphne Oquendo Rn 09/24/19 11:28:00 [facility] Patient Positioning Audit 09/24/19 11:28:00 Ios Architect: [id number] Modifier: [id number] 1 <*> Procedure Breast Biopsy FS Needle Localization 09/24/19 11:27:27 Ios Architect: [id number] Modifier: [id number] 1 <*> Procedure Breast Biopsy FS Needle Localization [facility] Sign In Entry 1 Patient, Site, Yes Procedure Identified Surgical Consent Yes Confirmed Relevant Surgical Yes Documents Available Surgical Site Yes Marked by person performing procedure Anesthesia Machine Yes Check Completed Medication Checks Yes Completed Allergies Yes Airway Difficult No Airway/Aspiration Risk Difficult Yes Airway/Aspiration Intervention Equipment Available Blood Loss Risk No Blood Loss Yes Intervention Equipment Prepared and Ready Blood Identifiers Not applicable Verified Per Policy Hypothermia Risk Yes Warming Measures Yes Taken Last Modified By: Daphne Oquendo Rn 09/24/19 09:57:20 [facility] Sign Out Entry 1 RN Confirmation Surgical Yes Procedure(s) Identified Instrument, Sponge Yes and Sharps Counts Correct/Documented Equipment Problems N/A Documented Specimen Labeled Yes Correctly Urinary Catheter N/A Documented in IView Lug[place] Patient Yes Recovery Concerns Reviewed with Anesthesia Provider, Surgeon and RN [place] Patient Yes Management Concerns Reviewed with Anesthesia Provider, Surgeon and RN Safety Checklist Yes Elements Complete? RN Sign Out ADRIAN MALHOTRA, RN Signature RN Sign Out 09/24/19 12:12:00 Signature Date/Time Plan of Care Outcome - [...] of Care Outcome - Xray/Images OUTCOME STATEMENT: N/A Absence of observable signs or symptoms of radiation injury Plan of Care Outcome - Counts OUTCOME STATEMENT: Goal met Absence of signs and symptoms of injury related to extraneous objects Last Modified By: Daphne Oquendo Rn 09/24/19 12:12:21 [facility] Sign Out Audit 09/24/19 12:12:21 Ios Architect: [id number] Modifier: [id number] <+> 1 RN Sign Out Signature Date/Time 09/24/19 11:59:10 Ios Architect: [id number] Modifier: [id number] 1 <*> RN Sign Out Signature Daphne Oquendo Rn [facility] Skin Prep Entry 1 Procedure Breast Lumpectomy, Breast Biopsy FS Needle Localization, Breast Lumpectomy [place] Node Map Biop Prescribed Yes Pre-Surgical Prep Completed Prep Area CHEST SHEET TO SHEET, NECK TO MID ABDOMEN Intraop Prep Integumentary WDL Assessment WDL Prep Agents Chlorhexadine gluconate Prep by Daphne Oquendo Rn Hair Removal Methods No hair removal performed Last Modified By: Daphne Oquendo Rn 09/24/19 11:28:01 [facility] Skin Prep Audit 09/24/19 11:28:01 Ios Architect: [id number] Modifier: [id number] 1 <*> Procedure Breast Lumpectomy, Breast Biopsy FS Needle Localization 09/24/19 11:27:27 Ios Architect: [id number] Modifier: [id number] 1 <*> Procedure Breast Lumpectomy, Breast Biopsy FS Needle Localization [facility] Surgical Procedures Entry 1 Entry 2 Entry 3 Procedure Breast Lumpectomy Breast Biopsy FS Needle Breast Lumpectomy Localization [place] Node Map Biopsy Modifiers Additional RIGHT BREAST NEEDLE LOC Procedure LUMPECTOMY Description Primary Procedure Yes No No Primary Surgeon JULIA ESCALANTE, JULIA ESCALANTE, JULIA ESCALANTE MD-SUR MD-CHRISTIANO CUELLAR Start 09/24/19 11:17:00 09/24/19 11:17:00 09/24/19 11:17:00 Stop 09/24/19 12:02:00 09/24/19 12:02:00 09/24/19 12:02:00 Physician States Cecum Reached Anesthesia Type General General General Specialty SN General SN General SN General Wound Class I - Clean I - Clean I - Clean Last Modified By: Daphne Oquendo, Daphne Ramsey, Rn Daphne Oquendo Rn 09/24/19 12:12:22 09/24/19 12:12:22 09/24/19 12:12:22 [facility] Surgical Procedures Audit 09/24/19 12:12:22 Ios Architect: [id number] Modifier: [id number] <+> 1 Stop <+> 2 Stop <+> 3 Stop 09/24/19 11:28:58 Ios Architect: [id number] Modifier: [id number] 3 <*> Procedure Breast Lumpectomy [place] Node Map Biopsy 3 <+> Specialty 3 <+> Wound Class 3 <+> Anesthesia Type 09/24/19 11:27:51 Ios Architect: [id number] Modifier: [id number] 3 <*> Procedure Breast Lumpectomy [place] Node Map Biopsy 3 <+> Primary Surgeon 3 <+> Start 09/24/19 11:26:37 Ios Architect: [id number] Modifier: [id number] <+> 1 Start <+> 2 Start <+> 3 Procedure <+> 3 Primary Procedure [facility] Time Out Entry 1 Procedure to be Breast Lumpectomy, Performed Breast Biopsy FS Needle Localization, Breast Lumpectomy [place] Node Map Biop Time Out Time Out Pause Time 09/24/19 11:15:00 All activity Yes suspended (unless life threatening [...] 60 Minutes Beta Coco N/A Administered Venous Yes Thromboembolism Prophylaxis Required Anticipated Critical Events Surgeon None expected Anesthesia Provider None expected Nursing Assures Sterility of instruments Essential Imaging N/A Labeled and Displayed Last Modified By: Daphne Oquendo Rn 09/24/19 11:28:01 [facility] Time Out Audit 09/24/19 11:28:01 Ios Architect: [id number] Modifier: [id number] 1 <*> Procedure to be Performed Breast Lumpectomy, Breast Biopsy FS Needle Localization 09/24/19 11:27:27 Ios Architect: [id number] Modifier: [id number] 1 <*> Procedure to be Performed Breast Lumpectomy, Breast Biopsy FS Needle Localization, Breast Lumpectomy [place] Node Map Biop 09/24/19 11:26:46 Ios Architect: [id number] Modifier: [id number] 1 <*> Procedure to be Performed Breast Lumpectomy, Breast Biopsy FS Needle Localization 09/24/19 11:15:30 Ios Architect: [id number] Modifier: [id number] 1 <+> Time Out Pause Time 1 <*> Procedure to be Performed Breast Lumpectomy, Breast Biopsy FS Needle Localization Case Comments <None> Finalized By: Daphne Oquendo Rn Document Signatures Signed By: Daphne Oquendo Rn 09/24/19 12:12 Electronically signed by Med [facility] Conversion Finish Inspector Cerner at 12/24/2022 11:36 PM CDT documented in this encounter Plan of Treatment Upcoming Encounters Date Type Department Care Team (Late st Contact Info) Description 06/15/2025 3:00 PM EDT Appointment [address] [place] [address] 08/10/2025 1:15 PM EST Office Visit [facility] [address] [place] [address] Ida Manzo MD [address] [place] [address] documented as of this encounter Visit Diagnoses Not on filedocumented in this encounter Care Teams Property Utilization Officer Relationship Specialty Start Date End Date Ida Manzo MD [address] [place] [address] PCP - General Hematology and Oncology 10/13/22 documented as of this encounter
--- OUTSIDE RECORDS SUMMARY | 2025-06-12 13:03 | XMS_ITS | Encounter Summary ---
Author Organization [employer] ([place], [place], [place], [place]) Address [address] [place] [address] Care Team Providers Care Carpet Floor Layer Apprentice Name Role Phone Ida Manzo MD Primary Care Provider [phone] Encounter Details Date Type Department Care Team (Late st Contact Info) Description 08/17/2019 Transcribed Document [facility] Family Medicine [address] [place] [address] ProviderAdy MD [address] [place] [address] Social History Tobacco Use Types Packs/Day Years Used Date Smoking Tobacco: Never Assessed Comments Unknown Sex and Gender Information Value Date Recorded Sex Assigned at Not on file Legal Sex Female 6:39 PM CDT Gender Identity Not on file Sexual Orientation Not on file documented as of this encounter Miscellaneous Notes * Cerner Conversion Note - Ady ProviderMD - 08/17/2019 12:23 PM PRECISION MECHANICAL INSTRUMENT MAKER ED Assessment Entered On: 08/17/2019 15:34 EST Performed On: 08/17/2019 13:32 EST by Rae Cohn, EDUCATION LIAISON Quick Look Assessment Level of Consciousness : Alert Affect/Behavior : Calm, Cooperative Orientation : Oriented x 4 Skin Color : Other: [place] Skin Temperature : Warm Skin Description : Dry Rae Cohn, RN - 08/17/2019 15:32 EST ED General-Functional Assess Communication Barrier : None Primary Language : Maltese Any Spiritual/Cultural Needs or Requests : No Currently in Unsafe Situation : No Rae Cohn, RN - 08/17/2019 15:32 EST Social Habits Smoking Status : Never (less than 100 in lifetime; none in last 30 days) Smokeless Tobacco Status : Never Desires Tobacco Cessation Calc : 0 Rae Cohn RN - 08/17/2019 15:32 EST Social History (As Of: 08/17/2019 15:34:06 EST) Tobacco: Never (less than 100 in lifetime) Smoking Status. (Last Updated: 05/02/2019 11:00:34 EDT by JAC LERNER, BIANCA) Alcohol: Alcohol Use History No. (Last Updated: 05/02/2019 11:00:38 EDT by JAC LERNER RN) Substance Abuse: Drug Use Hx: No. Use in Last 12 Months: No. (Last Updated: 05/02/2019 11:00:42 EDT by JAC LERNER RN) Respiratory Respiratory Assessment WDL : WDL with exceptions Rae Cohn RN - 08/17/2019 15:32 EST Breath Sounds Assessment Grid All Lobes Breath Sounds : Clear Rae Cohn RN - 08/17/2019 15:32 EST Respiratory Assessment Comment : Pt c/o cold like symptoms that started yesterday. Pt taking chemotherapy for breast cancer. Congestion, runny nose, and fever. Rae Cohn RN - 08/17/2019 15:32 EST documented in this encounter Plan of Treatment Upcoming Encounters Date Type Department Care Team (Late st Contact Info) Description 06/15/2025 3:00 PM EDT Appointment [facility] [address] [place] [address] 08/10/2025 1:15 PM EST Office Visit [facility] - [place] [address] [address] [facility] [address] [place] [id number] Ida Manzo MD [address] [place] [address] documented as of this encounter Visit Diagnoses Not on filedocumented in this encounter Care Teams Carpet Floor Layer Apprentice Relationship Specialty Start Date End Date Ida Manzo MD [address] [id number] PCP - General Hematology and Oncology 10/13/22 documented as of this encounter
--- OUTSIDE RECORDS SUMMARY | 2025-06-12 13:03 | XMS_ITS | Encounter Summary ---
Author Organization [employer] ([place], [place], [place], [place]) Address [address] [place] [address] Care Team Providers Care Project Manager Industrial Name Role Phone Ida Manzo MD Primary Care Provider [phone] Encounter Details Date Type Department Care Team (Late st Contact Info) Description 09/24/2019 Transcribed Document [facility] [place] [facility] [place] [address] ProviderAdy MD [address] [place], [place] [address] Social History Tobacco Use Types Packs/Day Years Used Date Smoking Tobacco: Never Assessed Comments Unknown Sex and Gender Information Value Date Recorded Sex Assigned at Not on file Legal Sex Female 6:39 PM CDT Gender Identity Not on file Sexual Orientation Not on file documented as of this encounter Miscellaneous Notes * Cerner Conversion Note - Ady ProviderMD - 09/24/2019 11:17 AM LABORATORY TESTER [facility] [place] PACU Summary Primary Physician: JULIA ESCALANTE MD-SUR Finalized Date/Time: 09/24/19 13:05:18 Pt. Name: JUANITAKYMBERLYARAMJOSE L Edwards D.O.B./Sex: 1990 Female Med Rec #: [id number] Physician: JULIA ESCALANTE MD-SUR Financial #: [id number] Pt. Type: O Room/Bed: [facility] Admit/Disch: 09/24/19 06:38:00 - Institution: [facility] Main OR PACU Case Times Entry 1 In PACU I 09/24/19 12:15:00 Ready for PACU 09/24/19 12:55:00 Discharge Discharge from PACU 09/24/19 13:03:00 I Last Modified By: Delfina Interiano, [id number]-OP CAR 09/24/19 12:51:38 [facility] Main OR PACU Case Times Audit 09/24/19 13:05:05 Assistant Speech Language Pathologist: [id number] Modifier: [id number] <+> 1 Discharge from PACU I 09/24/19 12:51:38 Assistant Speech Language Pathologist: [id number] Modifier: [id number] <+> 1 Ready for PACU Discharge [facility] Main OR PACU Acuity Entry 1 Start Time 09/24/19 12:55:00 Stop Time 09/24/19 13:03:00 Acuity Level [facility] PACU Acuity I Last Modified By: Delfina Interiano, [id number]-OP CAR 09/24/19 12:46:24 [facility] Main OR PACU Acuity Audit 09/24/19 13:05:12 Assistant Speech Language Pathologist: [id number] Modifier: [id number] <+> 1 Stop Time 09/24/19 12:51:44 Assistant Speech Language Pathologist: [id number] Modifier: [id number] <+> 1 Start Time Finalized By: Delfina Interiano, [id number]-OP CAR Document Signatures Signed By: Delfina Interiano, [id number]-HF-[id number]-OP CAR 09/24/19 13:05 documented in this encounter Plan of Treatment Upcoming Encounters Date Type Department Care Team (Late st Contact Info) Description 06/15/2025 3:00 PM EDT Appointment [facility] Breast Care [address] [place] [address] 08/10/2025 1:15 PM EST Office Visit [facility] - [facility] [address] [facility] [address] [place] [phone] Ida Manzo MD [address] [place] [phone] documented as of this encounter Visit Diagnoses Not on filedocumented in this encounter Care Teams Project Manager Industrial Relationship Specialty Start Date End Date Ida Manzo MD [address] [place], [place] [phone] PCP - General Hematology and Oncology 10/13/22 documented as of this encounter
--- OUTSIDE RECORDS SUMMARY | 2025-06-12 13:03 | XMS_ITS | Encounter Summary ---
Author Organization [employer] ([place], [place], [place], [place]) Address [address] [place] [address] Care Team Providers Care Dispatch Lead Name Role Phone Ida Manzo MD Primary Care Provider [phone] Encounter Details Date Type Department Care Team (Late st Contact Info) Description 05/02/2019 Transcribed Document [facility] [place] [facility] [place] [address] ProviderAdy MD [address] [place] [address] Social History Tobacco Use Types Packs/Day Years Used Date Smoking Tobacco: Never Assessed Comments Unknown Sex and Gender Information Value Date Recorded Sex Assigned at Not on file Legal Sex Female 6:39 PM CDT Gender Identity Not on file Sexual Orientation Not on file documented as of this encounter Miscellaneous Notes * Cerner Conversion Note - Ady ProviderMD - 05/02/2019 12:21 PM CDT [facility] Main OR PostOp Summary Primary Physician: JULIA RAY MD-SUR Finalized Date/Time: 05/02/19 15:44:01 Pt. Name: MAGGI POLLACKDENISE Edwards D.O.B./Sex: 1990 Female Med Rec #: [id number] Physician: JULIA RAY MD-SUR Financial #: [id number] Pt. Type: O Room/Bed: Admit/Disch: 05/02/19 10:09:00 - Institution: [facility] Main OR PostOp Case Times Entry 1 In PACU II 05/02/19 13:02:00 Ready for PACU II 05/02/19 13:30:00 Discharge Discharge from PACU 05/02/19 15:25:00 II Last Modified By: ANAHI BENSON RN 05/02/19 15:26:08 Finalized By: ANAHI BENSON, RN Document Signatures Signed By: ANAHI BENSON RN 05/02/19 15:44 Electronically signed by Med [facility] Conversion Classifying Machine Operator Cerner at 12/24/2022 11:20 PM CDT documented in this encounter Plan of Treatment Upcoming Encounters Date Type Department Care Team (Late st Contact Info) Description 06/15/2025 3:00 PM EDT Appointment [address] [place] [address] 08/10/2025 1:15 PM EST Office Visit [facility] - [facility]ptali [facility] NEPTALI [facility] [address] [place] [phone] Ida Manzo MD [address] [place] [address] [address] [place] [address] documented as of this encounter Visit Diagnoses Not on filedocumented in this encounter Care Teams Dispatch Lead Relationship Specialty Start Date End Date Ida Manzo MD [address] [place] [address] [address] [place] [address] PCP - General Hematology and Oncology 10/13/22 documented as of this encounter
--- OUTSIDE RECORDS SUMMARY | 2025-06-12 13:03 | XMS_ITS | Encounter Summary ---
Author Organization [employer] ([place], [place], [place], [place]) Address [address] [place] [address] Care Team Providers Care Finisher Brush Name Role Phone Ida Manzo MD Primary Care Provider [phone] Encounter Details Date Type Department Care Team (Late st Contact Info) Description 08/17/2019 Transcribed Document [facility] [place] [facility] [place] [address] ProviderAdy MD [address] [place], [place] [id number] Social History Tobacco Use Types Packs/Day Years Used Date Smoking Tobacco: Never Assessed Comments Unknown Sex and Gender Information Value Date Recorded Sex Assigned at Not on file Legal Sex Female 6:39 PM CDT Gender Identity Not on file Sexual Orientation Not on file documented as of this encounter Miscellaneous Notes * Cerner Conversion Note - Ady ProviderMD - 08/17/2019 12:23 PM SUPERVISOR DRY PASTE ED Triage Entered On: 08/17/2019 12:41 EST Performed On: 08/17/2019 12:37 EST by BRODY MAYNARD RN ED Triage Across the Room Chief Complaint : PT statrted getting cold like symptoms 2 days ago and developed 100.5 temp this morning, ocologist told her to come to ED, is supposed to have chemo tomorrow Triage Date/Time : 08/17/2019 12:37 EST BRODY MAYNARD RN - 08/17/2019 12:37 EST DCP GENERIC CODE Tracking Acuity : 3 - Urgent Tracking Group : [facility] ED [facility] BRODY MAYNARD RN - 08/17/2019 12:37 EST Mode of Arrival : Ambulatory Transported to ED by : Private vehicle To Room Via : Ambulate Accompanied By : Spouse ED Vital Signs : Document Height & Weight : Document ED Allergies : Document ED Reason for Visit : Document BRODY MAYNARD RN - 08/17/2019 12:37 EST Infectious Disease History Infectious Disease History : None, Chicken pox/Shingles Fever/Chills Last 48 Hours : No Travel To Regions with Travel Advisories : No Travel Outside [place] Within Last 30 Days : No Contact With Traveler to Advisory Region : No Tuberculosis Symptoms : None BRODY MAYNARD RN - 08/17/2019 12:37 EST Vital Signs ED Temperature Source : Oral Temperature Mode : Fahrenheit Temperature, Fahrenheit : 99.2 Deg F Clinical Temperature, C : 37.3 Deg C Peripheral Pulse Rate : 106 bpm (HI) Respiratory Rate : 18 Breaths/Min Systolic Blood Pressure : 105 mmHg Diastolic Blood Pressure : 58 mmHg (LOW) Oxygen Saturation : 100 % BRODY MAYNARD RN - 08/17/2019 12:37 EST Allergy (As Of: 08/17/2019 12:41:05 EST) Allergies (Active) No Known Medication Allergies Estimated Onset Date: Unspecified ; Created By: JAC LERNER RN; Reaction Status: Active ; Category: Drug ; Substance: No Known Medication Allergies ; Type: Allergy ; Updated By: JAC LERNER RN; Reviewed Date: 08/17/2019 12:39 EST Diagnosis Control ED (As Of: 08/17/2019 12:41:05 EST) Problems(Active) Allergic rhinitis, seasonal (SNOMED CT :320795864 ) Name of Problem: Allergic rhinitis, seasonal ; Recorder: JAC LERNER RN; Confirmation: Confirmed ; Classification: Medical ; Code: [id number] ; Contributor System: PowerChart ; Last Updated: 05/02/2019 10:58 EDT ; Life Cycle Date: 05/02/2019 ; Life Cycle Status: Active ; Vocabulary: SNOMED CT Anxiety (SNOMED CT :37327969 ) Name of Problem: Anxiety ; Recorder: JAC LERNER RN; Confirmation: Confirmed ; Classification: Medical ; Code: [id number] ; Contributor System: [employer]Chart ; Last Updated: 05/02/2019 10:57 EDT ; Life Cycle Date: 05/02/2019 ; Life Cycle Status: Active ; Vocabulary: SNOMED CT Breast cancer (SNOMED CT :008293065 ) Name of Problem: Breast cancer ; Recorder: JAC LERNER RN; Confirmation: Confirmed ; Classification: Medical ; Code: [id number] ; Contributor System: [employer] ; Last Updated: 05/02/2019 10:57 EDT ; Life Cycle Date: 05/02/2019 ; Life Cycle Status: Active ; Vocabulary: SNOMED CT Chronic GERD (SNOMED CT :313580815 ) Name of Problem: Chronic GERD ; Recorder: JAC LERNER RN; Confirmation: Confirmed ; Classification: Medical ; Code: [id number] ; Contributor System: [employer] Practice ; Last Updated: 05/02/2019 10:57 EDT ; Life Cycle Date: 05/02/2019 ; Life Cycle Status: Active ; Vocabulary: SNOMED CT Diagnoses(Active) Fever Date: 08/17/2019 ; Diagnosis Type: Reason For Visit ; Confirmation: Complaint of ; Clinical Dx: Fever ; Classification: Medical ; Clinical Service: Emergency medicine ; Code: PNED ; Probability: 0 ; Diagnosis Code: [id number] ED Height and Weight Height Source : Stated Height Entry Format : [place] Height, Feet : 5 ft(Converted to: 152 cm, 60 Inch) Height, Inches : 7 Inch(Converted to: 0 ft 7 Inch, 17.78 cm) Clinical Height : 170.18 cm Weight Source, ED : Standing scale Weight Entry Format : [place] Weight, Pounds : 128 lb Clinical Dosing Weight : 58.18 kg Body Surface Area (BSA) : 1.67 m2 Body Mass Index : 20.1 kg/m2 [place] Body Weight (IBW) : 61.16 kg BRODY MAYNARD RN - 08/17/2019 12:37 EST ED Influenza/Pneumoccocal Vaccine Influenza Immunization, Current Season : Yes Previous Vaccines from Immunization Schedule : No qualifying data available. BRODY MAYNARD RN - 08/17/2019 12:37 EST Electronically signed by [facility] Conversion Wall Worker Cerner at 12/24/2022 11:49 PM CDT documented in this encounter Plan of Treatment Upcoming Encounters Date Type Department Care Team (Late st Contact Info) Description 06/15/2025 3:00 PM EDT Appointment [facility] Breast [facility] Emergency Department [address] [facility] [address] [place] [address] 08/10/2025 1:15 PM EST Office Visit [facility] [facility] [address] [place] [phone] Ida Manzo MD [address] [place] [address] [address] [place] [address] documented as of this encounter Visit Diagnoses Not on filedocumented in this encounter Care Teams Finisher Brush Relationship Specialty Start Date End Date Ida Manzo MD [address] [place] [address] [address] [place] [address] PCP - General Hematology and Oncology 10/13/22 documented as of this encounter
--- OUTSIDE RECORDS SUMMARY | 2025-06-12 13:03 | XMS_ITS | Encounter Summary ---
Author Organization [employer] ([place], [place], [place], [place]) Address [address] [place] [address] Care Team Providers Care Banking Center Manager Name Role Phone Ida Manzo MD Primary Care Provider [phone] Encounter Details Date Type Department Care Team (Late st Contact Info) Description 09/24/2019 Transcribed Document [facility] Family Medicine [facility] [place] [facility] [place] [address] ProviderAdy MD [address] [place], [place] [address] Social History Tobacco Use Types Packs/Day Years Used Date Smoking Tobacco: Never Assessed Comments Unknown Sex and Gender Information Value Date Recorded Sex Assigned at Not on file Legal Sex Female 6:39 PM CDT Gender Identity Not on file Sexual Orientation Not on file documented as of this encounter Miscellaneous Notes * Cerner Conversion Note - Ady ProviderMD - 09/24/2019 10:00 AM FILING OR REGISTRY CLERK [facility] Main OR PreOp Summary Primary Physician: JULIA ESCALANTE MD-SUR Finalized Date/Time: 09/24/19 11:14:56 Pt. Name: MAGGI POLLACKDENISE Edwards D.O.B./Sex: 1990 Female Med Rec #: [id number] Physician: JULIA ESCALANTE MD-SUR Financial #: [id number] Pt. Type: O Room/Bed: [facility]/ Admit/Disch: 09/24/19 06:38:00 - [place] [facility] [place] Case Times Entry 1 In Preop 09/24/19 06:45:00 Ready for Holding n/a Room Patient Ready for 09/24/19 09:44:00 Surgery Patient Out of Preop 09/24/19 10:54:00 Patient Out of n/a Holding Room Last Modified By: APPLE MARIA 09/24/19 11:14:54 [facility] PreOp Case Times Audit 09/24/19 11:14:54 Underliner: NIMO Modifier: [email or web address] <+> 1 Patient Out of Preop Finalized By: APPLE MARIA Document Signatures Signed By: APPLE MARIA 09/24/19 11:14 Electronically signed by Med [facility] Conversion Bank Boss Cerner at 12/24/2022 11:39 PM CDT documented in this encounter Plan of Treatment Upcoming Encounters Date Type Department Care Team (Late st Contact Info) Description 06/15/2025 3:00 PM EDT Appointment [address] [place] [address] 08/10/2025 1:15 PM EST Office Visit [place] [facility] - [facility] [place] [address] Ida Manzo MD [address] [place] [address] [address] [place] [address] documented as of this encounter Visit Diagnoses Not on filedocumented in this encounter Care Teams Banking Center Manager Relationship Specialty Start Date End Date Ida Manzo MD [facility] [address] [place] [address] PCP - General Hematology and Oncology 10/13/22 documented as of this encounter
--- OUTSIDE RECORDS SUMMARY | 2025-06-12 13:03 | XMS_ITS | Encounter Summary ---
Author Organization [email or web address] ([place], [place], [place], [place]) Address [address] [place] [address] Care Team Providers Care Dairy Equipment Mechanic Name Role Phone Ida Manzo MD Primary Care Provider [phone] Encounter Details Date Type Department Care Team (Late st Contact Info) Description 09/24/2019 Transcribed Document [facility] [place] [address] [place] [address] ProviderAdy MD [address] [place] [id number] Social History Tobacco Use Types Packs/Day Years Used Date Smoking Tobacco: Never Assessed Comments Unknown Sex and Gender Information Value Date Recorded Sex Assigned at Not on file Legal Sex Female 6:39 PM CDT Gender Identity Not on file Sexual Orientation Not on file documented as of this encounter Miscellaneous Notes * Cerner Conversion Note - Ady ProviderMD - 09/24/2019 9:29 AM MANAGER OF NETWORK Pre Procedure Adult Entered On: 09/24/2019 9:35 EST Performed On: 09/24/2019 9:29 EST by Nighat Francis RN Height and Weight, Clinical Dosing Height Source : Stated Height Entry Format : [place] Height, Feet : 5 ft(Converted to: 152 cm, 60 Inch) Height, Inches : 7 Inch(Converted to: 0 ft 7 Inch, 17.78 cm) Clinical Height : 170.18 cm Weight Source : Standing scale Weight Entry Format : [place] Clinical Dosing Weight : 54.09 kg Weight, Pounds : 119 lb Body Surface Area (BSA) : 1.62 m2 Body Mass Index : 18.7 kg/m2 (LOW) [place] Body Weight : 61 kg Nighat Francis RN - 09/24/2019 9:29 EST Health Histories Smoking Status : Never (less than 100 in lifetime; none in last 30 days) Smokeless Tobacco Status : Never Implant/Device Type, Mathematics Department Chair and Model : left chest wall port, bilateral breast augmentation Nighat Francis RN - 09/24/2019 9:29 EST Social History (As Of: 09/24/2019 09:35:31 EST) Tobacco: Never (less than 100 in lifetime) Smoking Status. (Last Updated: 05/02/2019 11:00:34 EDT by JAC LERNER RN) Alcohol: Alcohol Use History No. (Last Updated: 05/02/2019 11:00:38 EDT by JAC LERNER, BIANCA) Substance Abuse: Drug Use Hx: No. Use in Last 12 Months: No. (Last Updated: 05/02/2019 11:00:42 EDT by JAC LERNER RN) Infectious Disease History Physical contact outside [place] in the last 30 days : No Infectious Disease History : None, Chicken pox/Shingles Tuberculosis Symptoms : None Nighat Francis RN - 09/24/2019 9:29 EST Anesthesia/Transfusion History Family History of Anesthesia Reaction : Prior transfusion without reaction Transfusion History : Prior anesthesia without reaction Family History of Anesthesia Reaction : None Nighat Francis RN - 09/24/2019 9:29 EST Functional Assessment Living Situation : Home Patient Lives With : Spouse Persons Assisting Patient at Home : Spouse Current Daily Living Assistance : None Sensory Deficits : None Mobility Assistance Prior to Admission : Independent [place] Hx Falls Immediate/Within 3 Months : No Current Home Treatments : None Professional Skilled Services : None Special Services and Community Resources : None Nighat Francis RN - 09/24/2019 9:29 EST [place] Suicide Severity Rating Scale (C-SSRS) CSSRS Past Month Wish to be : No CSSRS Past Month Suicidal Thoughts : No CSSRS Lifetime Suicide Behavior : No Suicide Severity Rating Score : 0 Suicide Severity Rating : No Additional Care Required at this time Nighat Francis RN - 09/24/2019 9:29 EST Psychosocial History Currently in Unsafe Situation : No Nighat Francis RN - 09/24/2019 9:29 EST Advance Directive Patient has Advance Directive *Q : No, patient refuses Advance Directive information Nighat Francis RN - 09/24/2019 9:29 EST Spiritual/Cultural Needs Any Spiritual/Cultural Needs or Requests : No Nighat Francis RN - 09/24/2019 9:29 EST Teaching/Learning Assessment Barriers To Learning : None evident Individuals Taught : Patient Readiness to Learn : Cooperative Readiness to Learn : Explanation Learning Style Preferences Patient : None Learning Style Preferences Family : None Nighat Francis RN - 09/24/2019 9:29 EST Education Topics, Periop Preadmission Perioperative Education Grid Falls : Verbalizes understanding Infection Control : Verbalizes understanding IV's : Verbalizes understanding NPO Status/Directions : Verbalizes understanding Pain Management : Verbalizes understanding Postoperative Care Preparations : Verbalizes understanding Preprocedure Preparations : Verbalizes understanding Preprocedure Tests/Labs : Verbalizes understanding Nighat Francis RN - 09/24/2019 9:29 EST General Info Arrived From : Home Mode of Arrival on Unit : Ambulatory Patient Arrival Date/Time : 09/24/2019 6:45 EST Legal Guardian : Spouse Support Person/Pt Rep Name : Eric [phone] Want Family/Rep/Phys Notified of Admit : No Emergency Contact #1 : Eric Emergency Contact #1 Emergency Contact #1 Relationship : Emergency Contact #2 : none Emergency Contact #2 Phone Number : none Emergency Contact #2 Relationship : none Information Obtained From : Patient Primary Language : Kuwaiti Preferred Communication Mode : Verbal Communication Barrier : None Currently Lactating : No Status : Hysterectomy Nighat Francis RN - 09/24/2019 9:29 EST Sleep Apnea Risk Assmt Hx of Obstructive Sleep Apnea Diagnosis : No Snore Loudly : No Tired, Fatigued, or Sleepy During Day : Yes Observed Stopping Breathing During Sleep : No Have/Are Being Treated for Hypertension : No BMI Greater Than 35 kg/m2 : No Age over 50 Years Old : No Neck Circumference Greater Than 40 cm : No Gender Male : No STOP-BANG Sleep Apnea Risk Level Score : 1 Nighat Francis RN - 09/24/2019 9:29 EST Rogelio Scale Rogelio Sensory Perception : No impairment Rogelio Moisture : Rarely moist Rogelio Activity : Walks frequently Rogelio Mobility : No limitation Rogelio Nutrition : Adequate Rogelio Friction and Shear : No apparent problem Rogelio Score : 22 Nighat Fracnis RN - 09/24/2019 9:29 EST Oxygen Therapy Oxygen Therapy Mode : Room air Nighat Francis RN - 09/24/2019 9:29 EST Pain Assessment Pain Assessment : Initial assessment Pain Scale Goal : 4 Pain Scale Used : 0-10 Scale Nighat Francis RN - 09/24/2019 9:29 EST Fall Risk Scales ABCs Fall Injury Risk Identification : None [place] Hx Falls Immediate/Within 3 Months : No [place] Secondary Diagnosis : No [place] Use of Ambulatory Aid : None [place] IV Therapy or IV Access : Yes [place] Gait/Transferring : Normal, bedrest, immobile [place] Mental Status : Oriented to own ability [place] Fall Risk Score : 20 [place] Fall Scale Risk Level : 0-24 Low Risk [place] Fall Interventions : Adequate lighting, Bed in low position, Call device within reach, Room free of clutter/spills, Upper side-rails up, Wheels locked Nighat Francis RN - 09/24/2019 9:29 EST Fall Risk Education Grid Call light use : Verbalizes understanding Nonskid Footwear Use : Verbalizes understanding Prevention Responsibility Patient : Verbalizes understanding Nighat Francis RN - 09/24/2019 9:29 EST Barriers to Learning : None evident Individuals Taught : Patient Readiness to Learn : Cooperative Teaching Method : Explanation Learning Style Preferences Family : None Learning Style Preferences Patient : None Nighat Francis RN - 09/24/2019 9:29 EST Education Topics, Day of Surgery DayofSurgery Education Grid Fall Risks : Verbalizes understanding Family Instructions : Verbalizes understanding Infection Control : Verbalizes understanding Infection Risks : Verbalizes understanding IV's : Verbalizes understanding Medication Instructions : Verbalizes understanding Pain Management : Verbalizes understanding Plan of Care : Verbalizes understanding Nighat Francis RN - 09/24/2019 9:29 EST Valuables and Belongings Valuables and Belongings : Clothing, Personal items Clothing : Common streetwear Clothing Disposition : With family Personal Items : Puentes, Cell phone, Credit cards, Purse Personal Items Disposition : With family Nighat Francis RN - 09/24/2019 9:29 EST Pain Scale Intensity : 0 Nighat Francis RN - 09/24/2019 9:29 EST Image 4 - Images currently included in the form version of this document have not been included in the text rendition version of the form. Dora Coma Dora Best Motor Response : Obey commands Dora Best Verbal Response : Oriented Dora Eye Opening Response : Spontaneous [place]od[place] Daisy Coma Score : 15 Nighat Francis RN - 09/24/2019 9:29 EST Electronically signed by [facility] Conversion Phys Asst Cerner at 12/24/2022 11:47 PM CDT documented in this encounter Plan of Treatment Upcoming Encounters Date Type Department Care Team (Late st Contact Info) Description 06/15/2025 3:00 PM EDT Appointment [address] [place] [address] 08/10/2025 1:15 PM EST Office Visit [place] [facility] - [address] [place] [phone] Ida Manzo MD [address] [place] [address] [address] [place] [address] documented as of this encounter Visit Diagnoses Not on filedocumented in this encounter Care Teams Dairy Equipment Mechanic Relationship Specialty Start Date End Date Ida Manzo MD [address] [place] [address] PCP - General Hematology and Oncology 10/13/22 documented as of this encounter
--- OUTSIDE RECORDS SUMMARY | 2025-06-12 13:03 | XMS_ITS | Encounter Summary ---
Author Organization [employer] ([place], [place], [place], [place]) Address [address] [place] [address] Care Team Providers Care Underwriting Clerks Supervisor Name Role Phone Ida Manzo MD Primary Care Provider Encounter Details Date Type Department Care Team (Late st Contact Info) Description 08/17/2019 Transcribed Document [facility] [place] Family Medicine [address] [place] [address] ProviderAdy MD [address] [place] [address] Social History Tobacco Use Types Packs/Day Years Used Date Smoking Tobacco: Never Assessed Comments Unknown Sex and Gender Information Value Date Recorded Sex Assigned at Not on file Legal Sex Female 6:39 PM CDT Gender Identity Not on file Sexual Orientation Not on file documented as of this encounter Miscellaneous Notes * Cerner Conversion Note - Ady ProviderMD - 08/17/2019 12:23 PM SENIOR CLERK [place] Suicide Severity Rating Scale (C-SSRS) Entered On: 08/17/2019 15:34 EST Performed On: 08/17/2019 13:32 EST by Rae Cohn RN [place] Suicide Severity Rating Scale (C-SSRS) CSSRS Past Month Wish to be : No CSSRS Past Month Suicidal Thoughts : No CSSRS Lifetime Suicide Behavior : No Suicide Severity Rating Score : 0 Suicide Severity Rating : No Additional Care Required at this time Rae Cohn RN - 08/17/2019 15:32 EST Electronically signed by Pato Jovel Conversion Blood Bank Laboratory Technician Cerner at 12/24/2022 11:32 PM CDT documented in this encounter Plan of Treatment Upcoming Encounters Date Type Department Care Team (Late st Contact Info) Description 06/15/2025 3:00 PM EDT Appointment [facility] [address] [facility] [address] [place] [address] 08/10/2025 1:15 PM EST Office Visit [place] [facility] - Vicki [facility] VICKI [facility] [address] [place] [phone] Ida Manzo MD [address] [place] [address] [address] [place] [address] documented as of this encounter Visit Diagnoses Not on filedocumented in this encounter Care Teams Underwriting Clerks Supervisor Relationship Specialty Start Date End Date Ida Manzo MD [address] [facility] [address] [place] [address] PCP - General Hematology and Oncology 10/13/22 documented as of this encounter
--- OUTSIDE RECORDS SUMMARY | 2025-06-12 13:03 | XMS_ITS | Encounter Summary ---
Author Organization [employer] ([place], [place], [place], [place]) Address [address] [place] [address] Care Team Providers Care Corrective And Manual Arts Therapist Name Role Phone Ida Manzo MD Primary Care Provider Encounter Details Date Type Department Care Team (Late st Contact Info) Description 08/17/2019 Transcribed Document [facility] [place] Family Medicine [facility] [place] [address] ProviderAdy MD [address] [place] [id number] Social History Tobacco Use Types Packs/Day Years Used Date Smoking Tobacco: Never Assessed Comments Unknown Sex and Gender Information Value Date Recorded Sex Assigned at Not on file Legal Sex Female 6:39 PM CDT Gender Identity Not on file Sexual Orientation Not on file documented as of this encounter Miscellaneous Notes * Cerner Conversion Note - Ady Casillas MD - 08/17/2019 3:44 PM BOTTOM PRECIPITATOR OPERATOR ED Discharge Entered On: 08/17/2019 15:44 EST Performed On: 08/17/2019 15:44 EST by Rae Cohn, senior database programmer Process Patient Disposition : Discharge Personal Belongings With Patient : Yes Patient Education Completed : Yes Teaching Evaluation : Verbalizes understanding IV Discontinued : Yes Nursing Documentation Completed : Yes Rae Cohn, RN - 08/17/2019 15:44 EST ED Discharge Discharge To : Home without planned follow-up Mode Of Departure : Private vehicle Accompanied By : Spouse Discharge Instructions Reviewed With, Opportunity For Questions Given : Patient Prescriptions Given to Patient : Yes Number of Prescriptions Given : 1 Medications Given to Patient : Yes Rae Cohn, RN - 08/17/2019 15:44 EST Electronically signed by [facility] Conversion Rack Pusher Cerner at 12/24/2022 11:39 PM CDT documented in this encounter Plan of Treatment Upcoming Encounters Date Type Department Care Team (Late st Contact Info) Description 06/15/2025 3:00 PM EDT Appointment [address] [place] [address] 08/10/2025 1:15 PM EST Office Visit [facility] [place] [address] [place] [id number] Ida Manzo MD [facility] [facility] [address] [place] [phone] documented as of this encounter Visit Diagnoses Not on filedocumented in this encounter Care Teams Corrective And Manual Arts Therapist Relationship Specialty Start Date End Date Ida Manzo MD [facility] [facility] [address] [place] [address] PCP - General Hematology and Oncology 10/13/22 documented as of this encounter
--- OUTSIDE RECORDS SUMMARY | 2025-06-12 13:04 | XMS_ITS | Encounter Summary ---
Author Organization [employer] ([place], [place], [place], [place]) Address [address] [place] [address] Care Team Providers Care Cement Cutter Name Role Phone Ida Manzo MD Primary Care Provider [phone] Encounter Details Date Type Department Care Team (Late st Contact Info) Description 05/03/2020 Transcribed Document [facility] [place] [facility] [place] [address] ProviderAdy MD [address] [place], [place] [id number] Social History Tobacco Use Types Packs/Day Years Used Date Smoking Tobacco: Never Assessed Comments Unknown Sex and Gender Information Value Date Recorded Sex Assigned at Not on file Legal Sex Female 6:39 PM CDT Gender Identity Not on file Sexual Orientation Not on file documented as of this encounter Miscellaneous Notes * Cerner Conversion Note - Ady ProviderMD - 05/03/2020 9:14 AM CDT Pre Procedure Adult Entered On: 05/03/2020 9:17 EDT Performed On: 05/03/2020 9:14 EDT by Katelyn Adair RN Height and Weight, Clinical Dosing Height Source : Stated Height Entry Format : [place] Height, Feet : 5 ft(Converted to: 152 cm, 60 Inch) Height, Inches : 7 Inch(Converted to: 0 ft 7 Inch, 17.78 cm) Clinical Height : 170.18 cm Weight Source : Standing scale Weight Entry Format : [place] Clinical Dosing Weight : 57.27 kg Weight, Pounds : 126 lb Body Surface Area (BSA) : 1.66 m2 Body Mass Index : 19.8 kg/m2 [place] Body Weight : 61 kg Katelyn Adair RN - 05/03/2020 9:14 EDT Health Histories Smoking Status : Never (less than 100 in lifetime; none in last 30 days) Smokeless Tobacco Status : Never Implant/Device Type, Locomotive Operator Helper and Model : left chest wall port, bilateral breast augmentation Katelyn Adair RN - 05/03/2020 9:14 EDT Social History (As Of: 05/03/2020 09:17:44 EDT) Tobacco: Never (less than 100 in lifetime) Smoking Status. (Last Updated: 05/02/2019 11:00:34 EDT by JAC LERNER RN) Alcohol: Alcohol Use History No. (Last Updated: 05/02/2019 11:00:38 EDT by JAC LERNER RN) Substance Abuse: Drug Use Hx: No. Use in Last 12 Months: No. (Last Updated: 05/02/2019 11:00:42 EDT by JAC LERNER RN) Infectious Disease History Has the patient ever been tested for COVID-19? : No, Patient stated Does patient have symptoms of COVID-19? : No COVID19 Screening : No Experiencing Infectious Disease Symptoms : No symptoms Physical contact outside [place] in the last 30 days : No Infectious Disease History : Chicken pox/Shingles Tuberculosis Symptoms : None Katelyn Adair RN - 05/03/2020 9:14 EDT COVID19 PreProcedure Screening Is this an Emergent or Add on Procedure? : Yes Katelyn Adair RN - 05/03/2020 9:14 EDT Anesthesia/Transfusion History Family History of Anesthesia Reaction : Prior transfusion without reaction Blood Transfusion Acceptable to Patient : Yes Transfusion History : Prior anesthesia without reaction Family History of Anesthesia Reaction : None Katelyn Adair RN - 05/03/2020 9:14 EDT Functional Assessment Living Situation : Home Patient Lives With : Spouse Current Home Treatments : None Katelyn Adair RN - 05/03/2020 9:14 EDT Page Suicide Severity Rating Scale (C-SSRS) CSSRS Past Month Wish to be : No CSSRS Past Month Suicidal Thoughts : No CSSRS Lifetime Suicide Behavior : No Suicide Severity Rating Score : 0 Suicide Severity Rating : No Additional Care Required at this time Katelyn Adair RN - 05/03/2020 9:14 EDT Psychosocial History Currently in Unsafe Situation : No Katelyn Adair RN - 05/03/2020 9:14 EDT Advance Directive Patient has Advance Directive *Q : No, patient refuses Advance Directive information Katelyn Adair RN - 05/03/2020 9:14 EDT Teaching/Learning Assessment Barriers To Learning : None evident Individuals Taught : Patient, Spouse Readiness to Learn : Explanation Learning Style Preferences Patient : Verbal explanation Learning Style Preferences Family : Verbal explanation Katelyn Adair RN - 05/03/2020 9:14 EDT Education Topics, Periop Preadmission Perioperative Education [place] : Verbalizes understanding Infection Control : Verbalizes understanding IV's : Verbalizes understanding NPO Status/Directions : Verbalizes understanding Pain Management : Verbalizes understanding Preprocedure Preparations : Verbalizes understanding Preprocedure Tests/Labs : Verbalizes understanding Katelyn Adair RN - 05/03/2020 9:14 EDT General Info Arrived From : Home Mode of Arrival on Unit : Ambulatory Patient Arrival Date/Time : 05/03/2020 8:58 EDT Legal Guardian : Spouse Support Person/Pt Rep Name : Eric Pollack [phone] Want Family/Rep/Phys Notified of Admit : No Emergency Contact #1 : NA Emergency Contact #1 Phone Number : NA Emergency Contact #1 Relationship : NA Emergency Contact #2 : NA Emergency Contact #2 Phone Number : NA Emergency Contact #2 Relationship : NA Information Obtained From : Patient Primary Language : Lithuanian Preferred Communication Mode : Verbal Communication Barrier : None Cloth Washer Operator Needed : No Katelyn Adair RN - 05/03/2020 9:14 EDT Vital Measurements Temperature Source : Temporal artery scanning Temperature Mode : Fahrenheit Temperature, Fahrenheit : 98.3 Deg F Clinical Temperature, C : 36.8 Deg C Peripheral Pulse Rate : 76 bpm Systolic Blood Pressure : 121 mmHg Diastolic Blood Pressure : 61 mmHg Oxygen Saturation : 100 % Oxygen Therapy Mode : Room air Katelyn Adair RN - 05/03/2020 9:14 EDT Sleep Apnea Risk Assmt Hx of Obstructive Sleep Apnea Diagnosis : No Snore Loudly : No Tired, Fatigued, or Sleepy During Day : No Observed Stopping Breathing During Sleep : No Have/Are Being Treated for Hypertension : No BMI Greater Than 35 kg/m2 : No Age over 50 Years Old : No Neck Circumference Greater Than 40 cm : No Gender Male : No STOP-BANG Sleep Apnea Risk Level Score : 0 Katelyn Adair RN - 05/03/2020 9:14 EDT Rogelio Scale Rogelio Sensory Perception : No impairment Rogelio Moisture : Rarely moist Rogelio Activity : Walks frequently Rogelio Mobility : No limitation Rogelio Nutrition : Excellent Rogelio Friction and Shear : No apparent problem Rogelio Score : 23 Katelyn Adair RN - 05/03/2020 9:14 EDT Pain Assessment Pain Assessment : Initial assessment Pain Scale Used : 0-10 Scale Katelyn Adair RN - 05/03/2020 9:14 EDT Fall Risk Scales ABCs Fall Injury Risk [...] Scale Risk Level : 0-24 Low Risk [place] Fall Interventions : Adequate lighting, Bed in low position, Call device within reach, Hourly comfort/safety rounds, Non-slip footwear, Personal items within reach, Room free of clutter/spills, Upper side-rails up, Wheels locked, Wires/Cords secured Katelyn Adair RN - 05/03/2020 9:14 EDT Valuables and Belongings Valuables and Belongings : Clothing, Jewelry, Personal items Clothing : Common streetwear Clothing Disposition : Bedside, Declines to send to security/safe Jewelry : Earrings, Ring, Other: nose ring Jewelry Disposition : With patient, Declines to send to security/safe Personal Items : Cell phone, Purse Personal Items Disposition : With family, Declines to send to security/safe Katelyn Adair RN - 05/03/2020 9:14 EDT Pain Scale Intensity : 0 Katelyn Adair RN - 05/03/2020 9:14 EDT Image 4 - Images currently included in the form version of this document have not been included in the text rendition version of the form. documented in this encounter Plan of Treatment Upcoming Encounters Date Type Department Care Team (Late st Contact Info) Description 06/15/2025 3:00 PM EDT Appointment [facility] [address] [facility] [address] [place] [address] 08/10/2025 1:15 PM EST Office Visit [place] [facility] - Vicki [facility] [address] [facility] [address] [place] [address] Ida Manzo MD [address] [place] [address] [address] [place] [id number] documented as of this encounter Visit Diagnoses Not on filedocumented in this encounter Care Teams Cement Cutter Relationship Specialty Start Date End Date Ida Manzo MD [address] [place] [address] [address] [place] [address] PCP - General Hematology and Oncology 10/13/22 documented as of this encounter
--- OUTSIDE RECORDS SUMMARY | 2025-06-12 13:04 | XMS_ITS | Referral Summary ---
Author Organization [employer] ([place], [place], [place], [place]) Address [address] [place] [address] Care Team Providers Care Financial Data Analyst Name Role Phone Ida Manzo MD Primary Care Provider [phone] Encounters Date Type Department Care Team Description 05/28/2025 Telephone Home [facility] Oncology - [place] [address] [place] [phone] Ida Manzo MD Advice Only from Last 3 Months Allergies No known active allergies Medications * This document contains information received from the source organization and may not represent a complete record from that organization. busPIRone (BUSPAR) 10 MG tablet Take 1 tablet (10 mg total) by mouth 2 (two) times daily. 60 tablet 11 2 Active pantoprazole (PROTONIX) 40 MG tablet 3 Active famotidine (PEPCID) 20 MG tablet Take 1 tablet (20 mg total) by mouth 2 (two) times daily. 3 Active LORazepam (ATIVAN) 1 MG tablet Take 0.5-1 tablets (0.5-1 mg total) by mouth every 6 (six) hours as needed for Anxiety for up to 10 days. Max Daily Amount: 4 mg 20 tablet 1 3 Active ondansetron (ZOFRAN-ODT) 8 MG disintegrating tablet Take 1 tablet (8 mg total) by mouth 3 (three) times daily as needed. 30 tablet 2 3 Active tamoxifen (NOLVADEX) 20 MG tablet TAKE 1 TABLET BY MOUTH IN THE MORNING 90 tablet 3 4 Active fezolinetant (Veozah) 45 mg tabIndications:Hot flashes Take 45 mg by mouth daily For hot flashes.. 30 tablet 3 5 Active sertraline (ZOLOFT) 50 MG tablet Take 1 tablet (50 mg total) by mouth daily. 5 Active spironolactone (ALDACTONE) 50 MG tablet Take 1 tablet (50 mg total) by mouth daily. 5 Active ubrogepant (Ubrelvy) 100 mg tab Take 1 tablet by mouth as needed. 4 Active Social History Tobacco Use Types Packs/Day Years Used Date Smoking Tobacco: Never Smokeless Tobacco: Never Tobacco Cessation:Counseling Given: Not Answered Alcohol Use Standard Drinks/Week Comments Not Currently 0 (1 standard drink = 0.6 oz pur e alcohol) Family and Community Support Answer Agustin e Recorded Help with Day to Day Activities Not on file 09/20/2023 Feeling Lonely or Isolated Not on file 09/20 Educational Attainment Answer Date Aaron rded Speak language other than Polish at home Not on file 09/20/2023 Want help with school or training Not on file 09/20/2023 Substance Use Answer Date Recorded Used prescription meds for non-medical reasons N ot on file 09/20/2023 Used illegal drugs past 12 months Not on file 09/20/2023 Comments No Sex and Gender Information Value Date Recorded Sex Assigned at Not on file Legal Sex Female 6:39 PM CDT Gender Identity Not on file Sexual Orientation Not on file Last Filed Vital Signs Vital Sign Reading Time Taken Comments Blood Pressure 140/77 02/03/2025 2:47 PM EDT Pulse 82 02/03/2025 2:47 PM EDT Temperature 36.2 C (97.1 F) 02/03/2025 2:47 PM EDT Respiratory Rate 18 02/03/2025 2:47 PM EDT Oxygen Saturation 100% 02/03/2025 2:47 PM EDT Inhaled Oxygen Concentration - - Weight 52 kg (114 lb 11.2 oz) 02/03/2025 2:47 PM EDT Height 170.2 cm (5' 7 ) 02/03/2025 2:47 PM EDT Body Mass Index 17.96 02/03/2025 2:47 PM EDT Plan of Treatment Upcoming Encounters Date Type Department Care Team (Late st Contact Info) Description 06/15/2025 3:00 PM EDT Appointment [facility] [address] [facility] [address] [place] [address] 08/10/2025 1:15 PM EST Office Visit Home Hematology Oncology - [place] [address] [place] [address] Ida Manzo MD [address] [place] [address] Procedures Procedure Name Priority Date/Time Associated Diagnosis Comments HEPATITIS PANEL, ACUTE Routine 10/23/2019 9:05 AM EST HIV-1,2 COMBO AG/AB, W/REFLEX(SENDOUT) Routine 10/23/2019 9:05 AM EST from Last 3 Months or Most Recently Relevant to Health Maintenance Results * HIV-1,2 Combo Ag/Ab, w/Reflex(SENDOUT) (10/23/2019 9:05 AM EST) HIV1/2p24 AG/AB COMBO Non Reactive Non Reactive 10/23/2019 7:44 PM EST Comment:Biotin supplements c an cause clinically significant incorrect lab results. The FDA has seen an increase in the number of adverse events related to biotin interference with lab tests. Blood 10/23/2019 9:05 AM EST 10/23/2019 5:15 PM EST us Sle Historical Provider LAB BLOOD ORDERABLES Fi nal Result [facility] [address] [place] [address], [facility] [phone] * Hepatitis panel, acute (10/23/2019 9:05 AM EST) Hep A IgM AB Non Reactive 10/23/2019 6:52 PM EST Comment: (a) A negative test result does not exclude the possibility of exposure to the hepatitis A virus. (b) This test can be used to determine if a patient has or recently had an acute or asymptomatic hepatitis A infection. (c) A reactive result does not exclude co-infection by another hepatitis virus. Biotin supplements can cause clinically significant incorrect lab results. The FDA has seen an increase in the number of reported adverse events related to biotin interference with lab tests. Hep B Surf AG Non Reactive 0 6:52 PM EST Comment:Biotin supplements c an cause clinically significant incorrect lab results. The FDA has seen an increase in the number of adverse events related to biotin interference with lab tests. Hep B Core Non Reactive Non Reactive 10/23/2019 6:52 PM EST Hep C AB Non Reactive 10/23/2019 6:52 PM EST Comment:Biotin supplements c an cause clinically significant incorrect lab results. The FDA has seen an increase in the number of adverse events realted to biotin interference with lab tests. Blood 10/23/2019 9:05 AM EST 10/23/2019 5:15 PM EST [facility] Historical Provider LAB BLOOD ORDERABLES Fi nal Result Performing Organization Address City/State/[facility] Co de Phone Number [facility] [address] [phone] from Last 3 Months or Most Recently Relevant to Health Maintenance Insurance BLUE CROSS/BLUE [employer]IELD Care Teams Financial Data Analyst Relationship Specialty Start Date End Date Ida Manzo MD [address] [place] [address] PCP - General Hematology and Oncology 10/13/22
--- OUTSIDE RECORDS SUMMARY | 2025-06-12 13:04 | XMS_ITS | Encounter Summary ---
Author Organization [employer] ([place], [place], [place], [place]) Address [address] [place] [address] Care Team Providers Care Harness Fitter Name Role Phone Ida Manzo MD Primary Care Provider [phone] Reason for Referral * MRI (Routine) - Closed Specialty Diagnoses / Procedures Referred By Contac t Referred To Contact Radiology Diagnoses Malignant neoplasm of lower-outer quadrant of right female breast, unspecified estrogen receptor status (HCC) Procedures MR breast without & with IV contrast Travis Small MD [address] [place] [address] Phone: tel: fax: [facility] [address] [place] [address] Phone: tel: fax: Referral ID Status Reason Start Date Expiration Date Visits Re quested Visits Authorized [id number] Closed 05/28/2022 11/24/2022 1 1 Encounter Details Date Type Department Care Team (Late st Contact Info) Description 05/28/2022 Outside Orders [facility] Central Scheduling [address] [place] [id number] Travis Small MD [address] [place] [address] Malignant neoplasm of lower-outer quadrant of right female breast, unspecified estrogen receptor status (HCC) (Primary Dx) Social History Tobacco Use Types Packs/Day Years Used Date Smoking Tobacco: Never Assessed Comments Unknown Sex and Gender Information Value Date Recorded Sex Assigned at Not on file Legal Sex Female 6:39 PM CDT Gender Identity Not on file Sexual Orientation Not on file documented as of this encounter Plan of Treatment Upcoming Encounters Date Type Department Care Team (Late st Contact Info) Description 06/15/2025 3:00 PM EDT Appointment Breast Care [address] [facility] [address] [place] [id number] 08/10/2025 1:15 PM EST Office Visit [facility] - [facility] [address] [place] [address] [address] [place] [phone] Ida Manzo MD [address] [facility] [address] [place] [address] documented as of this encounter Results * MR breast without & with IV contrast (10/13/2022 11:10 AM EST) Anatomical Region Laterality Modality Bilateral Magnetic Resonan ce (MRI) 10/16/2022 7:02 PM EST Narrative 10/19/2022 6:18 PM EST PROCEDURE: Contrast enhanced MR of both breasts. REASON FOR EXAM: 32-year-old female with a history of conservation therapy on the right in 2019. The exam is an intermediate risk screening breast MRI. COMPARISON STUDIES: Prior mammograms, most recently 04/27/2022. Prior MRIs 11/02/2021, 04/25/2021, 11/03/2020 TECHNICAL FACTORS: EQUIPMENT: 1.5 [employer] Sign[employer] Excite with 7 channel Invivo dedicated breast coil. SEQUENCES: FSE T2 fat suppressed, non fat suppressed T1,3D gradient echo fat suppressed dynamic sequence (one pre and 4 post contrast). All obtained in axial plane. POST PROCESSING: Maximum Intensity projections (MIP), sagittal reconstructions, subtraction images, parametric images, and kinetic analysis (utilizing IEMO software) CONTRAST: 15 mL of Dotarem were administered intravenously without complications. FINDINGS: Adequate contrast bolus was achieved. Background enhancement is mild. Bilateral implants are again noted. The initial examination was extremely suboptimal due to lack of fat saturation as well as some motion on the postcontrast dynamic examination. The dynamic postcontrast part of the examination was therefore repeated on 10/19/2022. Right breast: There is again enhancement at the 1:00 position superiorly in the surgical bed which is slightly more prominent than on the examination last year. However, this is likely due to the interval biopsy. The biopsy clip is seen with in the center of the enhancement. No other enhancing abnormality is seen in the right breast. Left breast: No suspicious findings are seen on the left. FINAL ASSESSMENT: ACR BI-RADS 2: Benign findings. RECOMMENDATION: Continued yearly mammography and yearly breast MRI A negative breast MRI has high sensitivity and moderate specificity for detecting or excluding invasive carcinomas to a size threshold of 4-5 mm. MR may not detect some cases of DCIS or less angiogenic invasive tumors. Therefore, MR should not be used to exclude DCIS. If there are suspicious calcifications or worrisome masses, then biopsy should still be considered. Normal appearing lymph nodes may contain microscopic tumor. Due to the differences in positioning for MRI, ultrasound, and mammography, location of findings may differ among these studies. CC: Procedure Note Stephanie Durant MD - 10/19/2022 PROCEDURE: Contrast enhanced MR of both breasts. REASON FOR EXAM: 32-year-old female with a history of conservation therapy on the right in 2019. The exam is an intermediate risk screening breast MRI. COMPARISON STUDIES: Prior mammograms, most recently 04/27/2022. Prior MRIs 11/02/2021, 04/25/2021, 11/03/2020 TECHNICAL FACTORS: EQUIPMENT: 1.5 [employer] MobiCarte with 7 channel Invivo dedicated breast coil. SEQUENCES: FSE T2 fat suppressed, non fat suppressed T1,3D gradient echo fat suppressed dynamic sequence (one pre and 4 post contrast). All obtained in axial plane. POST PROCESSING: Maximum Intensity projections (MIP), sagittal reconstructions, subtraction images, parametric images, and kinetic analysis (utilizing IEMO software) CONTRAST: 15 mL of Dotarem were administered intravenously without complications. FINDINGS: Adequate contrast bolus was achieved. Background enhancement is mild. Bilateral implants are again noted. The initial examination was extremely suboptimal due to lack of fat saturation as well as some motion on the postcontrast dynamic examination. The dynamic postcontrast part of the examination was therefore repeated on 10/19/2022. Right breast: There is again enhancement at the 1:00 position superiorly in the surgical bed which is slightly more prominent than on the examination last year. However, this is likely due to the interval biopsy. The biopsy clip is seen with in the center of the enhancement. No other enhancing abnormality is seen in the right breast. Left breast: No suspicious findings are seen on the left. FINAL ASSESSMENT: ACR BI-RADS 2: Benign findings. RECOMMENDATION: Continued yearly mammography and yearly breast MRI A negative breast MRI has high sensitivity and moderate specificity for detecting or excluding invasive carcinomas to a size threshold of 4-5 mm. MR may not detect some cases of DCIS or less angiogenic invasive tumors. Therefore, MR should not be used to exclude DCIS. If there are suspicious calcifications or worrisome masses, then biopsy should still be considered. Normal appearing lymph nodes may contain microscopic tumor. Due to the differences in positioning for MRI, ultrasound, and mammography, location of findings may differ among these studies. CC: us Travis Small MD IMG MRI ORDERABLES Final Res ult documented in this encounter Visit Diagnoses Diagnosis Malignant neoplasm of lower-outer quadrant of right female breast, unspecified estrogen receptor status (HCC)- Primary Malignant neoplasm of lower-outer quadrant of right female breast, unspecified estrogen receptor status (HCC) documented in this encounter Care Teams Harness Fitter Relationship Specialty Start Date End Date Ida Manzo MD [address] [place] [address] PCP - General Hematology and Oncology 10/13/22 documented as of this encounter
--- OUTSIDE RECORDS SUMMARY | 2025-06-12 13:04 | XMS_ITS | Encounter Summary ---
Author Organization [email or web address] ([place], [place], [place], [place]) Address [address] [place] [address] Care Team Providers Care Environmental Technician Name Role Phone Ida Manzo MD Primary Care Provider [phone] Reason for Visit * Reason Onset Date Comments Advice Only 05/28/2025 Encounter Details Date Type Department Care Team (Late st Contact Info) Description 05/28/2025 Telephone [facility] - [facility] [address] [facility] [address] [place] [phone] Ida Manzo MD [address] [facility] [address] [place] [address] Advice Only Social History Tobacco Use Types Packs/Day Years Used Date Smoking Tobacco: Never Smokeless Tobacco: Never Alcohol Use Standard Drinks/Week Comments Not Currently 0 (1 standard drink = 0.6 oz pur e alcohol) Family and Community Support Answer Agustin e Recorded Help with Day to Day Activities Not on file 09/20/2023 Feeling Lonely or Isolated Not on file 09/20 Educational Attainment Answer Date Aaron rded Speak language other than Finnish at home Not on file 09/20/2023 Want [...] as of this encounter Miscellaneous Notes * Telephone Encounter - Clint Armendariz RN - 05/28/2025 3:21 PM EDT Yes please, last order has in April. * Telephone Encounter - Clint Armendariz RN - 05/28/2025 2:11 PM EDT Pt is wondering if it is possible for her to have her mammogram scheduled with [facility], she works there. She has been unable to get her mammogram done because she has been unable to take off due to their short staffing. documented in this encounter Plan of Treatment Upcoming Encounters Date Type Department Care Team (Late st Contact Info) Description 06/15/2025 3:00 PM EDT Appointment [facility] Breast [facility] [address] [facility] [address] [place] [address] 08/10/2025 1:15 PM EST Office Visit [facility] [address] [place] [address] Ida Manzo MD [address] [place] [address] [address] [place] [address] documented as of this encounter Visit Diagnoses Diagnosis History of breast cancer- Primary Personal history of malignant neoplasm of breast documented in this encounter Care Teams Environmental Technician Relationship Specialty Start Date End Date Ida Manzo MD [address] [place] [address] [address] [place] [address] PCP - General Hematology and Oncology 10/13/22 documented as of this encounter
--- OUTSIDE RECORDS SUMMARY | 2025-06-12 13:04 | XMS_ITS | Encounter Summary ---
Author Organization [employer] ([place], [place], [place], [place]) Address [address] [place] [address] Care Team Providers Care Small Business Sales Representative Name Role Phone Ida Manzo MD Primary Care Provider [phone] Encounter Details Date Type Department Care Team (Late st Contact Info) Description 05/06/2020 Transcribed Document [facility] Family Medicine [facility] [place] [address] ProviderAdy MD [address], [place] [id number] Social History Tobacco Use Types Packs/Day Years Used Date Smoking Tobacco: Never Assessed Comments Unknown Sex and Gender Information Value Date Recorded Sex Assigned at Not on file Legal Sex Female 6:39 PM CDT Gender Identity Not on file Sexual Orientation Not on file documented as of this encounter Miscellaneous Notes * [employer]ner Conversion Note - Ady ProviderMD - 05/06/2020 9:26 AM CDT HISTORY AND PHYSICAL UPDATE Update Required: The appropriate section below MUST be completed prior to authentication. XXXX UPDATE: The History and Physical performed by Zoila Cheema on 04-29-2020 has been reviewed, patient was examined, and no change has occurred since the History and Physical was completed. OR UPDATE: The History and Physical performed by on has been reviewed and patient examined. The only significant change(s) in the patient's history or condition since the History and Physical was completed are indicated below: Significant Changes: documented in this encounter Plan of Treatment Upcoming Encounters Date Type Department Care Team (Late st Contact Info) Description 06/15/2025 3:00 PM EDT Appointment [facility] Breast [facility] [address] [facility] [address] [place] [address] 08/10/2025 1:15 PM EST Office Visit [facility] - [facility] [address] [facility] [address] [place] [phone] Ida Manzo MD [address] [place] [address] [address] [place] [id number] documented as of this encounter Visit Diagnoses Not on filedocumented in this encounter Care Teams Small Business Sales Representative Relationship Specialty Start Date End Date Ida Manzo MD [address] [place] [address] [address] [place] [address] PCP - General Hematology and Oncology 10/13/22 documented as of this encounter
--- OUTSIDE RECORDS SUMMARY | 2025-06-12 13:04 | XMS_ITS | Encounter Summary ---
Author Organization [facility] ([place], [place], [place], [place]) Address [address] [place] [address] Care Team Providers Care Bookkeeper Name Role Phone Ida Manzo MD Primary Care Provider [phone] Encounter Details Date Type Department Care Team (Late st Contact Info) Description 05/02/2019 Transcribed Document [facility] [place] [address] ProviderAdy MD [address] [place] [address] Social History Tobacco Use Types Packs/Day Years Used Date Smoking Tobacco: Never Assessed Comments Unknown Sex and Gender Information Value Date Recorded Sex Assigned at Not on file Legal Sex Female 6:39 PM CDT Gender Identity Not on file Sexual Orientation Not on file documented as of this encounter Miscellaneous Notes * Cerner Conversion Note - Ady ProviderMD - 05/02/2019 3:12 PM CDT [facility] [address] [place] [id number] ARAM POLLACK :1990 Visit Time:05/02/2019 What to do next Your Diagnosis Malignant neoplasm of unspecified site of unspecified female breast, Malignant neoplasm of unspecified site of unspecified female breast Instructions From Your Care Team Diet after Discharge: Resume usual diet as tolerated, Do not drink any alcoholic beverages, Drink at least 8-10 glasses of water per day Activity after Discharge: _, Rest and relax today, No strenuous activity no overhead work for 1 week Lifting Restrictions: No heavy lifting over 10 pounds 1 week Driving after Discharge: Do not drive until 24 hours after no longer taking pain medications Showering/Bathing: May shower 2 days, No tub bathing, soaking or swimming Notify Provider of: fever or chills , excessive pain swelling or loss of sensation Wound/Incision Care after Discharge: Keep operative site/wound site clean and dry, remiove dressing in 2 days Medical Equipment for Home Use: ice pack 20 min every hour as needed for 2 days Follow-Up Appointments Follow Up with JULIA RAY When 05/05/2019 08:00 AM EDT Comments f/u with Steven Santiago in office sunday for wound check Where: [address] [place] [address] [place] [address]- Business (1) Medications What How Much When Instructions Next Dose acetaminophen-hydrocodone (acetaminophen-HYDROcodone 325 mg-5 mg oral tablet) 1-2 tabs Oral Every 6 Hours as needed for for pain Printed Prescription busPIRone (busPIRone 10 mg oral tablet) 1 Tablet(s) Oral Two Times A Day cetirizine (ZyrTEC 10 mg oral tablet) 1 Tablet(s) Oral Every Day LORazepam (LORazepam 0.5 mg oral tablet) 1 Tablet(s) Oral Three Times A Day multivitamin Every Day sertraline (sertraline 100 mg oral tablet) 1 Tablet(s) Oral Every Day Take your medications faithfully. [...] and medications per pharmacy guidance. Education Materials Outpatient Surgery, Adult, Care After These instructions provide you with information about caring for yourself after your procedure. Your health care provider may also give you more specific instructions. Your treatment has been planned according to current medical practices, but problems sometimes occur. Call your health care provider if you have any problems or questions after your procedure. What can I expect after the procedure? After the procedure, it is common to have: ??? Tenderness and numbness at the surgical site. ??? Swelling and bruising around the surgical site. ??? Nausea. Follow these instructions at home: For at [...] Take care of children on your own. Activity ??? Return to your normal activities as told by your health care provider. Ask your health care provider what activities are safe for you. ??? Do not lift anything that is heavier than 10 lb (4.5 kg), or the limit that your health care provider tells you, until your health care provider says it is okay. ??? Do not play contact sports until your health care provider says it is okay. Incision care ??? Follow instructions from your health care provider about how to take care of an incision, if you have one. Make sure you: ? Wash your hands with soap and water before you change your bandage (dressing). If soap and water are not available, use hand lead burner helper. ? Change your dressing as told by [...] Warmth. ? Pus or a bad smell. Medicines ??? Take erno-uax-hqbbsle and prescription medicines only as told by your health care provider. ??? Do not drive or use heavy machinery while taking prescription pain medicines. Eating and drinking ??? Follow the diet recommended by your health care provider. ??? When you are hungry, begin eating light and bland foods such as toast. Gradually return to your regular diet. ??? If you vomit: ? Drink water, juice, or soup when you can drink without vomiting. ? Make sure you have little or no nausea before eating solid foods. General instructions ??? If you have sleep apnea, surgery and certain medicines can increase your risk for breathing problems. Follow instructions from your HCP about wearing your sleep device: ? Anytime you are sleeping, including during daytime naps. ? While taking prescription pain medicines, sleeping medicines, or medicines that make you drowsy. ??? Do not use any tobacco products, such as cigarettes, chewing tobacco, and e-cigarettes, for as long as possible. ??? If you smoke, do not smoke without supervision. ??? Keep all follow-up visits as told by your health care provider. This is important. Contact a health care provider if: ??? You have more redness, swelling, or pain around your incision. ??? You have more fluid or blood coming from your incision. ??? Your incision feels warm to the touch. ??? You have pus or a bad smell coming from your incision. ??? You have a fever. ??? You feel light-headed or you faint. ??? You develop a rash. ??? You keep feeling nauseous or keep vomiting. ??? You have very bad pain, even after taking the medicines your health care provider has prescribed or recommended. ??? You have constipation. Get help right away if: ??? You are unable to pass urine. ??? You have trouble breathing. Summary ??? Have a responsible adult stay with you for at least 24 hours after the procedure. ??? Nausea is common after a procedure. Make sure you have little or no nausea before eating solid foods. Follow the diet recommended by your health care provider. ??? Ask your health care provider what activities are safe for you. This information is not intended to replace advice given to you by your health care provider. Make sure you discuss any questions you have with your health care provider. Document Released: 12/17/2016 Document Revised: 04/04/2018 Document Reviewed: 12/17/2016 [employer] Patient Education ?? 2019 [employer]. acetaminophen and hydrocodone (a SEET a MIN oh fen and ravi droe KOE done) Hycet, Lorcet, Enfield, Verdrocet, Vicodin, Xodol, Zamicet What is the most important information I should know about acetaminophen and hydrocodone? MISUSE OF OPIOID MEDICINE CAN CAUSE ADDICTION, [...] blistering and peeling. What is acetaminophen and hydrocodone? Hydrocodone is an opioid pain medication, sometimes called a narcotic. Acetaminophen is a less potent pain reliever that increases the effects of hydrocodone. Acetaminophen and hydrocodone is a combination medicine used to relieve moderate to severe pain. Acetaminophen and hydrocodone may also be used for purposes not listed in this medication guide. What should I discuss with my healthcare provider before taking acetaminophen and hydrocodone? You should not use this medicine if you are allergic to acetaminophen or hydrocodone, or if you have: ?? severe asthma [...] baby. How should I take acetaminophen and hydrocodone? Follow all directions on your prescription label. Never take this medicine in larger amounts, or for longer than prescribed. An overdose can damage your liver or cause . Tell your doctor if the medicine seems to stop working as well in relieving your pain. Always check your bottle to make sure you have received the correct pills (same brand and type) of medicine prescribed by your doctor. Never share this medicine with another person, especially someone with a history of drug abuse or addiction. MISUSE CAN CAUSE ADDICTION, OVERDOSE, OR . Keep the medicine in a place where others cannot get to it. Selling or giving away acetaminophen and hydrocodone is against the law. Measure liquid medicine [...] at . An overdose of acetaminophen and hydrocodone can be fatal. The first signs of [...] should I avoid while taking acetaminophen and hydrocodone? Avoid driving or operating machinery until you [...] the possible side effects of acetaminophen and hydrocodone? Get emergency medical help if you have [...] feeling, like you might pass out; ?? liver problems--nausea, upper stomach pain, tiredness, [...] include: ?? dizziness, drowsiness, feeling tired; ?? nausea, vomiting, stomach pain; ?? constipation; or ?? headache. This is not a complete list of side effects and others may occur. Call your doctor for medical advice about side effects. You may report side effects to FDA at 0-569-WHR-1249. What other drugs will affect acetaminophen and hydrocodone? You may have breathing problems or withdrawal [...] complete. Other drugs may affect acetaminophen and hydrocodone, including prescription and xvsu-lal-pjlngiu medicines, vitamins, and herbal products. Not all possible interactions are listed here. Where can I get more information? Your doctor or pharmacist can provide more information about acetaminophen and hydrocodone. Remember, keep this and all other medicines out of the reach of children, never share your medicines with others, and use this medication only for the indication prescribed. Every effort has been made to ensure that the information provided by [employer]') is accurate, up-to-date, and complete, but no guarantee is made to that effect. Drug information contained herein may be time sensitive. [facility] information has been compiled for use by healthcare practitioners and consumers in the [place] and therefore [facility] does not warrant that uses outside of the [place] are appropriate, unless specifically indicated otherwise. [employer] drug information does not endorse drugs, diagnose patients or recommend therapy. [employer] drug information is an informational resource designed [...] effective or appropriate for any given patient. [facility] does not assume any responsibility for any aspect of healthcare administered with the aid of information [facility] provides. The information contained herein is not intended to cover all possible uses, directions, precautions, warnings, drug interactions, allergic reactions, or adverse effects. If you have questions about the drugs you are taking, check with your doctor, nurse or pharmacist. Copyright 5686-6635 [employer] Version: 15.02. Revision Date: 07/15/2018. Emergency Awareness and Preventative Care STROKE is [...] Assistance with quitting is available by contacting 9-596-AMJA-NOW. This is a free resource providing counseling, [...] This Visit (last charted value for your 05/02/2019 visit) Diagnostic Radiology 05/02/19 13:39:00 CR Chest 1 Vw Portable: CR Chest 1 Vw Portable 05/02/19 12:50:00 CR Fluoro in OR: CR Fluoro in OR Patient Name:ARAM POLLACK I have received this information and was given the opportunity to ask questions. Patient/Education Analyst Name: Patient/Education Analyst Signature: Relationship to Patient: Clinician/Hospital Education Analyst Signature: Date: documented in this encounter Plan of Treatment Upcoming Encounters Date Type Department Care Team (Late st Contact Info) Description 06/15/2025 3:00 PM EDT Appointment [address] [place] [address] 08/10/2025 1:15 PM EST Office Visit [facility] [place] [address] [place], [place] [address] [address] [place] [phone] Ida Manzo MD [address] [place] [address] [address] [place] [address] documented as of this encounter Visit Diagnoses Not on filedocumented in this encounter Care Teams Bookkeeper Relationship Specialty Start Date End Date Ida Manzo MD [address] [place] [address] [address] [place] [phone] PCP - General Hematology and Oncology 10/13/22 documented as of this encounter
--- OUTSIDE RECORDS SUMMARY | 2025-06-12 13:04 | XMS_ITS | Encounter Summary ---
Author Organization [email or web address] ([place], [place], [place], [place]) Address [address] [place] [address] Care Team Providers Care Feed Mill Operator Name Role Phone Ida Manzo MD Primary Care Provider [phone] Encounter Details Date Type Department Care Team (Late st Contact Info) Description 05/03/2020 Transcribed Document [facility] [place] [place] [facility] [place] [address] ProviderAdy MD [address] [place] [address] Social History Tobacco Use Types Packs/Day Years Used Date Smoking Tobacco: Never Assessed Comments Unknown Sex and Gender Information Value Date Recorded Sex Assigned at Not on file Legal Sex Female 6:39 PM CDT Gender Identity Not on file Sexual Orientation Not on file documented as of this encounter Miscellaneous Notes * Cerner Conversion Note - Ady Casillas MD - 05/03/2020 11:38 AM CDT [facility] [address] [place] [id number] ARAM POLLACK :1990 Visit Time:05/03/2020 Your Visit Summary Your Care Team Admitting Physician - HEMA PASTRANA, ENGINEHOUSE BRAKEMAN-MED Attending Physician - HEMA PASTRANA ENGINEHOUSE BRAKEMAN-MED Primary Care Physician - KATHRYN KIM (REF)MD Referring Physician - HEMA PASTRANA ENGINEHOUSE BRAKEMAN-TIFFANIE Discharge Vitals Temperature 36.8 ??C Heart Rate (Monitored) 72 Respiratory Rate 17 Blood Pressure 118/64 What to do next Instructions From Your Care Team Diet after Discharge: Resume usual diet as tolerated Activity after Discharge: As tolerated, Rest and relax today Driving after Discharge: Do not drive for 24 hours May Return to Work/School: Showering/Bathing: May shower in 24 hours, Cover site with saran wrap and tape when showering for 1 week Notify Provider of: Monitor site for infection and bleeding Wound/Incision Care after Discharge: Remove tegaderm dressing in 3 days, Steri-strips and dermabond will come off on its own over the next few weeks, do not pick or pull at it Follow-Up Appointments Follow Up with HEMA PASTRANA APRN-MED When Within As needed Where: Medications What How Much When Instructions Next Dose venlafaxine (Effexor XR) 150 Milligram(s) Oral At Bedtime busPIRone (busPIRone 10 mg oral tablet) 1 Tablet(s) Oral Two Times A Day cetirizine (ZyrTEC 10 mg oral tablet) 1 Tablet(s) Oral Every Day as needed for as needed for allergy symptoms LORazepam (LORazepam 0.5 mg oral tablet) 1 Tablet(s) Oral Three Times A Day as needed for as needed for anxiety multivitamin 1 Tablet(s) Oral Every Day tamoxifen 10 Milligram(s) Oral At Bedtime Continue all medications as normal Take your medications faithfully. Do NOT skip [...] Please dispose of unused and medications per your retail pharmacy guidance. Allergies No Known Medication Allergies Immunizations This Visit No Immunizations Found Education Materials Implanted Port Removal, Care After This sheet gives you information about how to care for yourself after your procedure. Your health care provider may also give you more specific instructions. If you have problems or questions, contact your health care provider. What can I expect after the procedure? After the procedure, it is common to have: ??? Soreness or pain near your incision. ??? Some swelling or bruising near your incision. Follow these instructions at home: Medicines ??? Take auez-plz-bujlmfl and prescription medicines only as told by your health care provider. ??? If you were prescribed an antibiotic medicine, take it as told by your health care provider. Do not stop taking the antibiotic even if you start to feel better. Bathing ??? Do not take baths, swim, or use a hot tub until your health care provider approves. Ask your health care provider if you can take showers. You may only be allowed to take sponge baths. Incision care ??? Follow instructions from your health care provider about how to take care of your incision. Make sure you: ? Wash your hands with soap and water before you change your bandage (dressing). If soap and water are not available, use hand pencil maker. ? Change your dressing as told by your health care provider. ? Keep your dressing dry. ? Leave stitches (sutures), skin glue, or [...] Warmth. ? Pus or a bad smell. Driving ??? Do not drive for 24 hours if you were given a medicine to help you relax (sedative) during your procedure. ??? If you did not receive a sedative, ask your health care provider when it is safe to drive. Activity ??? Return to your normal activities as told by your health care provider. Ask your health care provider what activities are safe for you. ??? Do not lift anything that is heavier than 10 lb (4.5 kg), or the limit that you are told, until your health care provider says that it is safe. ??? Do not do activities that involve lifting your arms over your head. General instructions ??? Do not use any products that contain nicotine or tobacco, such as cigarettes and e-cigarettes. These can delay healing. If you need help quitting, ask your health care provider. ??? Keep all follow-up visits as told [...] coming from your incision. ??? You have pain that is not relieved by your pain medicine. Get help right away if you have: ??? A fever or chills. ??? Chest pain. ??? Difficulty breathing. Summary ??? After the procedure, it is common to have pain, soreness, swelling, or bruising near your incision. ??? If you were prescribed an antibiotic medicine, take it as told by your health care provider. Do not stop taking the antibiotic even if you start to feel better. ??? Do not drive for 24 hours if you were given a sedative during your procedure. ??? Return to your normal activities as told by your health care provider. Ask your health care provider what activities are safe for you. This information is not intended to replace advice given to you by your health care provider. Make sure you discuss any questions you have with your health care provider. Document Released: 08/07/2016 Document Revised: 10/10/2018 Document Reviewed: 10/10/2018 [employer] Patient Education ?? 2020 [employer] Moderate Conscious Sedation, Adult, Care After These instructions provide you [...] can I expect after the procedure? After your procedure, it is common: ??? To feel sleepy for several hours. ??? To feel clumsy and have poor balance for several hours. ??? To have poor judgment for several hours. ??? To vomit if you eat too soon. Follow these instructions at home: For at least 24 hours after the procedure: ??? Do not: ? Participate in activities where you could fall or become injured. ? Drive. ? Use heavy machinery. ? Drink alcohol. ? Take sleeping pills or medicines that cause drowsiness. ? Make important decisions or sign legal documents. ? Take care of children on your own. ??? Rest. Eating and drinking ??? Follow the diet recommended by your health care provider. ??? If you vomit: ? Drink water, juice, or soup when you can drink without vomiting. ? Make sure you have little or no nausea before eating solid foods. General instructions ??? Have a responsible adult stay with you until you are awake and alert. ??? Take jxez-kch-hmuxeqz and prescription medicines only as told by your health care provider. ??? If you smoke, do not smoke without supervision. ??? Keep all follow-up visits as told by your health care provider. This is important. Contact a health care provider if: ??? You keep feeling nauseous or you keep vomiting. ??? You feel light-headed. ??? You develop a rash. ??? You have a fever. Get help right away if: ??? You have trouble breathing. This information is not intended to replace advice given to you by your health care provider. Make sure you discuss any questions you have with your health care provider. Document Released: 06/17/2014 Document Revised: 08/09/2018 Document Reviewed: 12/16/2016 [employer] Patient Education ?? 2020 [employer] Emergency Awareness and Preventative Care STROKE is [...] Assistance with quitting is available by contacting 2-435-MUAF-NOW. This is a free resource providing counseling, support, and referral. Or you may contact your personal physician. Yummy77 Suicide Prevention Lifeline: The National Suicide Prevention [...] This Visit (last charted value for your 05/03/2020 visit) No Laboratory or Other Results This Visit Patient Name:JUANITA ARAM L I have received and understand this information and was given the opportunity to ask questions. Patient/Pharmacy Services Representative Name: Patient/Pharmacy Services Representative Signature: Relationship to Patient: Clinician/Hospital Pharmacy Services Representative Signature: Date: documented in this encounter Plan of Treatment Upcoming Encounters Date Type Department Care Team (Late st Contact Info) Description 06/15/2025 3:00 PM EDT Appointment [facility] [address] [facility] [address] [place] [address] 08/10/2025 1:15 PM EST Office Visit [facility] [place] [facility] [address] [place] [phone] Ida Manzo MD [address] [place] [phone] documented as of this encounter Visit Diagnoses Not on filedocumented in this encounter Care Teams Feed Mill Operator Relationship Specialty Start Date End Date Ida Manzo MD [address] [place] [address] PCP - General Hematology and Oncology 10/13/22 documented as of this encounter
--- OUTSIDE RECORDS SUMMARY | 2025-06-12 13:04 | XMS_ITS | Encounter Summary ---
Author Organization [employer] ([place], [place], [place], [place]) Address [address] [place] [address] Care Team Providers Care Clinic Lead Name Role Phone Ida Manzo MD Primary Care Provider [phone] Encounter Details Date Type Department Care Team (Late st Contact Info) Description 05/02/2019 Transcribed Document [facility] [place] [facility] [place] [address] Ady Casillas MD [address] [place] [address] Social History Tobacco Use Types Packs/Day Years Used Date Smoking Tobacco: Never Assessed Comments Unknown Sex and Gender Information Value Date Recorded Sex Assigned at Not on file Legal Sex Female 6:39 PM CDT Gender Identity Not on file Sexual Orientation Not on file documented as of this encounter Miscellaneous Notes * Cerner Conversion Note - Ady Casillas MD - 05/02/2019 1:04 PM CDT DATE OF PROCEDURE:05/02/2019 PREOPERATIVE DIAGNOSIS(ES): Invasive ductal carcinoma, right breast. POSTOPERATIVE DIAGNOSIS(ES): Invasive ductal carcinoma, right breast. PROCEDURE: 1. Left subclavian PowerPort placement. 2. Intraoperative fluoroscopy. SURGEON: Travis Bellamy M.D. ANESTHESIA: Local MAC. PROCEDURE IN DETAIL: Patient was brought to the operating room, where she was monitored by Anesthesia and IV sedation given. She was sterilely prepped and draped. Preoperative antibiotics were in place. 1% lidocaine with epinephrine was used for local anesthesia. Using the Seldinger technique and a left subclavian vein approach, a single lumen PowerPort catheter was placed under fluoroscopic guidance. The tip of the catheter was positioned within the superior vena cava just above the right atrium. A pocket was created over the left anterior chest wall and the catheter was tunneled into the pocket and attached the single dome port. The port was positioned within the pocket. The port was aspirated with good return, then flushed with heparinized saline. The wound was closed in layers with 2-0 Vicryl followed by running 4-0 Monocryl subcuticular stitch. The small stab incision below the clavicle was closed with a buried 4-0 Monocryl subcuticular stitch. Dermabond was placed over the skin incisions. The patient tolerated the procedure well. There were no immediate complications. She was taken back to Outpatient Surgery where a chest x-ray is pending. Travis Bellamy M.D. Dict: 05/02/2019 13:04:01 Trans: 05/02/2019 14:22:54 CC1: Travis Bellamy M.D. documented in this encounter Plan of Treatment Upcoming Encounters Date Type Department Care Team (Late st Contact Info) Description 06/15/2025 3:00 PM EDT Appointment [address] [place] [address] 08/10/2025 1:15 PM EST Office Visit [facility] - V[address] [facility] [address] [facility] [address] [place] [address] Ida Manzo MD [address] [facility] [address] [place] [address] documented as of this encounter Visit Diagnoses Not on filedocumented in this encounter Care Teams Clinic Lead Relationship Specialty Start Date End Date Ida Manzo MD [address] [place] [address] PCP - General Hematology and Oncology 10/13/22 documented as of this encounter
--- OUTSIDE RECORDS SUMMARY | 2025-06-12 13:04 | XMS_ITS | Encounter Summary ---
Author Organization [employer] ([place], [place], [place], [place]) Address [address] [place] [address] Care Team Providers Care Tourist Agent Name Role Phone Ida Manzo MD Primary Care Provider [phone] Encounter Details Date Type Department Care Team (Late st Contact Info) Description 05/03/2020 Transcribed Document [facility] [place] Family Medicine [facility] [place] [address] ProviderAdy MD [address] [place] [address] Social History Tobacco Use Types Packs/Day Years Used Date Smoking Tobacco: Never Assessed Comments Unknown Sex and Gender Information Value Date Recorded Sex Assigned at Not on file Legal Sex Female 6:39 PM CDT Gender Identity Not on file Sexual Orientation Not on file documented as of this encounter Miscellaneous Notes * Cerner Conversion Note - Ady ProviderMD - 05/03/2020 11:30 AM CDT Nursing Discharge Summary Entered On: 05/03/2020 11:31 EDT Performed On: 05/03/2020 11:30 EDT by Katelyn Adair RN Discharge Documentation Discharge Date/Time : 05/03/2020 12:14 EDT Katelyn Adair RN - 05/03/2020 12:10 EDT Patient Disposition, General : Discharge Discharge To : Home without planned follow-up Mode Of Departure, General Discharge : Private vehicle Accompanied By, Discharge : Spouse IV Discontinued : Yes Personal Belongings With Patient : Yes Discharge Instructions Reviewed With, Opportunity For Questions Given : Patient, Spouse Patient Education Completed : Yes Teaching Method : Explanation, Printed materials Teaching Evaluation : Returns demonstration, Verbalizes understanding Katelyn Adair RN - 05/03/2020 11:30 EDT documented in this encounter Plan of Treatment Upcoming Encounters Date Type Department Care Team (Late st Contact Info) Description 06/15/2025 3:00 PM EDT Appointment [facility] Breast [address] [place] [address] 08/10/2025 1:15 PM EST Office Visit [facility] - [address] [place] [address] Ida Manzo MD [facility] [address] [place] [address] documented as of this encounter Visit Diagnoses Not on filedocumented in this encounter Care Teams Tourist Agent Relationship Specialty Start Date End Date Ida Manzo MD [facility] [address] [place] [address] PCP - General Hematology and Oncology 10/13/22 documented as of this encounter
--- OUTSIDE RECORDS SUMMARY | 2025-06-12 13:04 | XMS_ITS | Clinical Summary ---
Author Organization [employer] ([place], [place], [place], [place]) Address [address] [place] [address] Care Team Providers Care Claims Consultant Name Role Phone Ida Manzo MD Primary Care Provider [phone] Allergies No known active allergies Medications * [...] tablet by mouth as needed. 4 Active Encounters Date Type Department Care Team Description 05/28/2025 Telephone [facility] - [address] [place] [address] Ida Manzo MD Advice Only from Last 3 Months Social History Tobacco Use Types Packs/Day Years [...] Date Aaron rded Speak language other than Azerbaijani at home Not on file 09/20/2023 Want [...] Info) Description 06/15/2025 3:00 PM EDT Appointment [facility] Breast Care [address] [place] [address] 08/10/2025 1:15 PM EST Office Visit [facility] - [address] [place] [address] Ida Manzo MD [address] [place] [address] Health Maintenance Due Date Last Done Comments Depression Screening (12+) 2002 Pap Smear 2011 COVID-19 VACCINE ( - 2023-2 5 season) 2025 Influenza Vaccine (#1) 2025 Tobacco Cessation Counseling and Screening (12+) 02/03/2026 02/03/2025 DTAP/TDAP/TD VACCINES (2 - T d or Tdap) 05/24/2031 05/24/2021 HIV Screening Completed 10/23/2019 Hepatitis C Screening Completed 10/23/2019 Pneumococcal Vaccine: 0-49 Years Aged Out No longer eligible based on patient's age to complete this topic Procedures Procedure Name Priority Date/Time Associated Diagnosis [...] 9:05 AM EST 10/23/2019 5:15 PM EST [facility] Provider LAB BLOOD ORDERABLES Fi nal Result Performing Organization Address [facility] Co de Phone Number [facility] [address] [phone] * Hepatitis panel, acute (10/23/2019 9:05 AM [...] 9:05 AM EST 10/23/2019 5:15 PM EST [facility] Provider LAB BLOOD ORDERABLES Fi nal Result Performing Organization Address [facility] Co de Phone Number [facility] [address] [phone] from Last 3 Months or Most Recently Relevant to Health Maintenance Insurance BLUE CROSS/BLUE SHIELD Care Teams Claims Consultant Relationship Specialty Start Date End Date Ida Manzo MD [address] [address] PCP - General Hematology and Oncology 10/13/22
--- OUTSIDE RECORDS SUMMARY | 2025-06-12 13:04 | XMS_ITS | Encounter Summary ---
Author Organization [employer] ([place], [place], [place], [place]) Address [address] [place] [address] Care Team Providers Care Chrome Worker Name Role Phone Ida Manzo MD Primary Care Provider [phone] Encounter Details Date Type Department Care Team (Late st Contact Info) Description 09/24/2019 Transcribed Document [facility] [place] [address] [place] [address] ProviderAdy MD [address] [place] [address] Social History Tobacco Use Types Packs/Day Years Used Date Smoking Tobacco: Never Assessed Comments Unknown Sex and Gender Information Value Date Recorded Sex Assigned at Not on file Legal Sex Female 6:39 PM CDT Gender Identity Not on file Sexual Orientation Not on file documented as of this encounter Miscellaneous Notes * Cerner Conversion Note - Ady ProviderMD - 09/24/2019 1:30 PM LABORATORY [facility] [address] [address] ARAM POLLACK :1990 Visit Time:09/24/2019 [...] activities are safe for you. ??? Take hawk-zsi-xkqghsc and prescription medicines only as told by [...] 12/03/2001 Document Revised: 04/12/2018 Document Reviewed: 04/12/2018 [employer] Interactive Patient Education ?? 2019 [employer] Lumpectomy, Care After This sheet gives [...] and water are not available, use hand delineator. ? Change your dressing as told by [...] safe for you. General instructions ??? Take mdqr-bai-xramlsi and prescription medicines only as told by [...] 09/12/2007 Document Revised: 05/09/2017 Document Reviewed: 05/09/2017 [employer] Interactive Patient Education ?? 2019 [employer]. acetaminophen and oxycodone (a SEET a MIN [...] may report side effects to FDA at 4-035-HXQ-0707. What other drugs will affect acetaminophen and [...] affect acetaminophen and oxycodone, including prescription and jeji-hge-lrveaqy medicines, vitamins, and herbal products. Not all [...] to ensure that the information provided by [employer]. ('[employer]') is accurate, up-to-date, and complete, but no guarantee is made to that effect. Drug information contained herein may be time sensitive. [employer] information has been compiled for use by healthcare practitioners and consumers in the [place] and therefore [employer] does not warrant that uses outside of the [place] are appropriate, unless specifically indicated otherwise. [employer]'s drug information does not endorse drugs, diagnose patients or recommend therapy. [employer] drug information is an informational resource designed [...] effective or appropriate for any given patient. [employer] does not assume any responsibility for any aspect of healthcare administered with the aid of information [employer] provides. The information contained herein is not intended to cover all possible uses, directions, precautions, warnings, drug interactions, allergic reactions, or adverse effects. If you have questions about the drugs you are taking, check with your doctor, nurse or pharmacist. Copyright 1674-4449 [employer]. Version: 18.02. Revision Date: 08/07/2018. Emergency Awareness [...] Assistance with quitting is available by contacting 6-566-WGXV-NOW. This is a free resource providing counseling, support, and referral. Or you may contact your personal physician. [employer] Suicide Prevention Lifeline: The National Suicide Prevention [...] RT Nuclear Medicine 09/24/2019 10:10 AM [place] [facility] Inj: [place] Node Inj Patient Name:ARAM POLLACK I have received this information and was given the opportunity to ask questions. Patient/Property Underwriter Name: Patient/Property Underwriter Signature: Relationship to Patient: Clinician/Hospital Property Underwriter Signature: Date: documented in this encounter Plan of Treatment Upcoming Encounters Date Type Department Care Team (Late st Contact Info) Description 06/15/2025 3:00 PM EDT Appointment [facility] Breast [facility] [address] [facility] [address] [place] [address] 08/10/2025 1:15 PM EST Office Visit [facility] - [address] [facility] [address] [place] [address] Ida Manzo MD [address] [place] [address] documented as of this encounter Visit Diagnoses Not on filedocumented in this encounter Care Teams Chrome Worker Relationship Specialty Start Date End Date Ida Manzo MD [address] [facility] [address] [place] [address] PCP - General Hematology and Oncology 10/13/22 documented as of this encounter
--- OUTSIDE RECORDS SUMMARY | 2025-06-12 13:04 | XMS_ITS | Encounter Summary ---
Author Organization [employer] ([place], [place], [place], [place]) Address [address] [place] [address] Care Team Providers Care Rubber Engraver Name Role Phone Ida Manzo MD Primary Care Provider [phone] Encounter Details Date Type Department Care Team (Late st Contact Info) Description 05/03/2020 Transcribed Document [facility] [place] [address] ProviderAdy MD [address] [place], [place] [id number] Social History Tobacco Use Types Packs/Day Years Used Date Smoking Tobacco: Never Assessed Comments Unknown Sex and Gender Information Value Date Recorded Sex Assigned at Not on file Legal Sex Female 6:39 PM CDT Gender Identity Not on file Sexual Orientation Not on file documented as of this encounter Miscellaneous Notes * Cerner Conversion Note - Historical ProviderMD - 05/03/2020 11:05 AM CDT Event Note Entered On: 05/03/2020 11:27 EDT Performed On: 05/03/2020 11:05 EDT by Katelyn Adair RN Event Note Description of Event : Pt returned from procedure with dressing to left chest, CDI. Pt placed on monitor, call smith within reach, family at BS Katelyn Adair, BIANCA - 05/03/2020 11:27 EDT documented in this encounter Plan of Treatment Upcoming Encounters Date Type Department Care Team (Late st Contact Info) Description 06/15/2025 3:00 PM EDT Appointment Breast [facility] [address] [facility] [address] [place] [address] 08/10/2025 1:15 PM EST Office Visit [facility] - [address] [place] [address] Ida Manzo MD [address] [place] [address] [address] [place] [address] documented as of this encounter Visit Diagnoses Not on filedocumented in this encounter Care Teams Rubber Engraver Relationship Specialty Start Date End Date Ida Manzo MD [address] [place] [address] [address] [place] [address] PCP - General Hematology and Oncology 10/13/22 documented as of this encounter
--- OUTSIDE RECORDS SUMMARY | 2025-06-12 13:04 | XMS_ITS | Encounter Summary ---
Author Organization [employer] ([place], [place], [place], [place]) Address [address] [place] [address] Care Team Providers Care News Anchor Name Role Phone Ida Manzo MD Primary Care Provider [phone] Encounter Details Date Type Department Care Team (Late st Contact Info) Description 05/02/2019 Transcribed Document [facility] [place] Family Medicine [facility] [place] [address] ProviderAdy MD [address] [place] [address] Social History Tobacco Use Types Packs/Day Years Used Date Smoking Tobacco: Never Assessed Comments Unknown Sex and Gender Information Value Date Recorded Sex Assigned at Not on file Legal Sex Female 6:39 PM CDT Gender Identity Not on file Sexual Orientation Not on file documented as of this encounter Miscellaneous Notes * Cerner Conversion Note - Ady ProviderMD - 05/02/2019 10:59 AM CDT PAT Adult Entered On: 05/02/2019 11:02 EDT Performed On: 05/02/2019 10:59 EDT by JAC LERNER RN Pain Assessment Pain Assessment : Initial assessment Pain Location Comment : denies pain at this time JAC LERNER RN - 05/02/2019 10:59 EDT Height and Weight, Clinical Dosing Height Source : Measured Height Entry Format : [place] Height, Inches : 67 Inch(Converted to: 5 ft 7 Inch, 170.18 cm) Clinical Height : 170.18 cm Weight Source : Standing scale Weight Entry Format : [place] Clinical Dosing Weight : 58.64 kg Weight, Pounds : 129 lb Body Surface Area (BSA) : 1.68 m2 Body Mass Index : 20.2 kg/m2 [place] Body Weight : 61 kg JAC LERNER RN - 05/02/2019 10:59 EDT Health Histories Smoking Status : Never (less than 100 in lifetime; none in last 30 days) Smokeless Tobacco Status : Never JAC LERNER RN - 05/02/2019 10:59 EDT Social History (As Of: 05/02/2019 11:02:34 EDT) Tobacco: Never (less than 100 in lifetime) Smoking Status. (Last Updated: 05/02/2019 11:00:34 EDT by JAC LERNER RN) Alcohol: Alcohol Use History No. (Last Updated: 05/02/2019 11:00:38 EDT by JAC LERNER RN) Substance Abuse: Drug Use Hx: No. Use in Last 12 Months: No. (Last Updated: 05/02/2019 11:00:42 EDT by JAC LERNER RN) Infectious Disease History Infectious Disease History : None, Chicken pox/Shingles Fever/Chills Last 48 Hours : No Travel To Regions with Travel Advisories : No Travel Outside [place] Within Last 30 Days : No Contact With Traveler to Advisory Region : No Tuberculosis Symptoms : None JAC LERNER RN - 05/02/2019 10:59 EDT Anesthesia/Transfusion History Family History of Anesthesia Reaction : Prior transfusion without reaction Blood Transfusion Acceptable to Patient : Yes Transfusion History : Prior anesthesia without reaction Family History of Anesthesia Reaction : None JAC LERNER RN - 05/02/2019 10:59 EDT Functional Assessment Functional ADL Evaluation Index EBN Bathing : Independent (2) Dressing : Independent (2) Toileting : Independent (2) Transferring Bed or Chair : Independent (2) Continence : Independent (2) Feeding : Independent (2) JAC LERNER RN - 05/02/2019 10:59 EDT ADL Index Score : 12 JAC LERNER RN - 05/02/2019 10:59 EDT Advance Directive Patient has Advance Directive *Q : No, patient refuses Advance Directive information JAC LERNER RN - 05/02/2019 10:59 EDT Spiritual/Cultural Needs Significant Loss/Crisis in Past 3 Years : Yes Significant Distress/Coping/Need Support : No Any Spiritual/Cultural Needs or Requests : No JAC LERNER RN - 05/02/2019 10:59 EDT Psychosocial History Does Someone Depend on You for Care? : Yes Currently in Unsafe Situation : No Tried to Harm Yourself in the Past? : No Thoughts of Harming/Killing Yourself : No JAC LERNER RN - 05/02/2019 10:59 EDT Teaching/Learning Assessment Barriers To Learning : None evident Learning Style Preferences Patient : Printed materials, Verbal explanation JAC LERNER RN - 05/02/2019 10:59 EDT General Info Support Person/Pt Rep Name : Eric [phone] JAC LERNER RN - 05/02/2019 10:59 EDT Rogelio Scale Rogelio Sensory Perception : No impairment Rogelio Moisture : Rarely moist Rogelio Activity : Walks frequently Rogelio Mobility : No limitation Rogelio Nutrition : Adequate Rogelio Friction and Shear : No apparent problem Rogelio Score : 22 JAC LERNER RN - 05/02/2019 10:59 EDT Sleep Apnea Risk Assmt Hx of [...] Sleep Apnea Risk Level Score : 0 JAC LERNER RN - 05/02/2019 10:59 EDT documented in this encounter Plan of Treatment Upcoming Encounters Date Type Department Care Team (Late st Contact Info) Description 06/15/2025 3:00 PM EDT Appointment [facility] Breast [facility] [address] [facility] [address] [place] [address] 08/10/2025 1:15 PM EST Office Visit [facility] [facility] - [address] [facility] [address] [facility] [address] [place] [address] Ida Manzo MD [address] [place] [address] documented as of this encounter Visit Diagnoses Not on filedocumented in this encounter Care Teams News Anchor Relationship Specialty Start Date End Date Ida Manzo MD [address] [facility] [address] [place] [address] PCP - General Hematology and Oncology 10/13/22 documented as of this encounter
--- OUTSIDE RECORDS SUMMARY | 2025-06-12 13:04 | XMS_ITS | Encounter Summary ---
Author Organization [employer] ([place], [place], [place], [place]) Address [address] [place] [address] Care Team Providers Care Wharfmaster Name Role Phone Ida Manzo MD Primary Care Provider [phone] Encounter Details Date Type Department Care Team (Late st Contact Info) Description 05/02/2019 Transcribed Document [facility] [place] [facility] [place] [address] Ady Casillas MD [address] [place], [place] [address] Social History Tobacco Use Types Packs/Day Years Used Date Smoking Tobacco: Never Assessed Comments Unknown Sex and Gender Information Value Date Recorded Sex Assigned at Not on file Legal Sex Female 6:39 PM CDT Gender Identity Not on file Sexual Orientation Not on file documented as of this encounter Miscellaneous Notes * Cerner Conversion Note - Ady Casillas MD - 05/02/2019 3:06 PM CDT Patient Education Materials Follows: Outpatient Surgery, Adult, Care After These instructions [...] and water are not available, use hand customer loyalty representative. ? Change your dressing as told by [...] or a bad smell. Medicines ??? Take qfvg-fnz-cyzdbvq and prescription medicines only as told by [...] 12/17/2016 Document Revised: 04/04/2018 Document Reviewed: 12/17/2016 [employer] Interactive Patient Education ? 2019 [employer] Electronically signed by Keshav Jovel Conversion Automation Engineering Technician Cerner at 12/24/2022 11:04 PM CDT documented in this encounter Plan of Treatment Upcoming Encounters Date Type Department Care Team (Late st Contact Info) Description 06/15/2025 3:00 PM EDT Appointment [facility] Breast [facility] [address] [facility] [address] [place] [address] 08/10/2025 1:15 PM EST Office Visit [facility] - [address] [place] [address] Ida Manzo MD [address] [facility] [address] [place] [address] documented as of this encounter Visit Diagnoses Not on filedocumented in this encounter Care Teams Wharfmaster Relationship Specialty Start Date End Date Ida Manzo MD [address] [facility] [address] [place] [address] PCP - General Hematology and Oncology 10/13/22 documented as of this encounter
--- OUTSIDE RECORDS SUMMARY | 2025-06-12 13:04 | XMS_ITS | Encounter Summary ---
Author Organization [employer] ([place], [place], [place], [place]) Address [address] [place] [address] Care Team Providers Care Security Control Assessor Name Role Phone Ida Manzo MD Primary Care Provider [phone] Encounter Details Date Type Department Care Team (Late st Contact Info) Description 05/03/2020 Transcribed Document [facility] Family [place] [address] ProviderAdy MD [address] [place] [address] Social History Tobacco Use Types Packs/Day Years Used Date Smoking Tobacco: Never Assessed Comments Unknown Sex and Gender Information Value Date Recorded Sex Assigned at Not on file Legal Sex Female 6:39 PM CDT Gender Identity Not on file Sexual Orientation Not on file documented as of this encounter Miscellaneous Notes * Cerner Conversion Note - Ady Casillas MD - 05/03/2020 10:58 AM CDT Patient: ARAM POLLACK Age: 29 years Sex: Female : 1990 Associated Diagnoses: None Author: ELOY MARES MD-RAD Pre-OP/Procedure Diagnosis: _Breast cancer Post-OP/Procedure Diagnosis: Need for jail access Procedure Performed: Left subcalvian port remooval Procedural MD: Briseyda Digital Marketer: None Sedation: 4 ml of Versed iv and 200 mcg of Fentanyl iv Findings: Successful left port removal Complications: None EBL: Min Specimen(s) Removed: None Full report to follow. documented in this encounter Plan of Treatment Upcoming Encounters Date Type Department Care Team (Late st Contact Info) Description 06/15/2025 3:00 PM EDT Appointment [facility] Breast [facility] [address] [facility] [address] [place] [address] 08/10/2025 1:15 PM EST Office Visit [facility] - [address] [facility] [address] [place] [address] Ida Manzo MD [facility] [address] [place] [address] documented as of this encounter Visit Diagnoses Not on filedocumented in this encounter Care Teams Security Control Assessor Relationship Specialty Start Date End Date Ida Manzo MD [facility] [address] [place] [address] PCP - General Hematology and Oncology 10/13/22 documented as of this encounter
--- OUTSIDE RECORDS SUMMARY | 2025-06-12 13:04 | XMS_ITS | Encounter Summary ---
Author Organization [employer] ([place], [place], [place], [place]) Address [address] [place] [address] Care Team Providers Care Reshipping Clerk Name Role Phone Ida Manzo MD Primary Care Provider [phone] Encounter Details Date Type Department Care Team (Late st Contact Info) Description 05/03/2020 Transcribed Document [facility] Family Medicine [facility] [place] [address] Ady Casillas MD [address] [place] [address] Social History Tobacco Use Types Packs/Day Years Used Date Smoking Tobacco: Never Assessed Comments Unknown Sex and Gender Information Value Date Recorded Sex Assigned at Not on file Legal Sex Female 6:39 PM CDT Gender Identity Not on file Sexual Orientation Not on file documented as of this encounter Miscellaneous Notes * Cerner Conversion Note - Ady Casillas MD - 05/03/2020 11:28 AM CDT Patient Education Materials Follows: Implanted Port Removal, Care After This sheet [...] these instructions at home: Medicines ??? Take uipp-pny-nsjinwu and prescription medicines only as told by [...] and water are not available, use hand sales and support center agent. ? Change your dressing as told by [...] 08/07/2016 Document Revised: 10/10/2018 Document Reviewed: 10/10/2018 [employer] Patient Education ? 2020 [employer]. Moderate Conscious Sedation, Adult, Care After These [...] you are awake and alert. ??? Take dkaw-iua-wyvpvdh and prescription medicines only as told by [...] 06/17/2014 Document Revised: 08/09/2018 Document Reviewed: 12/16/2016 [employer] Patient Education ? 2019 [employer]. documented in this encounter Plan of Treatment Upcoming Encounters Date Type Department Care Team (Late st Contact Info) Description 06/15/2025 3:00 PM EDT Appointment [address] [place] [address] 08/10/2025 1:15 PM EST Office Visit [facility] - [address] [facility] [address] [facility] [address] [place] [address] Ida Manzo MD [address] [place] [address] [address] [place] [address] documented as of this encounter Visit Diagnoses Not on filedocumented in this encounter Care Teams Reshipping Clerk Relationship Specialty Start Date End Date Ida Manzo MD [address] [place] [address] [address] [place] [address] PCP - General Hematology and Oncology 10/13/22 documented as of this encounter
--- OUTSIDE RECORDS SUMMARY | 2025-06-12 13:04 | XMS_ITS | Encounter Summary ---
Author Organization [employer] ([place], [place], [place], [place]) Address [address] [place] [address] Care Team Providers Care Housecleaner Name Role Phone Ida Manzo MD Primary Care Provider [phone] Encounter Details Date Type Department Care Team (Late st Contact Info) Description 04/25/2019 Transcribed Document [facility] - [address] [facility] [address] [place] [address] Ida Manzo MD [address] [facility] [address] [place] [address] Social History Tobacco Use Types Packs/Day Years Used Date Smoking Tobacco: Never Assessed Comments Unknown Sex and Gender Information Value Date Recorded Sex Assigned at Not on file Legal Sex Female 6:39 PM CDT Gender Identity Not on file Sexual Orientation Not on file documented as of this encounter Miscellaneous Notes * Cerner Conversion Note - Ida Manzo MD - 04/25/2019 9:16 AM EDT [facility] Consultation Note RE: ARAM POLLACK : 1990 Date of Service: 04/25/2019 Referring Provider: JULIA BELLAMY Reason for Referral: Breast cancer CC: Breast cancer HPI: Ms. Pollack is a 28 year old lady who presents today at the request of Dr. Bellamy for consultation regarding breast cancer. She presented last month with a 2 cm palpable mass in the upper inner quadrant of the right breast. Biopsy performed at outside hospital with grade 2 invasive ductal carcinoma, ER/MI/HER-2+. She plans to undergo breast conserving surgery with Dr. Julia Bellamy and presents today to discuss neoadjuvant and/or adjuvant treatment recommendations. At the time of this visit, patient is without complaint. Full ADLs with ECOG PS 0. Past Medical History: Hypertension Irritable Bowel Anxiety Allergies Past Surgical History: breast augmentation, 01/2018 urethral dilation, 11/2017 C section, exploratory lap, partial hysterectomy, 08/2013 leep surgery, 2008 Social History: Denies alcohol, tobacco or illicit drug use. Family History: Mother with lung cancer, no breast or ovarian cancer. Allergies: No Known Drug Allergies Medication List: BuSpar (buspirone) [buspirone (BuSpar)] 1 Tablet Oral Twice a Day sertraline 1 Tablet Oral Daily Zyrtec (cetirizine) [cetirizine (Zyrtec)] 1 Tablet Oral Daily Review of Systems: Gen-no fever, chills, night sweats. No unexplained weight loss or weight gain. Eyes-no vision change, eye pain or redness. ENT-no epistaxis, hearing loss, hoarseness, mucositis, dysphagia or odynophagia Lungs-no dyspnea, cough or hemoptysis. CV-no chest pain, dyspnea at rest or with exertion, palpitations, LE edema. Heme-no unusual bleeding or bruising. GI-no nausea, vomiting, diarrhea, constipation, abdominal pain, melena or hematochezia. -no dysuria, hematuria, or difficulty voiding. MSK-no myalgias or arthralgias. Neuro-no headaches, dizziness, focal numbness or weakness. Skin-no new sores , lesions, rash, or jaundice. Lymphatic-no painful or swollen lymph nodes. Vital Signs: Vital Signs & Weight; Pulse - 69 (04/25/2019 9:13 AM); B/P - 108/56 (04/25/2019 9:13 AM); Pulse Ox - 92% RA (04/25/2019 9:13 AM); Height (in) (inch) - 66.93 (04/25/2019 9:13 AM); Weight (lb) (lb) - 129.74 (04/25/2019 9:13 AM); BSA(D) (m*2) - 1.68 (04/25/2019 9:13 AM) Physical Examination: Gen-NAD, alert and oriented x3. [...] skin or nipple changes. No axillary adenopathy. Radiology: MRI of the breasts 04/28 2.0 x 1.7 cm enhancing mass posterior upper inner quadrant of the right breast. Otherwise unremarkable. Pathology: Biopsy 04/07/19 Breast, biopsy, needle cores, right, 1:00 Invasive ductal carcinoma. [place] combined histologic grade 2, 0.4cm in greatest measured dimensions. Tubule formation: 2 points. Nuclear pleomorphism: 3 points. Mitotic rate: 2 points. ER: Positive MI: positive HER-2/darrel: Positive. Cancer Diagnosis and Staging: Dx Code Description\.br&.br.br\M Stage [ICD10] C50.211 Malignant neoplasm of upper-inner quadrant of right female breast Assessment/Plan: 28 YO with clinical stage I ductal carcinoma of the breast. Counseling today included: diagnosis, prognosis, staging, review of pathologic and histologic features of tumor, and molecular diagnostics. Cancer is early stage, but HER-2 positive, recommend neoadjuvant Taxotere, carboplatin, trastuzumab and Pertuzumab. Written and verbal educational materials provided for recommended neoadjuvant chemotherapy. She is interested in breast conserving surgery, which seems reasonable. It is likely that her tumor receive will diminish with preoperative therapy, clip placed for localization at time of lumpectomy. We discussed adjuvant therapy, which will depend upon the degree of pathologic response. She will need either Herceptin and Perjeta or Kadcyla to complete one year after surgery. She will also need adjuvant endocrine therapy such as tamoxifen or aromatase inhibitor, as well as adjuvant radiation. We did discuss the SOFT/TEXT data for young women with high-grade tumors requiring chemotherapy, demonstrating a survival advantage for ovarian suppression or oophorectomy, will delay oophorectomy until after completion of chemotherapy and surgery. We did review her genetic test results, which did not reveal a pathogenic mutation. She has received genetic counseling. Long discussion regarding side effects of proposed therapy including but not limited to: alopecia, nausea, fatigue, hot flashes, bone pain, cytopenias, infection, organ damage and secondary malignancies. All questions were answered to the patient?s satisfaction, and informed consent was obtained. Prescriptions for anti-emetics were provided electronically today as well as Sancuso, and I have referred for Port-A-Cath placement for chemotherapy administration. Patient was seen by social work for identification of resources, support, and counseling. She does have anxiety regarding her diagnosis and her mother?s previous cancer. She already has Ativan to take as needed. We discussed supportive care measures to minimize side effects of therapy. Patient will return in 1 weeks for initiation of chemotherapy with echocardiogram prior for baseline LVEF assessment prior to trastuzumab. We did discuss fertility preservation. Patient had to have an emergency hysterectomy and does not plan additional childbearing, declines referral for egg retrieval retrieval/harvest/cryopreservation of ovaries. Thank you for allowing me to participate in the care of this patient. Please call with any additional questions or concerns that may arise. Total Visit Time 80 minutes with >50% of time spent in counseling. The following sections of this note were completed by a scribe: history of present illness, review of system, physical exam, assessment and plan (non-warehouse order picker). Documentation by Fredi Flores acting as a scribe in the sections as noted above, for the undersigned provider. I, Dr. Ida Manzo, have read and agreed with the documentation that has been completed regarding this visit. By signing this record I attest the documentation was completed in my physical presence and is an accurate record of the encounter. CC: Julia Bellamy, [facility] Ida Manzo MD [address] [facility], [address] , [place] [address] documented in this encounter Plan of Treatment Upcoming Encounters Date Type Department Care Team (Late st Contact Info) Description 06/15/2025 3:00 PM EDT Appointment [address] [place] [address] 08/10/2025 1:15 PM EST Office Visit [facility] - [place] [address] [facility] [address] [place] [address] [place] [address] [place] [address] [address] [place] [address] documented as of this encounter Visit Diagnoses Not on filedocumented in this encounter Care Teams Housecleaner Relationship Specialty Start Date End Date Ida Manzo MD [address] [facility] [address] [place] [address] PCP - General Hematology and Oncology 10/13/22 documented as of this encounter
--- NOTE | 2025-06-12 13:05 | MM_ITS ---
PROCEDURE INFORMATION: Exam: Bilateral Diagnostic Breast Tomosynthesis Exam date and time: 06/12/2025 1:07 PM Age: 34 years old Clinical indication: HX of breast cancer . Due for bilateral screening mammogram TECHNIQUE: Imaging protocol: Bilateral Diagnostic tomosynthesis and 2D mammography including computer-aided detection (CAD) when performed. Unilateral or bilateral exam. COMPARISON: None provided FINDINGS: MAMMOGRAPHY: Breast composition: The breast is heterogeneously dense, which may obscure small masses. Breast mammogram findings: Subpectoral augmentation implants are present There are postoperative findings within the right breast and right axilla No new mass, architectural distortion, or suspicious cluster of calcifications has developed to suggest malignancy. No axillary adenopathy. IMPRESSION: No mammographic evidence of malignancy. Recommend annual screening mammography unless otherwise clinically indicated. In women diagnosed with breast cancer before age 50 or with personal histories of breast cancer and dense breasts, the [employer] recommends annual supplemental MRI in addition to yearly mammography. Alternative supplemental studies may include breast sonography or contrast enhanced mammography. Please be aware that your insurance company will determine whether they will cover the cost of such screening, despite the recommendation of your doctors and the [employer]. It is your responsibility to determine your insurance benefits. ASSESSMENT: BI-RADS category 2: Benign
== END 2025-06-12 23:59 | disposition home or self-care (01) ==
LOC: RAD 13:01
PROVIDERS: PCP Internal Medicine Adolescent Medicine
DX: Z08 Encounter for follow-up examination after completed treatment for malignant neoplasm (principal); Z85.3 Personal history of malignant neoplasm of breast; R92.333 Mammographic heterogeneous density, bilateral breasts; Z98.82 Breast implant status
CPT/HCPCS: 77062; 77066; G0279